=== PATIENT | male | born 1950 | race Caucasian/White ===

== ENCOUNTER → 2017-08-06 10:00 | Outpatient (CLI) | payer MEDICARE, OTHER, SELFPAY ==
[2017-08-06 11:15] LABS: AST(SGOT) 22 U/L (15-37); Alanine Aminotransfer ALT/SGPT 41 U/L (16-61); Albumin, Serum 3.7 g/dL (3.2-5.0); Alkaline Phosphatase 65 U/L (45-117); Bilirubin, Direct 0.26 mg/dL (0.00-0.30); Cholesterol 109 mg/dL (200); Globulin 3.4 g/dL (2.2-4.2); High Density Lipoprotein 52 mg/dL; Protein, Total 7.1 g/dL (6.4-8.2); Triglycerides 73 mg/dL; Very Low Density Lipoprotein 15 mg/dL (5-40)
== END ==
PROVIDERS: Family Provider Family Medicine; PCP Family Medicine; Visit Provider Physician Assistant Medical
DX: E78.5 Hyperlipidemia, unspecified (principal); Z79.899 Other long term (current) drug therapy
CPT/HCPCS: 36415; 80061; 80076

== ENCOUNTER → 2018-01-07 06:23 | Outpatient (CLI) | payer MEDICARE, OTHER, SELFPAY ==
--- NOTE | 2018-01-07 10:01 | STRESSREP ---
Stress Test Report Date: 01/07/2018 Procedure: Exercise tolerance test/imaging study Indications: Chest pain; CAD; PCI; CABG Consent: Per the patient Procedure: The patient exercised on a Uche protocol for 7 minutes and 25 seconds completing Stage II and 1 minute and 25 seconds of Stage III achieving a peak heart rate of 139 bpm (90 % predicted maximal heart rate) with a peak blood pressure 190/88 mmHg and a peak MET capacity of 9 METs. The baseline ECG demonstrated sinus bradycardia; right bundle branch block. The peak exercise ECG demonstrated continued right bundle branch block. There was a rare PVC during recovery. The functional capacity was considered good. There was no complaint of chest discomfort during exercise or recovery. The examination was discontinued secondary to dyspnea. Impression: 1. Technically adequate (percent predicted maximal heart rate greater than 85%) exercise tolerance test 2. Peak exercise ECG with continued right bundle branch block 3. There was a rare PVC during recovery. 4. Nuclear images pending Myocardial perfusion imaging study: Technique: The patient was injected with 13.7 mCi of technetium 99m Cardiolite and subsequently rest SPECT Cardiolite nuclear imaging was obtained in the horizontal long, vertical long, and short axis views. The patient exercised on a Uche protocol for 7 minutes and 25 seconds completing Stage II and 1 minute and 25 seconds of Stage III achieving a peak heart rate of 139 bpm (90 % predicted maximal heart rate) with a peak blood pressure 190/88 mmHg and a peak MET capacity of 9 METs. The patient was injected with 41.9 mCi of technetium 99m Cardiolite and subsequently stress SPECT Cardiolite nuclear imaging was obtained in the horizontal long, vertical long, and short axis views. A gated Cardiolite study at peak stress was obtained. Interpretation: Rest and stress SPECT Cardiolite nuclear imaging status post realignment, normalization, and attenuation correction, demonstrates the appearance of diminished tracer uptake in portions of the basal inferior septal basal inferior and basal inferolateral segments extending towards the mid inferolateral segments which status post stress appears to be somewhat more prominent in the mid inferolateral segments. There are similar type findings on the resting and stress polar map images. There is diminished end systolic thickening and brightening in the aforementioned areas. The gated Cardiolite study demonstrates diminished myocardial thickening and inward wall motion in the aforementioned areas. The reported LVEF is 54 %. Impression: 1. Rest and stress SPECT Cardiolite nuclear imaging demonstrate myocardial perfusion changes appearing compatible with an area of previous myocardial injury/infarction involving portions of the basal inferoseptal, basal inferior, basal inferolateral segments extending to the mid inferolateral segments with post stress myocardial perfusion changes appearing compatible with area of deo-infarct related myocardial ischemia. 2. The gated Cardiolite study reports an LVEF of 54 %. This note was generated with [employer] software. It may contain incorrect words, spelling, and punctuation that were not noted in checking the note before signing.
== END ==
PROVIDERS: Family Provider Family Medicine; PCP Family Medicine; Visit Provider Physician Assistant Medical
DX: I25.810 Atherosclerosis of coronary artery bypass graft(s) without angina pectoris (principal); Z95.5 Presence of coronary angioplasty implant and graft; Z95.1 Presence of aortocoronary bypass graft; I10 Essential (primary) hypertension; E78.5 Hyperlipidemia, unspecified; E66.9 Obesity, unspecified; R07.9 Chest pain, unspecified
CPT/HCPCS: 78452; 93017; A9500; A4216

== ENCOUNTER → 2018-05-07 07:35 | Outpatient (CLI) | payer MEDICARE, OTHER, SELFPAY ==
[2018-05-07 08:49] LABS: AST(SGOT) 31 U/L (15-37); Alanine Aminotransfer ALT/SGPT 51 U/L (16-61); Albumin, Serum 3.8 g/dL (3.2-5.0); Alkaline Phosphatase 68 U/L (45-117); Bilirubin, Direct 0.29 mg/dL (0.00-0.30); Cholesterol 132 mg/dL (200); Globulin 3.6 g/dL (2.2-4.2); High Density Lipoprotein 54 mg/dL; Protein, Total 7.4 g/dL (6.4-8.2); Triglycerides 81 mg/dL; Very Low Density Lipoprotein 16 mg/dL (5-40)
== END ==
PROVIDERS: Family Provider Family Medicine; PCP Family Medicine; Referring Provider Physician Assistant Medical; Visit Provider Physician Assistant Medical
DX: E78.5 Hyperlipidemia, unspecified (principal)
CPT/HCPCS: 36415; 80061; 80076

== ENCOUNTER → 2019-12-11 08:50 | Outpatient (CLI) | payer MEDICARE, OTHER, SELFPAY ==
[2019-12-04 14:43] VITALS: BMI 40.7
[2019-12-11 09:26] LABS: AST(SGOT) 29 U/L (15-37); Alanine Aminotransfer ALT/SGPT 46 U/L (16-61); Albumin, Serum 3.6 g/dL (3.2-5.0); Alkaline Phosphatase 73 U/L (45-117); Bilirubin, Direct 0.27 mg/dL (0.00-0.30); Cholesterol 135 mg/dL (200); Globulin 3.7 g/dL (2.2-4.2); High Density Lipoprotein 59 mg/dL; Protein, Total 7.3 g/dL (6.4-8.2); Triglycerides 114 mg/dL; Very Low Density Lipoprotein 23 mg/dL (5-40)
== END ==
PROVIDERS: PCP Family Medicine; Referring Provider Internal Medicine Cardiovascular Disease; Visit Provider Internal Medicine Cardiovascular Disease
DX: E78.5 Hyperlipidemia, unspecified (principal)
CPT/HCPCS: 36415; 80061; 80076

== ENCOUNTER 2020-03-28 02:27 | Emergency (ER) | payer MEDICARE, OTHER, SELFPAY ==
[2019-12-04 14:43] VITALS: BMI 40.7
[2020-03-28 02:28] VITALS: BP 107/66; PULSE 67; RESP 18; TEMP 38; O2SAT 94; BMI 41.5
--- NOTE | 2020-03-28 02:35 | EKG12_ITS ---
Test Reason : SYNCOPE Blood Pressure : / mmHG Vent. Rate : 067 BPM Atrial Rate : 067 BPM P-R Int : 146 ms QRS Dur : 144 ms QT Int : 440 ms P-R-T Axes : 033 267 -28 degrees QTc Int : 464 ms Normal sinus rhythm Right bundle branch block Abnormal ECG Confirmed by ARTHUR SALAZAR, RON ([id number]), dictionary editor AZALIA JAMIL ([id number]) on 03/29/2020 11:12:09 AM Referred By: WENDY Confirmed By:RON GIBSON MD
[2020-03-28] MEDS: 0.9% Normal Saline 1,000 ML 1000 ML IV (02:41)
[2020-03-28 02:42] LABS: Absolute Lymphocyte Count 1.65 X10^3/uL (0.83-4.51); Absolute Neutrophil Count 3.3 X10^3/uL (2.0-7.7); Basophil# 0.05 X10^3/uL; Basophil% 0.8 % (0-1); Eosinophil# 0.01 X10^3/uL; Eosinophils% 0.2 % (0-5); Hematocrit 46.5 % (40-54); Hemoglobin 15.2 g/dL (13.0-16.5); Lymphocyte # 1.65 X10^3/ul (4.0); Lymphocyte % 27.5 % (19-41); Mean Corp Hgb Conc 32.7 g/dL (32-36); Mean Corpuscular Hgb 31.5 pg (27.0-32.0); Mean Corpuscular Volume 96.5 fL (80-94); Mean Platelet Vol. 10.9 fl (6.2-12.0); Monocyte# 0.93 X10^3/uL; Monocyte% 15.5 % (0-10); NRBC Flagged by Analyzer 0 % (0-5); Neutrophil # 3.34 X10^3/uL (2.7-7.7); Neutrophil % 55.7 % (47-70); Platelet Count 181 K/mm3 (150-450); RBC Distribution Width CV 14.1 % (11.6-14.6); RBC Distribution Width SD 50.3 fl (35.1-43.9); Red Blood Count 4.82 M/mm3 (4.6-6.2)
--- NOTE | 2020-03-28 02:50 | RAD_ITS ---
HISTORY: syncope, not feeling well last few days EXAM: XR Chest 1 View: COMPARISON: July 15, 2013 FINDINGS: # of images incl. paperwork: 1 Calcific plaque in the aortic arch is similar. Sternal wires remain. Minimal age related fibrotic lung disease is similar Heart is not enlarged. No acute osseous pathology perceived. Pulmonary vascularity is distinct. No effusions. RAD/Chest 1 View (Portable) IMPRESSION: No acute cardiopulmonary disease. at 0335 Reported and signed by: Olegario Kincaid MD Electronically Signed: Olegario Kincaid MD at 3:34 EST Tel , Service support ,
[2020-03-28 02:56] LABS: Anion Gap 5 (5-15); BUN 15 mg/dL (7-18); BUN/Creat Ratio 10.7 RATIO (10-20); Calcium,Total 8.4 mg/dL (8.5-10.1); Chloride 107 mmol/L (98-107); EST Glomerular Filtration Rate 54 mL/min (>60); Est Glom Filt Rate - Afr Amer 65 mL/min (>60); Estimated Creatinine Clearance 52.14 ml/min; Glucose 126 mg/dL (74-106); Sodium Level 140 mmol/L (136-145)
--- NOTE | 2020-03-28 03:47 | ED.DCSUM_ITS ---
- ER Visit Summary Date of Service: 03/28/20 Chief Complaint: Syncope History of Present Illness: The patient is a 69 M who presents with syncope. He states he got up in the middle the night to go to the bathroom and felt dizzy and then had a syncopal episode. No history of this in the past. He had cold symptoms for the past 2 days and has felt fatigued. No chest pain or shortness of breath before or after the syncopal episode. Has been eating and drinking okay. He has had a slight cough as well. There was no seizure-like activity. Physical Examination: Vital signs reviewed. HEENT exam unremarkable. Heart is regular rate and rhythm without murmurs. Lungs are clear to auscultation. Abdomen is soft and nontender. Extremities reveal no edema. Peripheral pulses are equal. Skin exam normal. Neurologic exam normal. Test Results: EKG was sinus rhythm with a right bundle branch block. No acute ST changes. Chest x-ray per my and radiologist interpretation reveals no acute findings. Laboratory studies show a glucose of 126, creatinine 1.4. Troponin is less than 0.015. Covid test is positive. Emergency Department Course and Treatment: The patient was given IV fluids. He feels well. He is 95% on room air. I feel that he can be treated as an outpatient. He would like to go home as well. Patient will increase fluids and take Tylenol for any pain and fever. Treatment Plan: [] Disposition: Discharge Impression: Syncope, COVID-19 This note was generated with [employer] dictation software. It may contain incorrect words, spelling, and punctuation that were not noted in review of the chart prior to signing ED Disposition - Plan for ED Patient: Disposition: Home or Assisted Living Instructions: ED VAGAL SYNCOPE Referrals: Damián Smith III, MD [Primary Care Provider] -
[2020-03-28 04:01] VITALS: BP 110/74; PULSE 60; RESP 19; O2SAT 95
== END 2020-03-28 04:01 | disposition home or self-care (01) ==
PROVIDERS: Emergency Provider Emergency Medicine; PCP Family Medicine
DX: R55 Syncope and collapse (principal); U07.1 COVID-19; I25.10 Atherosclerotic heart disease of native coronary artery without angina pectoris; I10 Essential (primary) hypertension; Z79.82 Long term (current) use of aspirin; Z79.899 Other long term (current) drug therapy
CPT/HCPCS: 71045; 80048; 84484; 85025; 87426; 93005; 99285; J7030

== ENCOUNTER → 2020-09-18 10:48 | Outpatient (CLI) | payer MEDICARE, OTHER, SELFPAY ==
[2020-09-04 13:47] VITALS: BMI 44.5
--- NOTE | 2020-09-18 10:49 | ECHOD_ITS ---
Reason For Study: SOB Procedure This was a 2D Doppler, Color Flow transthoracic echocardiogram. The study was technically difficult. Contrast injection was performed. Exam performed in department. Left Ventricle Based upon the 2D echocardiographic and contrast enhanced images obtained there appears to be grossly normal left ventricular size, wall motion, and systolic function. The estimated ejection fraction is 60 %. Diastolic function is indeterminate. Right Ventricle Based upon the 2D echocardiographic images obtained there appears to be grossly normal right ventricular size and systolic function. Atria Normal left atrium. Normal right atrium. No doppler evidence for ASD. Mitral Valve There is no mitral annular calcification. Normal mitral valve. Tricuspid Valve The tricuspid valve is not well visualized. Aortic Valve Trisinus/trileaflet aortic valve. Mild focal aortic valve calcification. Pulmonic Valve The pulmonic valve is not well visualized. Trivial pulmonic valve insufficiency. Great Vessels Normal sized aortic root. Pericardium/Pleural No pericardial effusion. Medication 22 gauge I.V. with prn adaptor inserted into right arm. Diluted definity 3ml given slow IV push to enhance endocardial definition. MMode/2D Measurements & Calculations LVIDd: 3.9 cm IVSd: 1.2 cm Ao root diam: 3.8 cm LVIDs: 3.2 cm LVPWd: 1.4 cm LA dimension: 4.4 cm FS: 20.0 % LAV(MOD-bp): 92.0 ml LA A4 area: 24.0 cm2 LAV(MOD-bp) Indexed: 36.6 ml/m2 LAV(MOD-sp2): 91.2 ml LAV(MOD-sp4): 71.4 ml Time Measurements MV dec time: 0.31 sec Doppler Measurements & Calculations MV E max darien: 61.0 cm/sec Lat Peak E' Darien: 8.5 cm/sec Med Peak E' Darien: 6.7 cm/sec MV A max darien: 85.3 cm/sec E/E' lat: 7.2 E/E' med: 9.1 MV E/A: 0.71 MV V2 max: 72.8 cm/sec MV P1/2t max darien: 60.4 cm/sec Ao V2 max: 143.8 cm/sec MV max P.1 mmHg MV P1/2t: 158.4 msec Ao max P.3 mmHg MV V2 mean: 38.5 cm/sec MV dec slope: 111.7 cm/sec2 MV mean P.69 mmHg MV V2 VTI: 28.4 cm MVA(P1/2t): 1.4 cm2 LV V1 max: 90.8 cm/sec PA V2 max: 100.2 cm/sec LV V1 max P.3 mmHg ECHO/Echo Complete W/ Contrast Interpretation Summary The study was technically difficult. Contrast injection was performed. Based upon the 2D echocardiographic and contrast enhanced images obtained there appears to be grossly normal left ventricular size, wall motion, and systolic function. The estimated ejection fraction is 60 %. Mild focal aortic valve calcification. Trivial pulmonic valve insufficiency. Diastolic function is indeterminate. Ordering Physician: Johnathan Rico Referring Physician: SYL Smith M.D. Performed By: Shlomo Stauffer RCS
== END ==
PROVIDERS: PCP Family Medicine; Referring Provider Internal Medicine Cardiovascular Disease; Visit Provider Internal Medicine Cardiovascular Disease
DX: I25.810 Atherosclerosis of coronary artery bypass graft(s) without angina pectoris (principal)
CPT/HCPCS: 93306; Q9957; A4216; C8929

== ENCOUNTER 2020-12-15 18:12 | Emergency (ER) | payer MEDICARE, OTHER, SELFPAY ==
[2020-09-04 13:47] VITALS: BMI 44.5
[2020-12-15 18:13] VITALS: BP 144/93; PULSE 90; RESP 18; TEMP 38; O2SAT 95; BMI 43.7
--- NOTE | 2020-12-15 19:04 | EKG12_ITS ---
Test Reason : SOB Blood Pressure : / mmHG Vent. Rate : 082 BPM Atrial Rate : 082 BPM P-R Int : 142 ms QRS Dur : 148 ms QT Int : 412 ms P-R-T Axes : 054 -86 015 degrees QTc Int : 481 ms Normal sinus rhythm Right bundle branch block Left anterior fascicular block Bifascicular block Abnormal ECG Confirmed by ARTHUR SALAZAR, RON ([id number]), editor producer AZALIA JAMIL ([id number]) on 12/17/2020 9:28:43 AM Referred By: LAINE Confirmed By:RON GIBSON MD
--- NOTE | 2020-12-15 19:04 | RAD_ITS ---
STUDY: X-RAY CHEST REASON FOR EXAM: Male, 70 years old. cough TECHNIQUE: Frontal portable view of the chest COMPARISON: 28 March 2020 FINDINGS: There are ill-defined bilateral mid to lower lung zone opacities. There is no pneumothorax, pulmonary edema, cardiomegaly or pleural effusions. There is sternotomy wires. Osseous structures are intact. RAD/Chest 1 View (Portable) IMPRESSION: Questionable bilateral lower lung opacities, possibly early viral pneumonia and/or atelectasis. Consider confirmatory imaging. Electronically Signed: Candi Caldwell MD at 20:30 EDT Tel , Service support ,
[2020-12-15] MEDS: dexAMETHasone 10 MG/ML Vial IV (19:19)
[2020-12-15] MEDS: Acetaminophen 500 MG Tablet 1000 MG PO (19:31)
[2020-12-15 19:32] VITALS: BP 174/90; PULSE 81; RESP 95; TEMP 37.8; O2SAT 18
[2020-12-15 19:34] LABS: Absolute Lymphocyte Count 0.62 X10^3/uL (0.83-4.51); Absolute Neutrophil Count 4.3 X10^3/uL (2.0-7.7); Basophil# 0.04 X10^3/uL; Basophil% 0.8 % (0-1); Eosinophil# 0.02 X10^3/uL; Eosinophils% 0.4 % (0-5); Hematocrit 48.7 % (40-54); Hemoglobin 16.1 g/dL (13.0-16.5); Lymphocyte # 0.62 X10^3/ul (0.83-4.51); Lymphocyte % 11.8 % (19-41); Mean Corp Hgb Conc 33.1 g/dL (32-36); Mean Corpuscular Hgb 31.2 pg (27.0-32.0); Mean Corpuscular Volume 94.4 fL (80-94); Mean Platelet Vol. 10.9 fl (6.2-12.0); Monocyte# 0.26 X10^3/uL; NRBC Flagged by Analyzer 0 % (0-5); Neutrophil # 4.27 X10^3/uL (2.7-7.7); Neutrophil % 81.2 % (47-70); POSITIVE MORPHOLOGY YES; Platelet Count 102 K/mm3 (150-450); RBC Distribution Width CV 13.9 % (11.6-14.6); RBC Distribution Width SD 49.1 fl (35.1-43.9); Red Blood Count 5.16 M/mm3 (4.6-6.2); White Blood Count 5.3 K/mm3 (4.4-11.0)
[2020-12-15 19:36] LABS: Differential Indicated SCAN CRITERIA MET
[2020-12-15 19:37] VITALS: O2SAT 95
[2020-12-15 19:46] LABS: Anion Gap 7 (5-15); BUN 17 mg/dL (7-18); BUN/Creat Ratio 13.8 RATIO (10-20); Calcium,Total 8.5 mg/dL (8.5-10.1); Chloride 102 mmol/L (98-107); Creatinine, Serum 1.23 mg/dL (0.70-1.30); EST Glomerular Filtration Rate 62 mL/min (>60); Est Glom Filt Rate - Afr Amer 75 mL/min (>60); Estimated Creatinine Clearance 58.53 ml/min; Glucose 135 mg/dL (74-106); Potassium 3.7 mmol/L (3.5-5.1); Sodium Level 135 mmol/L (136-145); Troponin-I HS 37.6 pg/mL (3.0-78.5)
[2020-12-15 20:01] LABS: Differential Comment SCANNED
[2020-12-15 20:17] LABS: BNP,B-Type NATRIURETIC PEPTIDE 64.9 pg/mL (0-100)
[2020-12-15 20:57] VITALS: BP 170/90; PULSE 84; RESP 16; TEMP 36.9; O2SAT 95
--- NOTE | 2020-12-15 21:08 | ED.VIS.DYS ---
HPI History of Present Illness Chief Complaint: Shortness of Breath Narrative Narrative: Patient is a 70-year-old male who states that he has had about 5 days of nasal congestion cough fatigue and shortness of breath. He states he had Covid back around Thanksgiving and this feels similar nature. He denies any known sick contacts but states that with his persistent symptoms or was concerned he was developing infection once again and therefore comes in for evaluation [facility] Medical History (Updated 12/15/20 @ 21:[address] Jesse Wick, DO) Anxiety and depression Atherosclerosis of coronary artery bypass graft without angina pectoris Daytime somnolence Essential hypertension GERD (gastroesophageal reflux disease) Hyperlipidemia Obesity (BMI 30.0-34.9) BABS (obstructive sleep apnea) Snoring Home Medications aspirin 81 mg PO DAILY@0800 07/15/13 [History Last Taken 07/14/13 0800] atorvastatin 80 mg PO QHS 07/15/13 [History Last Taken 07/14/13 2100] cholecalciferol (vitamin D3) 1,000 unit PO DAILY 07/15/13 [History Last Taken 07/14/13 0800] citalopram 10 mg PO DAILY 07/15/13 [History Last Taken 09/05/13 09:30] clopidogrel 75 mg PO DAILY 07/15/13 [History Last Taken 07/14/13 0800] nitroglycerin 0.4 mg SUBLINGUAL Q5M PRN 07/15/13 [History Last Taken 07/15/13 0400] ascorbic acid (vitamin C) 1,000 mg tablet 1 g PO QDAY tab 07/16/17 [History Last Taken Unknown] losartan 25 mg tablet 25 mg PO QDAY 07/16/17 [History Last Taken Unknown] metoprolol succinate 25 mg tablet,extended release 24 hr 25 mg PO QDAY tab 07/16/17 [History Last Taken Unknown] alprazolam 0.5 mg tablet 0.5 mg PO BID PRN tab 08/30/17 [History Last Taken Unknown] cyclobenzaprine 5 mg tablet 5 mg PO QDAY PRN 08/30/17 [History Last Taken Unknown] gabapentin 300 mg capsule 600 mg PO QHS cap 08/30/17 [History Last Taken Unknown] glucosamine sulfate 1,000 mg capsule 1,000 mg PO QDAY cap 08/30/17 [History Last Taken Unknown] hydrocodone 5 mg-acetaminophen 500 mg tablet 1 tab PO QDAY PRN tab 08/30/17 [History Last Taken Unknown] magnesium oxide 500 mg capsule 500 mg PO QDAY cap 08/30/17 [History Last Taken Unknown] isosorbide mononitrate 60 mg tablet,extended release 24 hr 60 mg PO DAILY #90 tab 03/14/18 [Rx Last Taken Unknown] sodium chloride-aloe vera nasal spray 1 spray INTRANASAL Q1-4H PRN 05/09/18 [History Last Taken Unknown] ranolazine 500 mg tablet,extended release,12 hr 500 mg PO BID #180 tab 08/19/20 [Rx Last Taken Unknown] doxycycline hyclate 100 mg PO BID #14 cap 12/15/20 [Rx Last Taken Unknown] prednisone 40 mg PO DAILY 5 Days #10 tab 12/15/20 [Rx Last Taken Unknown] Allergy/AdvReac Type Severity Reaction Status Date / Time No Known Allergies Allergy Verified 09/04/20 13:51 Family History Father CAD (coronary artery disease) Hypertension Myocardial infarction Hx of CABG Surgical History History of hernia repair History of laminectomy History of tonsillectomy Postsurgical percutaneous transluminal coronary angioplasty (PTCA) status Presence of aortocoronary bypass graft (~09/28/12) Presence of stent in coronary artery (~03/16/13) Social History Smoking Status: Former smoker how long ago did patient quit smokin years ago alcohol intake: current alcohol intake frequency: a few times a week Alcohol type: beer and hard liquor details: occasional beer substance use type: does not use caffeine: Yes Type: coffee Number of servings: 2 ROS ROS ED Constitutional Constitutional ED: Reports chills and fever(s) ENT ENT ED: Reports rhinorrhea; Denies sore throat Cardiovascular Cardiovascular: Denies chest pain Respiratory/Chest Respiratory/Chest: Reports cough and dyspnea Gastrointestinal Gastrointestinal: Reports nausea; Denies abdominal pain, diarrhea or vomiting Genitourinary Genitourinary ED: Denies dysuria Musculoskeletal Musculoskeletal: Reports myalgias Integumentary Denies rash Neurologic Neurologic: Denies headache(s) EXAM Physical Exam Const Vital Signs: 12/15/20 18:13 12/15/20 19:32 12/15/20 20:57 Temperature 100.4 F H 100.1 F H 98.5 F Temperature Source Oral Temporal Temporal Pulse Rate 90 81 84 Respiratory Rate 18 95 H 16 Blood Pressure 144/93 H 174/90 H 170/90 H Blood Pressure Mean 110 118 116 Pulse Ox 95 18 95 Oxygen Delivery Method Room Air Room Air Room Air Positive well nourished and well developed General Appearance ED: well developed HEENT HEENT Narrative: There is cobblestoning the posterior pharynx consistent with sinus drainage but no airway edema or compromise Eyes PERRL and EOMs intact bilaterally Neck supple Lymph Lymphatic Narrative: Positive anterior cervical lymphadenopathy Resp Resp Narrative: Breath sounds are slight diminished throughout with faint expiratory wheeze but no signs of respiratory distress Cardio regular rate and regular rhythm GI non-tender and non-distended Auscultation: normoactive bowel sounds Palpation: soft Back/Spine normal to inspection Extremity Extremity Narrative: No asymmetric edema no pitting edema negative Homans' sign bilaterally Neuro oriented x3 Sensorium / Orientation: alert and oriented to person Psych mental status grossly normal Skin Rashes: no rashes MDM MDM MDM Narrative Medical decision making narrative: Patient presented to the ER with low-grade temperature but otherwise was maintaining a room air pulse ox in the mid 90s and in no acute respiratory distress. With his complaint of symptoms I did elect to perform repeat Covid testing as well as chest x-ray and basic lab. Labs reveal no clinically significant findings. Chest x-ray questions developing infiltrate and Covid test is negative. The patient was ambulated in the hospital and had no desaturation. Therefore at this time with the slight developing pneumonia on x-ray but negative Covid test and no lab abnormalities as well as no desaturation with ambulation patient can be discharged home with symptomatic care Lab Data Labs: Laboratory Results - last 24 hr 12/15/20 12/15/20 12/15/20 19:20 19:20 19:20 WBC 5.3 RBC 5.16 Hgb 16.1 Hct 48.7 MCV 94.4 H MCH 31.2 MCHC 33.1 RDW Std Deviation 49.1 H RDW Coeff of Eddi 13.9 Plt Count 102 L MPV 10.9 Immature Gran % (Auto) 0.800 Neut % (Auto) 81.2 H Lymph % (Auto) 11.8 L Frederick % (Auto) 5.0 Eos % (Auto) 0.4 Baso % (Auto) 0.8 Absolute Neuts (auto) 4.3 Absolute Lymphs (auto) 0.62 L Nucleated RBC % 0 Differential Comment SCANNED Sodium 135 L Potassium 3.7 Chloride 102 Carbon Dioxide 26.0 Anion Gap 7 BUN 17 Creatinine 1.23 Estim Creat Clear Calc 58.53 Est GFR (MDRD) Af Amer 75 Est GFR (MDRD) Non-Af 62 BUN/Creatinine Ratio 13.8 Glucose 135 H Calcium 8.5 Troponin I High Sens 37.6 B-Natriuretic Peptide 64.9 Radiography Diagnostic Testing: Radiology Impression Chest X-Ray 12/15/20 19:04 IMPRESSION: Questionable bilateral lower lung opacities, possibly early viral pneumonia and/or atelectasis. Consider confirmatory imaging. Electronically Signed: Candi Caldwell MD at 20:30 EDT Tel , Service support , Discharge Plan Triage Chief Complaint: Shortness of Breath ED Provider: Jesse Wick Dx/Rx/DC Orders Clinical Impression: Dyspnea, Pneumonia Instructions: ED Dyspnea Prescriptions: New doxycycline hyclate 100 mg capsule 100 mg PO BID Qty: 14 RF: 0 prednisone 20 mg tablet 40 mg PO DAILY 5 Days Qty: 10 RF: 0 No Action magnesium oxide 500 mg capsule 500 mg PO QDAY RF: 0 glucosamine sulfate 1,000 mg capsule 1,000 mg capsule 1,000 mg PO QDAY RF: 0 cyclobenzaprine 5 mg tablet 5 mg PO QDAY PRN (Reason: Pain 1-10 Or Fever) RF: 0 alprazolam [Xanax] 0.5 mg tablet 0.5 mg PO BID PRN (Reason: Anxiety) RF: 0 hydrocodone 5 mg-acetaminophen 500 mg tablet 5-500 mg tablet 1 tab PO QDAY PRN (Reason: Pain Score 1-10) RF: 0 ascorbic acid (vitamin C) 1,000 mg tablet 1 g PO QDAY RF: 0 losartan 25 mg tablet 25 mg PO QDAY RF: 0 metoprolol succinate 25 mg tablet extended release 24 hr 25 mg PO QDAY RF: 0 gabapentin 300 mg capsule 600 mg PO QHS RF: 0 sodium chloride-aloe vera nasal spray spray,non-aerosol 1 spray INTRANASAL Q1-4H PRN (Reason: Allergies) RF: 0 atorvastatin 80 MG tablet 80 mg PO QHS RF: 0 citalopram 10 MG tablet 10 mg PO DAILY RF: 0 clopidogrel 75 MG tablet 75 mg PO DAILY RF: 0 aspirin 81 MG tablet 81 mg PO DAILY@0800 RF: 0 nitroglycerin 0.4 MG tablet 0.4 mg SUBLINGUAL Q5M PRN (Reason: Chest Pain) RF: 0 cholecalciferol (vitamin D3) 1,000 UNIT capsule 1,000 unit PO DAILY RF: 0 isosorbide mononitrate 60 mg tablet extended release 24 hr 60 mg PO DAILY Qty: 90 RF: 3 ranolazine 500 mg tablet extended release 12 hr 500 mg PO BID Qty: 180 RF: 3 Primary Care Provider: Damián Smith III Referrals: Damián Smith III, MD [Primary Care Provider] - 3-5 Days if not improving Disposition Disposition: Home, Self Care
[2020-12-15 21:11] VITALS: BP 153/87; PULSE 65; PULSE 68; RESP 16; RESP 19; TEMP 36.9; O2SAT 95; O2SAT 96
[2020-12-15] MEDS: Doxycycline 100 MG CAPSULE PO (21:16)
== END 2020-12-15 21:24 | disposition home or self-care (01) ==
PROVIDERS: Emergency Provider Emergency Medicine; PCP Family Medicine
DX: J18.9 Pneumonia, unspecified organism (principal); Z86.16 Personal history of COVID-19; E78.5 Hyperlipidemia, unspecified; K21.9 Gastro-esophageal reflux disease without esophagitis; I10 Essential (primary) hypertension; I25.810 Atherosclerosis of coronary artery bypass graft(s) without angina pectoris; E66.9 Obesity, unspecified; G47.33 Obstructive sleep apnea (adult) (pediatric); Z79.02 Long term (current) use of antithrombotics/antiplatelets; Z79.82 Long term (current) use of aspirin; Z79.899 Other long term (current) drug therapy; Z87.891 Personal history of nicotine dependence; Z68.41 Body mass index [BMI] 40.0-44.9, adult; R06.02 Shortness of breath
CPT/HCPCS: 71045; 80048; 83880; 84484; 85025; 87426; 93005; 96374; 99283; A4216

== ENCOUNTER → 2021-03-19 11:52 | Outpatient (CLI) | payer MEDICARE, OTHER, SELFPAY ==
[2021-03-19 15:26] LABS: AST(SGOT) 32 U/L (15-37); Alanine Aminotransfer ALT/SGPT 54 U/L (16-61); Albumin, Serum 3.5 g/dL (3.2-5.0); Alkaline Phosphatase 67 U/L (45-117); Bilirubin, Direct 0.23 mg/dL (0.00-0.30); Cholesterol 130 mg/dL (200); Globulin 3.5 g/dL (2.2-4.2); High Density Lipoprotein 53 mg/dL; Triglycerides 145 mg/dL; Very Low Density Lipoprotein 29 mg/dL (5-40)
== END ==
PROVIDERS: PCP Family Medicine; Visit Provider Physician Assistant Medical
DX: E78.00 Pure hypercholesterolemia, unspecified (principal)
CPT/HCPCS: 36415; 80061; 80076

== ENCOUNTER 2021-05-27 10:26 | Emergency (ER) | payer MEDICARE, OTHER, SELFPAY ==
[2021-05-27 10:28] VITALS: BP 181/103; PULSE 75; RESP 16; TEMP 36.6; O2SAT 98; BMI 44.4
--- NOTE | 2021-05-27 10:36 | RAD_ITS ---
STUDY: X-RAY - LEFT HAND REASON FOR EXAM: Male, 70 years old. Laceration of the third digit. TECHNIQUE: 3 view(s) of the hand. COMPARISON: None. FINDINGS: Normal radiocarpal articulation. Normal distal radioulnar joint. Normal visualized carpal bones. Normal carpal articulations There is degenerative arthrosis of the carpometacarpal articulation of the thumb with lateral subluxation of the first metacarpus. Normal second through fifth carpometacarpal joints. Normal metacarpi. Normal metacarpophalangeal joint of the thumb. Normal interphalangeal joint of the thumb. Normal proximal and distal phalanges of the thumb. Normal metacarpophalangeal joints of the second through fifth fingers. There is diffuse articular joint space narrowing of the proximal and distal interphalangeal joints of the second through fifth fingers, but without erosive changes or periarticular soft tissue swelling. Transverse fracture of the distal portion of the distal phalanx of the third digit. Soft tissue swelling. RAD/Hand Min 3 Views IMPRESSION: Transverse fracture of the distal portion of the distal phalanx of the third digit Soft tissue swelling. Joint changes of the proximal and distal interphalangeal joints. Electronically Signed: Rojas Varghese MD at 11:46 EST ,
--- NOTE | 2021-05-27 10:37 | EDS_ITS ---
HPI History of Present Illness Chief Complaint: Upper Extremity Injury Informant: patient Narrative Narrative: Patient received a tearing/crush/cutting injury from a walk behind snowblower to his nondominant left hand index fingertip. This happened just before arrival. He is on Plavix and aspirin also. No other injury. It was bleeding a bit. Putting gauze on it and compression help that. Touching it makes it hurt a little bit more. No other activity changes it. Last tetanus is not certain. He thinks it may be within 10 years but not sure. [facility] Medical History (Updated 05/27/21 @ 12:[address] Seamus Baum MD) Anxiety and depression Atherosclerosis of coronary artery bypass graft without angina pectoris Daytime somnolence Essential hypertension GERD (gastroesophageal reflux disease) Hyperlipidemia Obesity (BMI 30.0-34.9) BABS (obstructive sleep apnea) Snoring Home Medications aspirin 81 mg PO DAILY@0800 07/15/13 [History Last Taken 07/14/13 0800] atorvastatin 80 mg PO QHS 07/15/13 [History Last Taken 07/14/13 2100] cholecalciferol (vitamin D3) 1,000 unit PO DAILY 07/15/13 [History Last Taken 07/14/13 0800] citalopram 10 mg PO DAILY 07/15/13 [History Last Taken 09/05/13 09:30] clopidogrel 75 mg PO DAILY 07/15/13 [History Last Taken 07/14/13 0800] nitroglycerin 0.4 mg SUBLINGUAL Q5M PRN 07/15/13 [History Last Taken 07/15/13 0400] ascorbic acid (vitamin C) 1,000 mg tablet 1 g PO QDAY tab 07/16/17 [History Last Taken Unknown] losartan 25 mg tablet 25 mg PO QDAY 07/16/17 [History Last Taken Unknown] metoprolol succinate 25 mg tablet,extended release 24 hr 25 mg PO QDAY tab 07/16/17 [History Last Taken Unknown] alprazolam 0.5 mg tablet 0.5 mg PO BID PRN tab 08/30/17 [History Last Taken Unknown] cyclobenzaprine 5 mg tablet 5 mg PO QDAY PRN 08/30/17 [History Last Taken Unknown] gabapentin 300 mg capsule 600 mg PO QHS cap 08/30/17 [History Last Taken Unknown] glucosamine sulfate 1,000 mg capsule 1,000 mg PO QDAY cap 08/30/17 [History Last Taken Unknown] hydrocodone 5 mg-acetaminophen 500 mg tablet 1 tab PO QDAY PRN tab 08/30/17 [History Last Taken Unknown] magnesium oxide 500 mg capsule 500 mg PO QDAY cap 08/30/17 [History Last Taken Unknown] isosorbide mononitrate 60 mg tablet,extended release 24 hr 60 mg PO DAILY #90 tab 03/14/18 [Rx Last Taken Unknown] sodium chloride-aloe vera nasal spray 1 spray INTRANASAL Q1-4H PRN 05/09/18 [History Last Taken Unknown] ranolazine 500 mg tablet,extended release,12 hr 500 mg PO BID #180 tab 08/19/20 [Rx Last Taken Unknown] meloxicam 15 mg tablet 15 mg PO DAILY 03/19/21 [History Last Taken Unknown] cephalexin 500 mg PO Q6 #40 cap 05/27/21 [Rx Last Taken Unknown] oxycodone-acetaminophen [Percocet] 1 tab PO Q6H PRN 3 Days #10 tab 05/27/21 [Rx Last Taken Unknown] Allergy/AdvReac Type Severity Reaction Status Date / Time No Known Allergies Allergy Verified 05/27/21 10:28 Family History Father CAD (coronary artery disease) Hypertension Myocardial infarction Hx of CABG Surgical History History of hernia repair History of laminectomy History of tonsillectomy Postsurgical percutaneous transluminal coronary angioplasty (PTCA) status Presence of aortocoronary bypass graft (~09/28/12) Presence of stent in coronary artery (~03/16/13) Social History Smoking Status: Former smoker how long ago did patient quit smokin years ago alcohol intake: current alcohol intake frequency: a few times a week Alcohol type: beer and hard liquor details: occasional beer substance use type: does not use caffeine: Yes Type: coffee Number of servings: 2 ROS ROS ED Constitutional Constitutional ED: Denies chills or fever(s) Gastrointestinal Gastrointestinal: Denies nausea or vomiting Musculoskeletal Musculoskeletal: Reports other Details: Left fingertip injury see history of present illness Integumentary Reports other Details: Laceration/tear of left Neurologic Neurologic: Reports paresthesias Hematologic/Lymphatic Hematologic/Lymphatic: Reports easy bleeding and easy bruising EXAM Physical Exam Const Vital Signs: 05/27/21 10:28 Temperature 98 F Temperature Source Temporal Pulse Rate 75 Respiratory Rate 16 Blood Pressure 181/103 H Blood Pressure Mean 129 Pulse Ox 98 Oxygen Delivery Method Room Air Positive well nourished General Appearance ED: NAD HEENT normocephalic; Negative for trauma Resp normal respiratory effort Cardio regular rate Extremity Extremity Narrative: Has a traumatic near amputation of the left long fingertip. The edges are quite irregular crushed and torn. This is not in the clean laceration. There is minimal ooze from the wound. The distal portion does still have some sensation but it is clearly reduced from just proximal to the laceration. There is also a slight subungual hematoma to the nail and the riing finger next to it. Range of motion is actually intact both flexor tendons as well as the extensor tendon. Neuro oriented x3 Sensorium / Orientation: alert Sensory Exam: sensory level loss detected Psych mental status grossly normal Skin Skin Narrative: Irregular jagged laceration mostly on the volar surface. Trauma: laceration MDM MDM MDM Narrative Medical decision making narrative: X-rays are consistent with distal tuft transverse fracture. I discussed risk benefits and options with the patient we proceeded to fix that this here. Procedure: Suture and repair of crush laceration left distal long finger: A total of 3 cc of 1% lidocaine and 0.5% Marcaine mixed were used for a digital block. With excellent anesthesia. The distal areas were copiously scrubbed and irrigated. We looked at this and bloodless field. I am not able to see any bone or protruding bone. The wound edges are extremely damaged and crushed. They are afraid. There is a main laceration that is about 2 cm long that goes significantly around the finger. There is a more proximal 1 cm laceration. A proximal laceration has a small ooze from it more than the distal. The distal portion does not appear to be significantly devascularized though. After extensive cleaning, suturing was done. It was sutured with 5 interrupted 4-0 Ethilon sutures. The remaining distal tuft fatty tissue was tucked within the wound. But the edges are quite irregular. A single stitch was then placed in the 1 cm more proximal laceration. It actually went back with good cosmesis. Good hemostasis was obtained. The patient was happy with the results. I discussed signs of infection. I discussed follow-up as well as leaving the sutures in for 10 to 14 days. He will be referred to orthopedics. I will also place him on antibiotics. Discharge Plan Triage Chief Complaint: Upper Extremity Injury ED Provider: Seamus Baum Dx/Rx/DC Orders Clinical Impression: Laceration of finger of left hand, Open fracture of tuft of distal phalanx of finger, Crush injury to finger, Subungual hematoma of finger Instructions: ED Laceration: All Closures Prescriptions: New oxycodone-acetaminophen [Percocet] 5-325 mg tablet 1 tab PO Q6H PRN (Reason: pain) 3 Days Qty: 10 RF: 0 cephalexin [cephalexin] 500 MG capsule 500 mg PO Q6 Qty: 40 RF: 0 No Action magnesium oxide 500 mg capsule 500 mg PO QDAY RF: 0 glucosamine sulfate 1,000 mg capsule 1,000 mg capsule 1,000 mg PO QDAY RF: 0 cyclobenzaprine 5 mg tablet 5 mg PO QDAY PRN (Reason: Pain 1-10 Or Fever) RF: 0 alprazolam [Xanax] 0.5 mg tablet 0.5 mg PO BID PRN (Reason: Anxiety) RF: 0 hydrocodone 5 mg-acetaminophen 500 mg tablet 5-500 mg tablet 1 tab PO QDAY PRN (Reason: Pain Score 1-10) RF: 0 ascorbic acid (vitamin C) 1,000 mg tablet 1 g PO QDAY RF: 0 losartan 25 mg tablet 25 mg PO QDAY RF: 0 metoprolol succinate 25 mg tablet extended release 24 hr 25 mg PO QDAY RF: 0 gabapentin 300 mg capsule 600 mg PO QHS RF: 0 sodium chloride-aloe vera nasal spray spray,non-aerosol 1 spray INTRANASAL Q1-4H PRN (Reason: Allergies) RF: 0 meloxicam 15 mg tablet 15 mg PO DAILY RF: 0 atorvastatin 80 MG tablet 80 mg PO QHS RF: 0 citalopram 10 MG tablet 10 mg PO DAILY RF: 0 clopidogrel 75 MG tablet 75 mg PO DAILY RF: 0 aspirin 81 MG tablet 81 mg PO DAILY@0800 RF: 0 nitroglycerin 0.4 MG tablet 0.4 mg SUBLINGUAL Q5M PRN (Reason: Chest Pain) RF: 0 cholecalciferol (vitamin D3) 1,000 UNIT capsule 1,000 unit PO DAILY RF: 0 isosorbide mononitrate 60 mg tablet extended release 24 hr 60 mg PO DAILY Qty: 90 RF: 3 ranolazine 500 mg tablet extended release 12 hr 500 mg PO BID Qty: 180 RF: 3 Primary Care Provider: Fred Cowart Referrals: Fred Cowart MD [Primary Care Provider] - Greg Newton MD [STAFF PHYSICIAN] - 3-5 Days Activity Restrictions/Additional Instructions: Follow-up suture removal also in 10-14 days. Disposition Disposition: Home, Self Care
[2021-05-27] MEDS: Diphth,Pertuss(Acell),Tet Vac 0.5 ML Vial IM (10:47)
[2021-05-27] MEDS: Lidocaine 1% (20 ml mdv) 20 ML Vial INFILT (10:48)
[2021-05-27] MEDS: Bupivacaine Mpf 0.5% 30 ML VIAL INFILT (10:48)
[2021-05-27 11:37] VITALS: RESP 16
[2021-05-27] MEDS: Cephalexin 250 MG Capsule 500 MG PO (11:49)
== END 2021-05-27 12:49 | disposition home or self-care (01) ==
PROVIDERS: Emergency Provider Emergency Medicine; PCP Family Medicine; Visit Provider Emergency Medicine
DX: S62.633B Displaced fracture of distal phalanx of left middle finger, initial encounter for open fracture (principal); S67.193A Crushing injury of left middle finger, initial encounter; S60.132A Contusion of left middle finger with damage to nail, initial encounter; X58.XXXA Exposure to other specified factors, initial encounter; Y93.9 Activity, unspecified; Y92.9 Unspecified place or not applicable; F32.A Depression, unspecified; F41.9 Anxiety disorder, unspecified; I25.10 Atherosclerotic heart disease of native coronary artery without angina pectoris; K21.9 Gastro-esophageal reflux disease without esophagitis; E78.5 Hyperlipidemia, unspecified; G47.33 Obstructive sleep apnea (adult) (pediatric); E66.9 Obesity, unspecified; Z79.82 Long term (current) use of aspirin; Z79.899 Other long term (current) drug therapy; Z95.1 Presence of aortocoronary bypass graft; Z87.891 Personal history of nicotine dependence
CPT/HCPCS: 12041; 73130; 90715; 96372; 99283

== ENCOUNTER → 2021-12-18 | Outpatient (CLI) | payer MEDICARE, OTHER, SELFPAY ==
[2021-12-18 09:37] LABS: AST(SGOT) 31 U/L (15-37); Alanine Aminotransfer ALT/SGPT 59 U/L (16-61); Albumin, Serum 3.6 g/dL (3.2-5.0); Alkaline Phosphatase 72 U/L (45-117); Bilirubin, Direct 0.26 mg/dL (0.00-0.30); Cholesterol 115 mg/dL (200); Globulin 3.5 g/dL (2.2-4.2); High Density Lipoprotein 53 mg/dL; Protein, Total 7.1 g/dL (6.4-8.2); Triglycerides 106 mg/dL; Very Low Density Lipoprotein 21 mg/dL (5-40)
== END | disposition home or self-care (01) ==
LOC: LAB 08:11
PROVIDERS: PCP Family Medicine; Referring Provider Physician Assistant Medical; Visit Provider Physician Assistant Medical
DX: E78.5 Hyperlipidemia, unspecified (principal)
CPT/HCPCS: 36415; 80061; 80076

== ENCOUNTER → 2022-02-05 | Outpatient (CLI) | payer MEDICARE, OTHER, SELFPAY ==
--- NOTE | 2022-02-05 13:30 | CT_ITS ---
STUDY: LEFT SHOULDER CT WITHOUT CONTRAST. REASON FOR EXAM: Male, 71 years old. PAIN/PER OP RADIATION DOSAGE (If Supplied By Facility): CTDIvol = ( 44.29 ) mGy, DLP = ( 1483.14 ) mGycm. Individualized dose optimization techniques were used for this CT.? TECHNIQUE: Contiguous axial images of the left shoulder were obtained without contrast. Coronal and sagittal reconstruction and bone and soft tissue algorithm images were provided for interpretation. COMPARISON: None. FINDINGS: Osteopenia. Superior migration of the humeral head which is compatible with rotator cuff degeneration. Mild arthrosis of the glenohumeral joint. Moderate arthrosis of the AC joint with hypertrophic changes. Incidentally noted is moderate to marked lower cervical spondylosis. CT/Extremity Upper without Contra IMPRESSION: Osteopenia with arthrosis of the glenohumeral and acromioclavicular joints. Superior migration of the humeral head which may be secondary to rotator cuff degeneration. Moderate to marked lower cervical spondylosis. No other abnormality. Electronically Signed: Bandar Liao, at 10:45 EDT ,
== END | disposition home or self-care (01) ==
LOC: CT 13:03
PROVIDERS: PCP Family Medicine; Visit Provider Student in an Organized Health Care Education/Training Program
DX: M19.012 Primary osteoarthritis, left shoulder (principal); M25.512 Pain in left shoulder
CPT/HCPCS: 73200

== ENCOUNTER 2022-04-30 09:12 | Observation (INO) | payer MEDICARE, OTHER, SELFPAY ==
--- NOTE | 2022-04-15 09:17 | EKG12_ITS ---
Test Reason : PRE-OP Blood Pressure : / mmHG Vent. Rate : 066 BPM Atrial Rate : 066 BPM P-R Int : 148 ms QRS Dur : 146 ms QT Int : 460 ms P-R-T Axes : 012 266 -18 degrees QTc Int : 482 ms Normal sinus rhythm Right bundle branch block Abnormal ECG Confirmed by MERVIN SALAZAR, PERLITA ([id number]), editorial cartoonist AZALIA JAMIL ([id number]) on 04/15/2022 10:59:26 AM Referred By: Pk Bass Confirmed By:PERLITA JEFFRIES MD
--- NOTE | 2022-04-15 09:22 | RAD_ITS ---
STUDY: X-RAY CHEST REASON FOR EXAM: Male, 71 years old. Chest pain/pressure TECHNIQUE: PA and lateral views of the chest. COMPARISON: 12/15/2020 FINDINGS: The lungs are clear and expanded. There is no demonstrated pleural abnormality. Sternal cerclage wires and vascular clips are present from a prior sternotomy and coronary artery bypass graft procedure (CABG). Normal mediastinum and laron. Normal visualized pulmonary arteries. Normal visualized aortic arch and descending thoracic aorta. Normal visualized thoracic spine. Normal visualized ribs, clavicles, and shoulders. There is no demonstrated abnormality of the visualized soft tissue structures of the upper abdomen. RAD/Chest PA and Lateral IMPRESSION: No acute pulmonary process Electronically Signed: Albin Ewing MD at 12:36 EST ,
[2022-04-15 10:50] LABS: Hematocrit 50.4 % (40-54); Hemoglobin 16.7 g/dL (13.0-16.5); Mean Corp Hgb Conc 33.1 g/dL (32-36); Mean Corpuscular Hgb 31.9 pg (27.0-32.0); Mean Corpuscular Volume 96.4 fL (80-94); Mean Platelet Vol. 11.2 fl (6.2-12.0); Platelet Count 261 K/mm3 (150-450); RBC Distribution Width CV 14.7 % (11.6-14.6); RBC Distribution Width SD 52.7 fl (35.1-43.9); Red Blood Count 5.23 M/mm3 (4.6-6.2); White Blood Count 6.4 K/mm3 (4.4-11.0)
[2022-04-15 11:18] LABS: Anion Gap 7 (5-15); BUN 20 mg/dL (7-18); BUN/Creat Ratio 19.4 RATIO (10-20); Calcium,Total 9.2 mg/dL (8.5-10.1); Chloride 107 mmol/L (98-107); Creatinine, Serum 1.03 mg/dL (0.70-1.30); EST Glomerular Filtration Rate 76 mL/min (>60); Est Glom Filt Rate - Afr Amer 92 mL/min (>60); Glucose 112 mg/dL (74-106); Magnesium 2.4 mg/dL (1.6-2.6); Potassium 4.1 mmol/L (3.5-5.1); Sodium Level 139 mmol/L (136-145)
[2022-04-30] VITALS (14 sets, daily range): BP systolic 101–161; BP diastolic 64–93; PULSE 58–88; RESP 17–18; TEMP 36.2–37.2; O2SAT 94–98; BMI 42.9
[2022-04-30] MEDS: Lactated Ringers 1,000 ML 15 ML IV ×2 (05:04→08:50)
[2022-04-30] MEDS: Magnesium 1 GM over 15 mins IV (05:50)
[2022-04-30] MEDS: Celecoxib 200 MG Capsule 400 MG PO (06:06)
[2022-04-30] MEDS: Gabapentin 600 MG Tablet PO (06:07)
[2022-04-30] MEDS: Acetaminophen 500 MG Tablet 1000 MG PO ×3 (06:07→21:32)
[2022-04-30 06:50] LABS: Bedside Glucose 123 mg/dL (74-106)
--- NOTE | 2022-04-30 07:30 | SHO_PTH ---
PATIENT: KATE AVILA LOC: MS3 U#:[id number] AGE/SX: 71/M [place] [facility] [place]: Dr. Pk Bass DO : 1950 BED: 1 DIS: 05/01/2022 SPEC #: [id number] RECD: 04/30/22 10:29 STATUS: BLAYNE RERemi #: [id number] EVIN: 04/30/22 07:[address]: Pk Bass DEPT: SURGICAL PATHOLOGY RECD BY: Rojelio Montano ENTERED: 04/30/22 10:54 SP TYPE: HUMERUS OTHR DR: MD Dr. Fred Wong MD Tissues: Humerus, NOS Procedures: Decalcification bone/plaque Surgery Specimen Level IV HEADER OPERATION: ERAS, total shoulder replacement PRE-OP DIAGNOSIS: Strain of muscles and tendon of rotator cuff of left shoulder, primary osteoarthritis left shoulder TISSUE SUBMITTED: Bone ? left shoulder MICROSCOPIC DIAGNOSIS Bone of left shoulder, total joint replacement: Degenerative changes of bone are present. Trilineage hematopoiesis. DOMENICO:osmin 05/05/2022 MICROSCOPIC DESCRIPTION Slides are reviewed. GROSS DESCRIPTION Received is one container labeled with the patient's name and designated bone left shoulder. The specimen consists of a humeral head measuring 5 x 5 x 2.5 cm. The articular surface shows areas of erosion, eburnation and osteophyte formation. No soft tissue is identified. Bi Developer sections are submitted in one cassette after decalcification. / ALESHIA:osmin 04/30/2022 TC:5 CPT: 86712, 30642
[2022-04-30] MEDS: Sugammadex Sodium 200 MG/2 ML VIAL IV (09:27)
--- NOTE | 2022-04-30 09:28 | OP.PCM_ITS ---
Report of Operation Date of Procedure: 04/30/22 Description of Surgical Findings:: Preoperative diagnosis: Left shoulder massive rotator cuff tear Postoperative diagnosis: Left shoulder massive rotator cuff tear Procedure: Left reverse total shoulder arthroplasty Surgeon: Pk Bass DO Senior Net Software Developer: STEVE Meyer Anesthesia: General endotracheal with interscalene block Supervisor Frame Sample And Pattern: Juancho White CRNA Complications: None apparent Drains: None Estimated blood loss: 150 cc Urinary output: None IV fluids: 1500 cc crystalloid Specimens: Left proximal humerus resection Surgical implants: Tornier Aequalis PerFORM+ baseplate 29 mm +6 mm offset, standard glenosphere cobalt chrome 39 mm diameter, Tornier perform inlay stem size #3, +3 size number 3 39 mm diameter polyethylene insert, 35 mm central screw. Peripheral screws x4 Surgical indications: This is 71-year-old male seen in the outpatient setting for left shoulder pain and weakness. MRI was obtained and demonstrated a massive left rotator cuff tear. There was some early fatty atrophy of the rotator cuff. I did feel that the rotator cuff repair was reasonable to attempt but high risk of retear is acknowledged. Patient has significant coronary artery disease. I explained that arthroscopic repair of the rotator cuff may results in need for reverse shoulder arthroplasty in the future. Given the risk of surgery and anesthesia with his coronary artery disease, we jointly made a decision to proceed with reverse shoulder arthroplasty to avoid potential retear and another anesthetic event if a rotator cuff repair was attempted We obtained a preoperative CT scan for planning. The risks, benefits, alternatives the procedure was reviewed with the patient and he agreed to proceed. Risks included but were not limited to bleeding, infection, instability, loss of life or limb, risk of anesthesia, neurovascular injury, persistent pain, stiffness, prolonged immobilization, need for additional surgery, loosening of orthopedic hardware. He expressed understanding and wished to proceed with surgery. Surgical details: Patient arrived to [facility] morning of the procedure and was greeted by the same day surgery staff. Prior to his procedure, I greeted the patient in the preoperative holding area I identified the patient by name, record number, and date of . Informed consent was confirmed. The operative extremity was marked. All questions were answered to patient satisfaction. Patient was also seen by anesthesia staff. Interscalene block was administered by the anesthesia staff prior to the procedure. At time of his procedure, patient was brought to the operative suite and positioned supine on a standard table with a beachchair attachment. General anesthesia was induced after all bony prominences were well-padded. Endotracheal tube was placed. After adequate anesthesia and securing the tube, we prepared the patient to be positioned in the beachchair position. A well- padded header machine operator was applied. The nonoperative extremity was placed in a well arm lawrence. He was then brought into the beachchair position after we confirmed an appropriate blood pressure. We then spun the bed 45 degrees. The operative extremity was then prepared. In the butterfly wing of the bed was removed and a well-padded torso strap was applied to secure the patient to the bed. The operative extremity was now free. We then prepped and draped the left upper extremity in normal, sterile orthopedic fashion. We then performed a timeout with all parties in attendance in agreement with the side, site, and operation be performed. 3 g Ancef was administered prior to incision by anesthesia staff, as well as 1 g TXA IV. No concerns were voiced and we elected to proceed. I first marked a standard deltopectoral incision just lateral to the coracoid process in line with the long axis of the humerus. Skin was sharply incised with 10 blade scalpel. I then dissected bluntly through the subcutaneous layers and found the fat stripe between the deltoid and pectoralis major. The cephalic vein was then identified and protected. It was retracted laterally with the deltoid. I then bluntly dissected underneath the deltoid with a Wilson elevator. Austin retractor was placed. The upper 1 cm of the pectoralis major was released. I then identified the long head of the biceps tendon in the intertubercular groove. This was tenodesed in situ with #2 FiberWire. I then amputated the biceps proximal to the tenodesis site and followed the tendon to the supraglenoid tubercle where it was amputated. This identified the lesser and greater tuberosities. The supraspinatus was completely torn and retracted with an exposed greater tuberosity. I then performed a subscapularis peel while rotating the humerus externally. I tagged the subscapularis for possible repair later with a tagging suture. I then made a anatomic neck cut of the cartilaginous surface of the humeral head. Sizing plate for a size #3 stem was utilized to determine appropriate reaming size. A central pin was placed engaging the lateral cortex of the humerus. A size #3 reamer was used to ream the humeral metaphysis and prepare for the inlay stem. A canal finding reamer was utilized prior to sequential broaching to a size #3 short stem with excellent rotational and axial purchase in the humerus. I remove the broach handle left the size #[address] I then subluxed the humerus posterior to the glenoid. I then placed retractors around the posterior and anterior glenoid to expose the glenoid. Glenoid labrum was removed with Bovie cautery protecting the axillary nerve. We then used the custom guide from Lori to position our centering pin, exiting approximately 30 mm from the joint surface along the anterior scapula. Guide was removed and pin was analyzed and compared to preoperative planning. It appeared to be in appropriate position. I then proceeded to ream the face of the glenoid with a standard reamer. Inferior rim of the glenoid was removed with the reamer achieving a flat surface. Approximately 1 mm of cortical bone was removed in the central portion of the glenoid. We then removed the reamer and used the cannulated drill for the central screw. Pin was removed. Post and baseplate was assembled on the back table. We then inserted the baseplate and central screw the assembled baseplate to an appropriate depth and rotation of the wedge to sit flush with the prepared glenoid surface. A Glover was used to confirm depth. Cortical screws then were placed in the peripheral holes with good purchase. The baseplate had excellent purchase and the entire scapula would rotate with rotation of the baseplate. We then impacted the 39 mm glenosphere with a standard eccentricity and tightened the locking screw mechanism. We then removed retractors and turned our attention back to the humerus. I placed a standard + 3 polyethylene insert. I then reduced the shoulder. There was excellent range of motion and stability in all planes of motion. We s elected this as our final size. We removed trials from the humerus after final dislocation. I copiously irrigated the canal. Broach was placed on hand and then impacted to an appropriate depth. Final +3 mm polyethylene insert was placed. Final reduction was then performed. I then copiously irrigated the wound with sterile Betadine and normal saline solution. Hemostasis was excellent. The axillary nerve was visualized and appeared to be intact. The subscapularis was then identified with a tagging suture. Repair would have been likely under undue tension and likely failed. I elected to not perform a subscapularis repair. We then copiously irrigated the wound with sterile Betadine and normal saline solution. We reapproximated the interval with 0 Vicryl suture. Subcutaneous layers were reapproximated with 2 -0 Vicryl suture. Skin was finally running V- Loc 3-0 Monocryl suture and Dermabond. A sterile silver Mepilex dressing was applied. Patient was then placed in a simple sling. Patient tolerated procedure well without complication. He was positioned back in the supine position extubated in the operative suite. He was transferred to the [place] and subsequently to PACU in stable condition. Intraoperative medications: 3 g Ancef IV, 1 g TXA IV x2 Post Operative Plan: Weightbearing: Nonweightbearing left upper extremity, okay for pendulums. Range of motion of wrist elbow and hand as tolerated. Antibiotics: 3 g Ancef IV prior to incision, 24 hours IV antibiotics postoperatively DVT Prophylaxis: Restart home antiplatelet therapy with Plavix and aspirin restarting tomorrow Luna: None Dressing: Maintain silver dressing x7 days. Okay to shower dressing on started on day 4 X-Rays: 2 weeks postop in the office Pain Medication: Oxycodone Rx upon discharge Follow-up: 2 weeks post-operatively with me in the office
--- NOTE | 2022-04-30 09:43 | RAD_ITS ---
STUDY: X-RAY - LEFT SHOULDER REASON FOR EXAM: Male, 71 years old. post op -- AP and Lateral X-Ray of operative shoulder in PACU TECHNIQUE: 2 view(s) of the shoulder. COMPARISON: Chest x-ray dated April 15, 2022 FINDINGS: The humeral head has been resected and a newly placed prosthesis is present with its stem well seated within the proximal one third shaft. The humeral prosthesis proximal head articulating component demonstrates good alignment with the newly placed glenoid ball prosthesis. The glenoid prosthesis is anchored into the bone by several cancellous screws. Expected postoperative gas and soft tissue swelling noted around the shoulder joint. No occult fractures. Normal visualized pulmonary apex. Normal acromioclavicular joint. Normal acromion. Linear atelectasis and trace pleural effusion noted in the left lung base. RAD/Shoulder min 2 Views IMPRESSION: 1. Newly placed left shoulder hardware Electronically Signed: Ignacio Salomon MD at 10:06 EST ,
[2022-04-30 10:11] LABS: Bedside Glucose 152 mg/dL (74-106)
--- NOTE | 2022-04-30 16:12 | PCM.PN.HOSP ---
Subjective Subjective Mr. Agosto is a 71-year-old white male who was admitted electively to the hospital on 04/30/2022 for a left reverse total shoulder arthroplasty. He was diagnosed with a left shoulder massive rotator cuff tear and orthopedic surgery elected to proceed with a total shoulder arthroplasty. We have been consulted postoperatively for chronic medical issues. The patient was evaluated postoperatively on the medical floor. Patient states he is feeling well at this time. Currently sitting up in chair nursing at bedside. No pain as he had a block. Reports his plan is to go home tomorrow. Objective Data Objective Data Vital Signs: Vital Signs Temp Pulse Resp BP Pulse Ox O2 Del Method O2 Flow Rate 98.9 F 68 18 112/64 95 Room Air 2 04/30/22 14:14 04/30/22 14:14 04/30/22 14:14 04/30/22 14:14 04/30/22 15:44 04/30/22 14:14 04/30/22 12:14 Oxygen Flow Rate (L/min) 2 Oxygen Delivery Method Room Air Weight: 135.624 kg Body Mass Index (BMI) 42.9 Intake & Output: Intake and Output for Last 24 Hours 04/28/22 04/29/22 04/30/22 23:59 23:59 23:59 Intake Total 1217 / 1217 Balance 1217 / 1217 Lab / Micro Data Result Diagrams: 04/15/22 09:08 04/15/22 09:08 Labs: Laboratory Results - last 24 hr 04/30/22 05:50: POC Glucose 123 H 04/30/22 09:49: POC Glucose 152 H Micro: Microbiology 04/15/22 09:09 Swab (Method) Nasal Screen MRSA/MSSA - Final Radiography Diagnostic Testing: Radiology Impression Shoulder X-Ray 04/30/22 09:43 IMPRESSION: 1. Newly placed left shoulder hardware Electronically Signed: Ignacio Salomon MD at 10:06 EST , Physical Exam Const alert, oriented x3, no apparent distress, healthy appearing and well nourished Constitutional Narrative: White male sitting up in chair at the bedside, morbidly obese, nursing at bedside, patient appears comfortable, left upper extremity in sling HEENT head/scalp atraumatic and moist oral mucous membranes Head and Scalp: normocephalic Resp normal respiratory effort, no retractions, no use of accessory muscles and clear to auscultation bilaterally Resp Narrative: Diminished but clear Auscultation: Negative for crackles, rhonchi or wheezes Cardio regular rate, regular rhythm, S1 normal heart sound, S2 normal heart sound, no murmurs, no rub, no gallops and no clicks GI normal to inspection, nondistended, normoactive bowel sounds, soft to palpation and non-tender Extremity no clubbing, cyanosis or edema Extremity Narrative: Left upper extremity in sling, postop incision is clean dry Neuro oriented x3, moves all extremities and no focal motor deficits Speech: speech normal Psych affect normal Psych Narrative: Very pleasant Assessment & Plan Assessment/Plan (1) Left rotator cuff tear: PLAN: Plan Large left rotator cuff tear -Postop day 0 left reverse total shoulder arthroplasty -Pain management per primary service -Interscalene block performed -PT per primary service -Continue sling -Anticipate discharge in the next 24 hours CAD/hyperlipidemia/hypertension -CABG x4 - FIGUEROA to LAD, SVG to PDA, SVG to the Ramus, and SVG to the distal OM 09/28/12; PTCA/CLYDE in prox to mid Ramus Intermedius 10/22/10; PTCA of the instent restenosis of the pre existing stent in the prox small ramus intermedius, PTCA/CLYDE in prox large left CX 10/10/12; PTCA/CLYDE in the prox LAD 03/16/13 -Continue home aspirin when okay with orthopedic surgery -Continue home Ativan -Continue home Plavix when okay with orthopedic surgery -Continue isosorbide mononitrate -Continue home losartan -Continue home metoprolol -Continue home Ranexa -No current issues GERD -Patient currently any chronic for the -Monitor and consider as needed Mylanta if there are any issues BABS -CPAP if patient compliant DM-2 -Hold home metformin -Sliding scale -Accu-Cheks COPD -Continue home inhalers -Patient has quit smoking -As needed DuoNebs Depression/anxiety -Continue home hydroxyzine -Continue home citalopram Morbid obesity -BMI 42.9 -Recommend weight loss -Complicates treatment, prognosis, outcomes DVT prophylaxis -Per primary service Charges/Coding Visit Charges OBSV E&M: 08363 Subsequent observation care L2
[2022-04-30] MEDS: Cefazolin 1 GM/50 ML BAG IV ×2 (16:24→23:55)
[2022-04-30 17:41] LABS: Bedside Glucose 167 mg/dL (74-106)
[2022-04-30] MEDS: Gabapentin 300 MG Capsule 600 MG PO (21:31)
[2022-04-30] MEDS: oxyCODONE 5 MG Tablet PO (21:31)
[2022-04-30] MEDS: Ranolazine 500 MG Tablet PO (21:32)
[2022-04-30] MEDS: Senna/Docusate Sodium 1 Tablet 2 TABLET PO (21:32)
[2022-04-30] MEDS: Atorvastatin Calcium 80 MG Tablet PO (21:33)
[2022-04-30 22:36] LABS: Bedside Glucose 113 mg/dL (74-106)
[2022-04-30] MEDS: 0.9% NaCl Peripheral Flush Adult/Peds IV (23:55)
[2022-05-01] MEDS: oxyCODONE 5 MG Tablet PO ×2 (03:02→07:07)
[2022-05-01 05:02] LABS: Hematocrit 43.5 % (40-54); Hemoglobin 14.3 g/dL (13.0-16.5); Mean Corp Hgb Conc 32.9 g/dL (32-36); Mean Corpuscular Hgb 31.9 pg (27.0-32.0); Mean Corpuscular Volume 97.1 fL (80-94); Mean Platelet Vol. 11.4 fl (6.2-12.0); Platelet Count 214 K/mm3 (150-450); RBC Distribution Width CV 14.8 % (11.6-14.6); RBC Distribution Width SD 53.5 fl (35.1-43.9); Red Blood Count 4.48 M/mm3 (4.6-6.2)
[2022-05-01 05:29] LABS: Anion Gap 8 (5-15); BUN 21 mg/dL (7-18); BUN/Creat Ratio 15.9 RATIO (10-20); Calcium,Total 8.6 mg/dL (8.5-10.1); Chloride 104 mmol/L (98-107); Creatinine, Serum 1.32 mg/dL (0.70-1.30); EST Glomerular Filtration Rate 57 mL/min (>60); Est Glom Filt Rate - Afr Amer 69 mL/min (>60); Estimated Creatinine Clearance 53.77 ml/min; Glucose 145 mg/dL (74-106); Potassium 4.2 mmol/L (3.5-5.1); Sodium Level 138 mmol/L (136-145)
[2022-05-01 06:49] VITALS: BP 140/81; PULSE 77; RESP 18; TEMP 36.7; O2SAT 95
[2022-05-01 06:53] VITALS: BMI 42.9
[2022-05-01] MEDS: Acetaminophen 500 MG Tablet 1000 MG PO (06:55)
[2022-05-01 07:25] LABS: Bedside Glucose 131 mg/dL (74-106)
--- NOTE | 2022-05-01 07:46 | DCINST_ITS ---
Discharge Instructions Follow Up Care Test Results: Test results from this visit will be discussed in further detail at your follow- up appointment, if applicable. Discharge Plan Admission Admit Date/Time: 04/30/22 09:12 Primary Reason for Your Visit: Left shoulder replacement Attending Provider: Pk Bass Primary Care Provider: Fred Cowart Consulting Providers: Hal Miranda ; Luisa Mas Instructions Additional Instructions / Restrictions: Follow preprinted instructions from your surgeons office Discharge Orders/Prescriptions Prescriptions: New meloxicam 7.5 mg Tablet 7.5 mg PO BID 28 Days Qty: 56 0RF famotidine 20 mg Tablet 20 mg PO DAILY 28 Days Qty: 28 0RF oxycodone 5 mg Tablet 5 - 10 mg PO Q4H PRN PRN (Reason: Pain Score 4-10) 7 Days Qty: 42 0RF Continued magnesium oxide 500 mg capsule 500 mg PO QDAY glucosamine sulfate 1,000 mg capsule 1,000 mg capsule 1,000 mg PO QDAY cyclobenzaprine 5 mg tablet 5 mg PO QDAY PRN (Reason: Pain 1-10 Or Fever) ascorbic acid (vitamin C) 1,000 mg tablet 1 g PO QDAY losartan 25 mg tablet 25 mg PO QDAY metoprolol succinate 25 mg tablet extended release 24 hr 25 mg PO QDAY gabapentin 300 mg capsule 600 mg PO QHS sodium chloride-aloe vera nasal spray spray,non-aerosol 1 spray INTRANASAL Q1-4H PRN (Reason: Allergies) meloxicam 15 mg tablet 15 mg PO DAILY tiotropium-olodaterol 2.5-2.5 mcg/actuation mist 2 puff inhalation DAILY isosorbide mononitrate 30 mg tablet extended release 24 hr 30 mg PO DAILY ranolazine 500 mg tablet extended release 12 hr 500 mg PO BID Qty: 180 3RF metformin 500 mg tablet extended release 24 hr 500 mg PO DAILY hydroxyzine pamoate 25 mg capsule 25 mg PO ONCE PRN (Reason: Anxiety) atorvastatin 80 MG tablet 80 mg PO QHS Label Comments: LOWERS CHOLESTEROL citalopram 10 MG tablet 10 mg PO DAILY Label Comments: MOOD/ANXIETY clopidogrel 75 MG tablet 75 mg PO DAILY Label Comments: PREVENT BLOOD CLOTS aspirin 81 MG tablet 81 mg PO DAILY@0800 Label Comments: HEART nitroglycerin 0.4 MG tablet 0.4 mg SUBLINGUAL Q5M PRN (Reason: Chest Pain) Label Comments: CHEST PAIN cholecalciferol (vitamin D3) 1,000 UNIT capsule 1,000 unit PO DAILY Label Comments: SUPPLEMENT Discontinued hydrocodone 5 mg-acetaminophen 500 mg tablet 5-500 mg tablet 1 tab PO QDAY PRN (Reason: Pain Score 1-10) Other Ambulatory Orders: 12 Lead EKG (Routine) Timeframe: [id number] Location: None Selected Ordered By: Dr. Hal Miranda Referrals / Follow Up: Fred Cowart MD [Primary Care Provider] - Disposition Disposition (needs filled in before D/C Order can be placed): Home, Self Care
--- NOTE | 2022-05-01 07:46 | PCM.PN.ORT ---
Subjective Subjective Patient seen and examined. Reports pain in his left shoulder controlled with current pain regimen. Tolerating oral intake without nausea or vomiting. Denies chest pain or shortness of breath, fevers or chills. Urinating without difficulty. Objective Data Objective Data Vital Signs: Vital Signs Temp Pulse Resp BP Pulse Ox O2 Del Method O2 Flow Rate 98.1 F 77 18 140/81 H 95 Room Air 2 05/01/22 06:49 05/01/22 06:49 05/01/22 06:49 05/01/22 06:49 05/01/22 06:49 05/01/22 06:49 04/30/22 12:14 Oxygen Flow Rate (L/min) 2 Oxygen Delivery Method Room Air Weight: 299 lb Body Mass Index (BMI) 42.9 Intake & Output: Intake and Output for Last 24 Hours 04/29/22 04/30/22 05/01/22 23:59 23:59 23:59 Intake Total 2619.5 / 2619.5 350 / 350 Balance 2619.5 / 2619.5 350 / 350 Lab / Micro Data Result Diagrams: 05/01/22 03:59 05/01/22 03:59 Labs: Laboratory Results - last 24 hr 04/30/22 09:49: POC Glucose 152 H 04/30/22 17:18: POC Glucose 167 H 04/30/22 22:18: POC Glucose 113 H 05/01/22 03:59: WBC 17.0 H, RBC 4.48 L, Hgb 14.3, Hct 43.5, MCV 97.1 H, MCH 31.9, MCHC 32.9, RDW Std Deviation 53.5 H, RDW Coeff of Eddi 14.8 H, Plt Count 214, MPV 11.4 05/01/22 03:59: Sodium 138, Potassium 4.2, Chloride 104, Carbon Dioxide 26.0, Anion Gap 8, BUN 21 H, Creatinine 1.32 H, Estim Creat Clear Calc 53.77, Est GFR (MDRD) Af Amer 69, Est GFR (MDRD) Non-Af 57 L, BUN/Creatinine Ratio 15.9, Glucose 145 H, Calcium 8.6 05/01/22 06:48: POC Glucose 131 H Micro: Microbiology 04/15/22 09:09 Swab (Method) Nasal Screen MRSA/MSSA - Final Radiography Diagnostic Testing: Radiology Impression Shoulder X-Ray 04/30/22 09:43 IMPRESSION: 1. Newly placed left shoulder hardware Electronically Signed: Ignacio Salomon MD at 10:06 EST Reading Location ID and State: [facility] / [place] , Service support , Physical Exam Narrative General - A&Ox3, NAD. VSS/AF. Left upper Extremity - SILT & 5/5 in radial, ulnar, musculocutaneous, axillary, and median nerve distributions. Radial, ulnar pulses 2+. Compartments soft and compressible. BCR in finger tips. Incisional dressing clean dry and intact. Cardinal motions left hand are intact. Sling in place. Negative Homans' sign bilaterally Assessment & Plan Assessment/Plan (1) Left rotator cuff tear: PLAN: POD#1 s/p left reverse total shoulder arthroplasty - Pain control - Medicine following for medical management - PT/OT - DVT PPX -restart home Plavix and aspirin, SCDs, MIREYA barton, early mobilization -Plan for discharge home today. - Case management - D/C planning
[2022-05-01 08:14] VITALS: BMI 42.9
[2022-05-01 08:34] VITALS: BP 149/88; PULSE 70; RESP 18; TEMP 36.8; O2SAT 94
[2022-05-01] MEDS: Citalopram 10 MG Tablet PO (08:40)
[2022-05-01] MEDS: Losartan Potassium 25 MG Tablet PO (08:40)
[2022-05-01] MEDS: Isosorbide Mononitrate 30 MG Tablet PO (08:40)
[2022-05-01] MEDS: Aspirin E.C. 81 MG Tablet PO (08:40)
[2022-05-01 08:41] VITALS: BP 149/88; PULSE 70
[2022-05-01] MEDS: Metoprolol(XL)Succ 25 MG Tablet PO (08:41)
[2022-05-01] MEDS: Ranolazine 500 MG Tablet PO (08:41)
[2022-05-01] MEDS: Clopidogrel Bisulfate 75 MG Tablet PO (08:41)
[2022-05-01] MEDS: Famotidine 20 MG Tablet PO (08:41)
[2022-05-01] MEDS: Senna/Docusate Sodium 1 Tablet 2 TABLET PO (08:41)
--- NOTE | 2022-05-01 09:10 | CASEMGMT ---
ZACK BRIAN Assessment: Face to Face with pt for initial transition planning/care coordination assessment. ZACK BRIAN introduced self and role at [facility], pt voices understanding and consents to assessment. Pt is A/O x4 and answers all questions appropriately at this time. Pt walking around in the room and stood for the assessment per his request. Care providers, pharmacy, and demographics verified/updated. Admitting Dx:L reverse total shoulder arthroplasty PCP:[facility] Specialists:Kali, ortho; Jacky, cardio Preferred Pharmacy: [facility] Retail Insurance: [facility], A[employer] Prescription Benefit: yes LNOK: Kelly Agosto, Living Arrangements: Pt lives with in a single story house with 3 steps to enter with a rail. Pt reports being I in ADL's and denies concerns at home. Transportation: Pt drives self and denies concerns with transportation. Pt will transport him to medical appts until he can drive. DME/HHC/SNF: Pt has canes, walkers and crutches at home but does not use. Pt has ordered an ice pack machine that will be delivered. Pt has had HHC in the past but is unsure of who provided it. Pt denies SNF stays. Pt states no concerns with going home at time of dc. Pt is going to be here in 10 minutes to pick him up and is anxious to go home. Pt states no further concerns/needs. CM to follow. Advised pt to ask CM if any further question/concerns/needs arise, voices understanding. Pt Goal: Home Plan: Home
--- NOTE | 2022-05-01 13:13 | DS.PCM_ITS ---
Providers Date of Admission: 04/30/22 Primary Care Physician: Dr. Fred Cowart MD Consultations 04/30/22 09:11 Consult: Hospitalist Routine Consulting Provider: Luisa Mas Reason for Consult: Post op left total shoulder, medical management EMERGENT Consult: No MD Notified: Yes Date Notified: 04/30/22 Time Notified: 12:18 Method of Notification: Verbal Reason For Visit: LEFT REVERSE TOTAL SHOULDER ARTHROPLASTY Diagnosis Discharge Diagnosis (1) Left rotator cuff tear: Status: Acute Code(s): M75.102 - Unspecified rotator cuff tear or rupture of left shoulder, not specified as traumatic Plan: POD#1 s/p left reverse total shoulder arthroplasty - Pain control - Medicine following for medical management - PT/OT - DVT PPX -restart home Plavix and aspirin, SCDs, MIREYA ifrahe, early mobilization -Plan for discharge home today. - Case management - D/C planning Medications at Discharge Home Medications aspirin 81 mg tablet,delayed release 81 mg PO DAILY@0800 07/15/13 atorvastatin 80 mg tablet 80 mg PO QHS 07/15/13 cholecalciferol (vitamin D3) 25 mcg (1,000 unit) capsule 1,000 unit PO DAILY 07/15/13 citalopram 10 mg tablet 10 mg PO DAILY 07/15/13 clopidogrel 75 mg tablet 75 mg PO DAILY 07/15/13 nitroglycerin 0.4 mg sublingual tablet 0.4 mg sublingual Q5M PRN Chest Pain 07/15/13 ascorbic acid (vitamin C) 1,000 mg tablet 1 g PO QDAY 07/16/17 losartan 25 mg tablet 25 mg PO QDAY 07/16/17 metoprolol succinate 25 mg tablet,extended release 24 hr 25 mg PO QDAY 07/16/17 cyclobenzaprine 5 mg tablet 5 mg PO QDAY PRN Pain 1-10 Or Fever 08/30/17 gabapentin 300 mg capsule 600 mg PO QHS 08/30/17 glucosamine sulfate 1,000 mg capsule 1,000 mg PO QDAY 08/30/17 magnesium oxide 500 mg capsule 500 mg PO QDAY 08/30/17 sodium chloride-aloe vera nasal spray ([place] Saline Gel nasal spray) 1 spray intranasal Q1-4H PRN Allergies 05/09/18 meloxicam 15 mg tablet 15 mg PO DAILY 03/19/21 isosorbide mononitrate 30 mg tablet,extended release 24 hr 30 mg PO DAILY 06/13/21 ranolazine 500 mg tablet,extended release,12 hr 500 mg PO BID #180 tabs 06/13/21 tiotropium 2.5 mcg-olodaterol 2.5 mcg/actuation mist for inhalation 2 puff inhalation DAILY 06/13/21 hydroxyzine pamoate 25 mg capsule 25 mg PO ONCE PRN Anxiety 12/16/21 metformin 500 mg tablet,extended release 24 hr 500 mg PO DAILY 12/16/21 famotidine 20 mg tablet 20 mg PO DAILY 28 days #28 tabs 05/01/22 meloxicam 7.5 mg tablet 7.5 mg PO BID 28 days #56 tabs 05/01/22 oxycodone 5 mg tablet 5 - 10 mg PO Q4H PRN PRN Pain Score 4-10 7 days #42 tabs 05/01/22 Hospital Course Summary of Care Provided Minutes Spent on Discharge: 15 Hospital Course: Patient underwent uncomplicated left reverse shoulder arthroplasty 04/30/2022. He was placed in observation for early convalescence and medical monitoring. Patient did well in the postoperative course. An internal medicine consult was placed. He worked well with physical occupational therapies. He was able be safely discharged to home on postoperative day #1. Physical Exam Narrative General - A&Ox3, NAD. VSS/AF. Left upper Extremity - SILT & 5/5 in radial, ulnar, musculocutaneous, axillary, and median nerve distributions. Radial, ulnar pulses 2+. Compartments soft and compressible. BCR in finger tips. Incisional dressing clean dry and intact. Cardinal motions left hand are intact. Sling in place. Negative Homans' sign bilaterally Weight / BMI Weight Weight: 299 lb Body Mass Index (BMI) 42.9 ABG / Lab / Microbiology Data Result Diagrams: 05/01/22 03:59 05/01/22 03:59 Laboratory: Laboratory Results - last 24 hr 04/30/22 17:18: POC Glucose 167 H 04/30/22 22:18: POC Glucose 113 H 05/01/22 03:59: WBC 17.0 H, RBC 4.48 L, Hgb 14.3, Hct 43.5, MCV 97.1 H, MCH 31.9, MCHC 32.9, RDW Std Deviation 53.5 H, RDW Coeff of Eddi 14.8 H, Plt Count 214, MPV 11.4 05/01/22 03:59: Sodium 138, Potassium 4.2, Chloride 104, Carbon Dioxide 26.0, Anion Gap 8, BUN 21 H, Creatinine 1.32 H, Estim Creat Clear Calc 53.77, Est GFR (MDRD) Af Amer 69, Est GFR (MDRD) Non-Af 57 L, BUN/Creatinine Ratio 15.9, Glucose 145 H, Calcium 8.6 05/01/22 06:48: POC Glucose 131 H Microbiology: Microbiology 04/15/22 09:09 Swab (Method) Nasal Screen MRSA/MSSA - Final Meaningful Use Info Meaningful Use Diagnoses (Choose all that apply): None applicable Discharge Plan Admission Admit Date/Time: 04/30/22 09:12 Primary Reason for Your Visit: Left shoulder replacement Attending Provider: Pk Bass Primary Care Provider: Fred Cowart Consulting Providers: Hal Miranda ; Luisa Mas Instructions Additional Instructions / Restrictions: Follow preprinted instructions from your surgeons office Discharge Orders/Prescriptions Prescriptions: New meloxicam 7.5 mg Tablet 7.5 mg PO BID 28 Days Qty: 56 0RF famotidine 20 mg Tablet 20 mg PO DAILY 28 Days Qty: 28 0RF oxycodone 5 mg Tablet 5 - 10 mg PO Q4H PRN PRN (Reason: Pain Score 4-10) 7 Days Qty: 42 0RF Continued magnesium oxide 500 mg capsule 500 mg PO QDAY glucosamine sulfate 1,000 mg capsule 1,000 mg capsule 1,000 mg PO QDAY cyclobenzaprine 5 mg tablet 5 mg PO QDAY PRN (Reason: Pain 1-10 Or Fever) ascorbic acid (vitamin C) 1,000 mg tablet 1 g PO QDAY losartan 25 mg tablet 25 mg PO QDAY metoprolol succinate 25 mg tablet extended release 24 hr 25 mg PO QDAY gabapentin 300 mg capsule 600 mg PO QHS sodium chloride-aloe vera nasal spray spray,non-aerosol 1 spray INTRANASAL Q1-4H PRN (Reason: Allergies) meloxicam 15 mg tablet 15 mg PO DAILY tiotropium-olodaterol 2.5-2.5 mcg/actuation mist 2 puff inhalation DAILY isosorbide mononitrate 30 mg tablet extended release 24 hr 30 mg PO DAILY ranolazine 500 mg tablet extended release 12 hr 500 mg PO BID Qty: 180 3RF metformin 500 mg tablet extended release 24 hr 500 mg PO DAILY hydroxyzine pamoate 25 mg capsule 25 mg PO ONCE PRN (Reason: Anxiety) atorvastatin 80 MG tablet 80 mg PO QHS Label Comments: LOWERS CHOLESTEROL citalopram 10 MG tablet 10 mg PO DAILY Label Comments: MOOD/ANXIETY clopidogrel 75 MG tablet 75 mg PO DAILY Label Comments: PREVENT BLOOD CLOTS aspirin 81 MG tablet 81 mg PO DAILY@0800 Label Comments: HEART nitroglycerin 0.4 MG tablet 0.4 mg SUBLINGUAL Q5M PRN (Reason: Chest Pain) Label Comments: CHEST PAIN cholecalciferol (vitamin D3) 1,000 UNIT capsule 1,000 unit PO DAILY Label Comments: SUPPLEMENT Discontinued hydrocodone 5 mg-acetaminophen 500 mg tablet 5-500 mg tablet 1 tab PO QDAY PRN (Reason: Pain Score 1-10) Other Ambulatory Orders: 12 Lead EKG (Routine) Timeframe: [id number] Location: None Selected Ordered By: Dr. Hal Miranda Referrals / Follow Up: Fred Cowart MD [Primary Care Provider] - Disposition Disposition (needs filled in before D/C Order can be placed): Home, Self Care
== END 2022-05-01 09:17 | disposition home or self-care (01) ==
LOC: SDC 10:29 → MS3 10:29
PROVIDERS: Anesthesiology; Admitting Provider Student in an Organized Health Care Education/Training Program; PCP Family Medicine; Referring Provider Student in an Organized Health Care Education/Training Program; Visit Provider Student in an Organized Health Care Education/Training Program
PROC: (CPT 23472; principal; 2022-04-30 07:00)
DX: S46.012A Strain of muscle(s) and tendon(s) of the rotator cuff of left shoulder, initial encounter (principal); E66.01 Morbid (severe) obesity due to excess calories; Z68.41 Body mass index [BMI] 40.0-44.9, adult; I25.10 Atherosclerotic heart disease of native coronary artery without angina pectoris; I10 Essential (primary) hypertension; I25.2 Old myocardial infarction; E78.00 Pure hypercholesterolemia, unspecified; M19.012 Primary osteoarthritis, left shoulder; G47.30 Sleep apnea, unspecified; Z86.16 Personal history of COVID-19; Z87.891 Personal history of nicotine dependence; Z79.899 Other long term (current) drug therapy; Z79.02 Long term (current) use of antithrombotics/antiplatelets; Z79.82 Long term (current) use of aspirin; Z79.84 Long term (current) use of oral hypoglycemic drugs; Z95.1 Presence of aortocoronary bypass graft; R73.03 Prediabetes; X58.XXXA Exposure to other specified factors, initial encounter
CPT/HCPCS: 23472; 01638; 64415; 36415; 71046; 73030; 80048; 82962; 83036; 83735; 85027; 87081; 88305; 88311; 93005; 96365; 96366; 97110; 97166; 97535; 99221; 99251; 99252; C1776; J7120; A4216; G0378; G0463; J2405; J3475

== ENCOUNTER 2022-05-06 15:08 | Emergency (ER) | payer MEDICARE, OTHER, SELFPAY ==
[2022-05-06] VITALS (10 sets, daily range): BP systolic 123–220; BP diastolic 82–127; PULSE 65–73; RESP 14–20; TEMP 36.6; O2SAT 95–99; BMI 43.0
--- NOTE | 2022-05-06 15:42 | RAD_ITS ---
EXAM: XR LEFT SHOULDER COMPLETE, 2 OR MORE VIEWS CLINICAL INDICATION: dislocated left shoulder prosthesis, surgery 04/30/22 TECHNIQUE: Two or more views of the left shoulder. This report was created using [employer] report generation technology. COMPARISON: 04/30/2022 FINDINGS: BONES/JOINTS: There is a total left shoulder prosthesis with the humeral component anteriorly dislocated from the glenoid component. No fractures are identified. No sclerotic or destructive changes observed. SOFT TISSUES: Unremarkable. No soft tissue swelling or gas. No radiopaque foreign body. RAD/Shoulder min 2 Views IMPRESSION: Anterior dislocation of a left shoulder prosthesis. Electronically Signed: Kirk Sofia MD at 17:12 EST ,
--- NOTE | 2022-05-06 15:44 | EX.ED.UPPERE ---
HPI History of Present Illness HPI Narrative: 71-year-old male reported dislocated left shoulder. Chief Complaint: Upper Extremity Injury Occured/Mechanism Mechanism/Context: Yes injury Onset/Context/Timing Onset: Days Context: Sudden Onset Timing: Continuous Quality of Pain: Dull and Aching Current Severity: Mild Maximum Severity: Moderate Associated Symptoms Associated Symptoms: Negative for Parasthesia, Weakness or Loss of Funtion Narrative Narrative: 71-year-old male history of CAD, CABG and stents. Late April had a left shoulder replacement done. He states that he been doing well. About 5 to 7 days ago he was opening a pill bottle and he felt a pop in the shoulder. It did not feel right. Several days later he went and saw his orthopedic surgeon yesterday in the office reportedly they did x-rays and it was dislocated. They were unable to reduce it. They sent him in the ER to have it reduced today. He denies any fall or injury. Denies any other complaints. Prior similar symptoms: No Recent Illness/Hospitalization: Yes [facility]SH [facility] Medical History Alcohol use Anxiety Anxiety and depression Arthritis Atherosclerosis of coronary artery bypass graft without angina pectoris Cardiology follow-up encounter COPD (chronic obstructive pulmonary disease) CPAP (continuous positive airway pressure) dependence Daytime somnolence Diabetes Essential hypertension Former smoker GERD (gastroesophageal reflux disease) High cholesterol History of echocardiogram History of renal disease History of steroid therapy History of stress test Hyperlipidemia Obesity (BMI 30.0-34.9) BABS (obstructive sleep apnea) Restless legs Shortness of breath on exertion Sleep apnea Snoring Wears glasses Wears hearing aid Home Medications aspirin 81 mg tablet,delayed release 81 mg PO DAILY@0800 07/15/13 [History Last Taken 04/29/22] atorvastatin 80 mg tablet 80 mg PO QHS 07/15/13 [History Last Taken 07/14/13 2100] cholecalciferol (vitamin D3) 25 mcg (1,000 unit) capsule 1,000 unit PO DAILY 07/15/13 [History Last Taken 07/14/13 0800] citalopram 10 mg tablet 10 mg PO DAILY 07/15/13 [History Last Taken 09/05/13 09:30] clopidogrel 75 mg tablet 75 mg PO DAILY 07/15/13 [History Last Taken 04/25/22] nitroglycerin 0.4 mg sublingual tablet 0.4 mg sublingual Q5M PRN Chest Pain 07/15/13 [History Last Taken 07/15/13 0400] ascorbic acid (vitamin C) 1,000 mg tablet 1 g PO QDAY 07/16/17 [History Last Taken Unknown] losartan 25 mg tablet 25 mg PO QDAY 07/16/17 [History Last Taken 04/30/22] metoprolol succinate 25 mg tablet,extended release 24 hr 25 mg PO QDAY 07/16/17 [History Last Taken 04/30/22] cyclobenzaprine 5 mg tablet 5 mg PO QDAY PRN Pain 1-10 Or Fever 08/30/17 [History Last Taken Unknown] gabapentin 300 mg capsule 600 mg PO QHS 08/30/17 [History Last Taken Unknown] glucosamine sulfate 1,000 mg capsule 1,000 mg PO QDAY 08/30/17 [History Last Taken Unknown] magnesium oxide 500 mg capsule 500 mg PO QDAY 08/30/17 [History Last Taken Unknown] sodium chloride-aloe vera nasal spray (Hopkins Saline Gel nasal spray) 1 spray intranasal Q1-4H PRN Allergies 05/09/18 [History Last Taken Unknown] meloxicam 15 mg tablet 15 mg PO DAILY 03/19/21 [History Last Taken Unknown] isosorbide mononitrate 30 mg tablet,extended release 24 hr 30 mg PO DAILY 06/13/21 [History Last Taken 04/30/22] ranolazine 500 mg tablet,extended release,12 hr 500 mg PO BID #180 tabs 06/13/21 [Rx Last Taken Unknown] tiotropium 2.5 mcg-olodaterol 2.5 mcg/actuation mist for inhalation 2 puff inhalation DAILY 06/13/21 [History Last Taken Unknown] hydroxyzine pamoate 25 mg capsule 25 mg PO ONCE PRN Anxiety 12/16/21 [History Last Taken Unknown] metformin 500 mg tablet,extended release 24 hr 500 mg PO DAILY 12/16/21 [History Last Taken Unknown] famotidine 20 mg tablet 20 mg PO DAILY 28 days #28 tabs 05/01/22 [Rx Last Taken Unknown] meloxicam 7.5 mg tablet 7.5 mg PO BID 28 days #56 tabs 05/01/22 [Rx Last Taken Unknown] oxycodone 5 mg tablet 5 - 10 mg PO Q4H PRN PRN Pain Score 4-10 7 days #42 tabs 05/01/22 [Rx Last Taken Unknown] Allergy/AdvReac Type Severity Reaction Status Date / Time No Known Allergies Allergy Verified 05/06/22 15:09 Family History Father CAD (coronary artery disease) Hypertension Myocardial infarction Hx of CABG Surgical History History of cataract extraction History of heart surgery History of hernia repair History of laminectomy History of tonsillectomy Postsurgical percutaneous transluminal coronary angioplasty (PTCA) status Presence of aortocoronary bypass graft (~09/28/12) Presence of stent in coronary artery (~03/16/13) Social History Smoking Status: Former smoker how long ago did patient quit smokin years ago alcohol intake: current alcohol intake frequency: a few times a week Alcohol type: beer and hard liquor details: occasional beer substance use type: does not use caffeine: Yes Type: coffee Number of servings: 2 ROS ROS ED ROS Narrative Denies recent illness. Review of Systems ROS Unobtainable: Denies due to encephalopathy Constitutional Constitutional ED: Denies chills or fever(s) Eyes Eyes: Denies blurry vision ENT ENT ED: Denies ear pain Cardiovascular Cardiovascular: Denies chest pain Respiratory/Chest Respiratory/Chest: Denies cough or dyspnea Gastrointestinal Gastrointestinal: Denies abdominal pain Genitourinary Genitourinary ED: Denies dysuria Musculoskeletal Musculoskeletal: Denies back pain Integumentary Denies abscess or Abrasions Neurologic Neurologic: Denies headache(s) Psychiatric Psychiatric: Denies anxiety Endocrine Endocrinology: Denies cold intolerance Hematologic/Lymphatic Hematologic/Lymphatic: Denies easy bleeding or easy bruising Allergic/Immunologic Allergic/Immunologic ED: Denies mouth swelling or tongue swelling EXAM Physical Exam Narrative Exam Narrative: 71-year-old male. Vital signs stable afebrile. No distress. Left arm is in a orthopedic sling. Evaluate the patient in the triage room. H EENT exam unremarkable atraumatic. Lungs clear. Heart regular rhythm rate about 70 no murmur. Chest wall nontender. Abdomen soft nontender. He can move all 4 extremities. He has limited range of motion left shoulder and also discomfort when he attempts to do range of motion left shoulder. He has greatly limited AB and adduction. He has normal strength and sensation in his left hand. 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 Normal radial pulse. The wrist hand and elbow are nontender. He has a well-healing left anterior axilla shoulder surgical incision healing. No signs of infection. Clean and dry. Neurologically is awake and alert. No focal motor deficits. Const Vital Signs: 05/06/22 15:09 Temperature 97.9 F Temperature Source Temporal Pulse Rate 70 Respiratory Rate 14 Blood Pressure 167/97 H Blood Pressure Mean 120 Pulse Ox 95 Oxygen Delivery Method Room Air Positive well nourished, well developed and obese; Negative for cachectic, contractures or unkempt General Appearance ED: well developed and NAD; Negative for unkempt, cachectic, contractures, cyanotic or diaphoretic Nutritional Appearance: obese; Negative for cachectic HEENT Reports moist mucous membranes normocephalic and atraumatic; Negative for trauma or tenderness Eyes PERRL and EOMs intact bilaterally General Eye ED: Negative for other Neck full ROM and supple General: Negative for tenderness Lymph Lymphatic: Negative for other Chest Wall inspection of chest normal and palpation of chest normal Chest: Negative for other Resp normal respiratory effort and clear to auscultation bilaterally Effort and Inspection: Negative for pain with movement Auscultation: Negative for rales, rhonchi or wheezes Cardio regular rate, regular rhythm, S1 normal heart sound, S2 normal heart sound and no murmurs GI non-distended and no masses Inspection: Negative for abdominal distention Auscultation: normoactive bowel sounds Palpation: soft; Negative for tender or guarding Back/Spine no CVA tenderness General Back: Negative for CVA tenderness Cervical Spine: Negative for cervical spine tenderness Thoracic Spine / Upper Back: Negative for thoracic spinal tenderness Extremity normal to inspection and full ROM Extremity Narrative: Except left shoulder. Limited range of motion. Well-healing shoulder surgery incision anteriorly. Dry and clean. Pain with passive and active range of motion left shoulder. Very limited. Left elbow, forearm, wrist and hand neurovascular intact. 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 Normal sensation. Normal radial pulse. Neuro oriented x3, moves all extremities and no focal motor deficits Sensorium / Orientation: alert, oriented to person, oriented to place and oriented to time; Negative for orientation impaired, lethargic or stuporous Motor Exam: strength 5/5 throughout Psych Appearance: Negative for unkempt Attitude: No agitated Mood & Affect: Negative for depressed, anxious or tearful Skin General Skin Exam: Negative for petechiae Lesions: no lesions Rashes: no rashes Trauma: no lacerations or abrasions MDM MDM MDM Narrative Medical decision making narrative: 71-year-old male reportedly has a left dislocated shoulder prosthesis that had surgery in late April. X-ray to be obtained. He will be consciously sedated and reduced. Left shoulder x-ray shows an anterior left shoulder dislocation. Patient was consented and consciously sedated using IV propofol. Initially got 70 mg then 50 and another 50. The entire time he was resisting reduction. I was unable to get any significant movement of the left shoulder prosthesis. Clinically it remains out of place. There is a deficit in the shoulder joint. I discussed with his orthopedic physician Dr. Bass and he will be in the ER and will attempt to do this again with me providing conscious sedation and him doing the reduction. Patient did also receive 50 mg of IV fentanyl on the initial attempt. Radiography Diagnostic Testing: Left shoulder x-ray, 2 views, interpreted by myself shows an anterior left shoulder dislocated prosthesis. No fracture noted. Procedures Procedural Sedation Patient has left anterior shoulder dislocation of her prosthetic shoulder joint. He was consented for conscious sedation and shoulder reduction. Given propofol a total of 170 mg. We were unable to reduce the shoulder. The entire time he was resisting. He was also given IV fentanyl for pain control.: Consent Signed: Yes Any Problems With Anesthesia: No You/Your family experience fever (hyperthermia) w/anesthesia: No Sedation medication: Propofol (Total of 170 mg. Initially 70 mg, second dose of 50 mg and a third dose of 50 mg.) Dose: 170 Route: IV Total Moderate Sedation Units: 10 Comment:: The initial reduction was unsuccessful. Dr. Bass came in I then sedated the patient with etomidate 7 mg. Conscious sedation was about 10 minutes a second time also. We got good conscious sedation. Both Dr. Bass and myself with him pulling traction and a applying force to the shoulder prosthesis it was able to be reduced. X-ray showed a successful reduction. Patient is doing well. He is awake alert. He will be watched in the emergency department and discharged home. He will follow-up with Dr. Bass next week. Discharge Plan Triage Chief Complaint: Upper Extremity Injury ED Provider: Mino Lamas Dx/Rx/DC Orders Clinical Impression: Anterior dislocation of left shoulder, Presence of stent in coronary artery, Obesity (BMI 30.0-34.9), History of CAD (coronary artery disease) Instructions: ED Dislocation: Shoulder (Reduced) Prescriptions: No Action magnesium oxide 500 mg capsule 500 mg PO QDAY glucosamine sulfate 1,000 mg capsule 1,000 mg capsule 1,000 mg PO QDAY cyclobenzaprine 5 mg tablet 5 mg PO QDAY PRN (Reason: Pain 1-10 Or Fever) ascorbic acid (vitamin C) 1,000 mg tablet 1 g PO QDAY losartan 25 mg tablet 25 mg PO QDAY metoprolol succinate 25 mg tablet extended release 24 hr 25 mg PO QDAY gabapentin 300 mg capsule 600 mg PO QHS sodium chloride-aloe vera nasal spray spray,non-aerosol 1 spray INTRANASAL Q1-4H PRN (Reason: Allergies) meloxicam 15 mg tablet 15 mg PO DAILY tiotropium-olodaterol 2.5-2.5 mcg/actuation mist 2 puff inhalation DAILY isosorbide mononitrate 30 mg tablet extended release 24 hr 30 mg PO DAILY ranolazine 500 mg tablet extended release 12 hr 500 mg PO BID Qty: 180 3RF metformin 500 mg tablet extended release 24 hr 500 mg PO DAILY hydroxyzine pamoate 25 mg capsule 25 mg PO ONCE PRN (Reason: Anxiety) atorvastatin 80 MG tablet 80 mg PO QHS Label Comments: LOWERS CHOLESTEROL citalopram 10 MG tablet 10 mg PO DAILY Label Comments: MOOD/ANXIETY clopidogrel 75 MG tablet 75 mg PO DAILY Label Comments: PREVENT BLOOD CLOTS aspirin 81 MG tablet 81 mg PO DAILY@0800 Label Comments: HEART nitroglycerin 0.4 MG tablet 0.4 mg SUBLINGUAL Q5M PRN (Reason: Chest Pain) Label Comments: CHEST PAIN cholecalciferol (vitamin D3) 1,000 UNIT capsule 1,000 unit PO DAILY Label Comments: SUPPLEMENT meloxicam 7.5 mg Tablet 7.5 mg PO BID 28 Days Qty: 56 0RF famotidine 20 mg Tablet 20 mg PO DAILY 28 Days Qty: 28 0RF oxycodone 5 mg Tablet 5 - 10 mg PO Q4H PRN PRN (Reason: Pain Score 4-10) 7 Days Qty: 42 0RF Primary Care Provider: Fred Cowart Referrals: Fred Cowart MD [Primary Care Provider] - Pk Bass DO [Med Staff - Active Staff] - Keep Marilu appointment Activity Restrictions/Additional Instructions: Call and follow-up with your orthopedic physician Dr. Bass. Disposition Disposition: Home, Self Care
[2022-05-06] MEDS: fentaNYL 100 MCG/2 ML Ampul 50 MCG IV (16:20)
[2022-05-06] MEDS: Propofol 200 MG/20 ML Vial 60 MG IV BOLUS (16:31)
[2022-05-06] MEDS: Propofol 200 MG/20 ML Vial IV BOLUS (16:34)
--- NOTE | 2022-05-06 17:00 | RAD_ITS ---
STUDY: X-RAY - LEFT SHOULDER REASON FOR EXAM: Male, 71 years old. post reduction TECHNIQUE: 2 view(s) of the shoulder. COMPARISON: 05/06/2022 at 1556 FINDINGS: Interval reduction of the reverse shoulder arthroplasty prosthesis. Normal acromioclavicular joint. Normal acromion. Normal humeral head and visualized proximal humerus. The soft tissue structures are unremarkable. Normal visualized pulmonary apex. RAD/Shoulder min 2 Views IMPRESSION: Interval reduction of the reverse arthroplasty prosthesis. Electronically Signed: Edward Christie MD at 17:10 EST ,
--- NOTE | 2022-05-06 17:12 | CON.PCM.OR_ITS ---
HPI Consult Data Date of Consult: 05/06/22 HPI Narrative HPI Narrative: KATE AVILA, is a 71 M who is 6 days postop from a left reverse shoulder arthroplasty. Patient was unscrewing a pill bottle 05/03/2022 and felt a pop in his left shoulder and noted severe pain. Prior to this injury, patient states he was doing well and had minimal pain postoperatively. Patient called yesterday and described the situation. I saw the patient in office today. X- rays revealed a anterior superior dislocation of his left reverse shoulder arthroplasty. Closed reduction was attempted in the office setting under articular block. Close reduction was unsuccessful. I referred the patient to the emergency room for conscious sedation. I was called by Dr. Lamas and offered my assistance with a closed reduction maneuver following his initial unsuccessful attempt at closed reduction. Patient denies any fevers, chills, nausea vomiting, chest pain or shortness of breath. Denies any numbness tingling left upper extremity. [facility] Medical History Alcohol use Anxiety Anxiety and depression Arthritis Atherosclerosis of coronary artery bypass graft without angina pectoris Cardiology follow-up encounter COPD (chronic obstructive pulmonary disease) CPAP (continuous positive airway pressure) dependence Daytime somnolence Diabetes Essential hypertension Former smoker GERD (gastroesophageal reflux disease) High cholesterol History of echocardiogram History of renal disease History of steroid therapy History of stress test Hyperlipidemia Obesity (BMI 30.0-34.9) BABS (obstructive sleep apnea) Restless legs Shortness of breath on exertion Sleep apnea Snoring Wears glasses Wears hearing aid Home Medications aspirin 81 mg tablet,delayed release 81 mg PO DAILY@0800 07/15/13 [History Last Taken 04/29/22] atorvastatin 80 mg tablet 80 mg PO QHS 07/15/13 [History Last Taken 07/14/13 2100] cholecalciferol (vitamin D3) 25 mcg (1,000 unit) capsule 1,000 unit PO DAILY 07/15/13 [History Last Taken 07/14/13 0800] citalopram 10 mg tablet 10 mg PO DAILY 07/15/13 [History Last Taken 09/05/13 09:30] clopidogrel 75 mg tablet 75 mg PO DAILY 07/15/13 [History Last Taken 04/25/22] nitroglycerin 0.4 mg sublingual tablet 0.4 mg sublingual Q5M PRN Chest Pain 07/15/13 [History Last Taken 07/15/13 0400] ascorbic acid (vitamin C) 1,000 mg tablet 1 g PO QDAY 07/16/17 [History Last Taken Unknown] losartan 25 mg tablet 25 mg PO QDAY 07/16/17 [History Last Taken 04/30/22] metoprolol succinate 25 mg tablet,extended release 24 hr 25 mg PO QDAY 07/16/17 [History Last Taken 04/30/22] cyclobenzaprine 5 mg tablet 5 mg PO QDAY PRN Pain 1-10 Or Fever 08/30/17 [History Last Taken Unknown] gabapentin 300 mg capsule 600 mg PO QHS 08/30/17 [History Last Taken Unknown] glucosamine sulfate 1,000 mg capsule 1,000 mg PO QDAY 08/30/17 [History Last Taken Unknown] magnesium oxide 500 mg capsule 500 mg PO QDAY 08/30/17 [History Last Taken Unknown] sodium chloride-aloe vera nasal spray (Leola Saline Gel nasal spray) 1 spray intranasal Q1-4H PRN Allergies 05/09/18 [History Last Taken Unknown] meloxicam 15 mg tablet 15 mg PO DAILY 03/19/21 [History Last Taken Unknown] isosorbide mononitrate 30 mg tablet,extended release 24 hr 30 mg PO DAILY 06/13/21 [History Last Taken 04/30/22] ranolazine 500 mg tablet,extended release,12 hr 500 mg PO BID #180 tabs 06/13/21 [Rx Last Taken Unknown] tiotropium 2.5 mcg-olodaterol 2.5 mcg/actuation mist for inhalation 2 puff inhalation DAILY 06/13/21 [History Last Taken Unknown] hydroxyzine pamoate 25 mg capsule 25 mg PO ONCE PRN Anxiety 12/16/21 [History Last Taken Unknown] metformin 500 mg tablet,extended release 24 hr 500 mg PO DAILY 12/16/21 [History Last Taken Unknown] famotidine 20 mg tablet 20 mg PO DAILY 28 days #28 tabs 05/01/22 [Rx Last Taken Unknown] meloxicam 7.5 mg tablet 7.5 mg PO BID 28 days #56 tabs 05/01/22 [Rx Last Taken Unknown] oxycodone 5 mg tablet 5 - 10 mg PO Q4H PRN PRN Pain Score 4-10 7 days #42 tabs 05/01/22 [Rx Last Taken Unknown] Allergy/AdvReac Type Severity Reaction Status Date / Time No Known Allergies Allergy Verified 05/06/22 15:09 Family History Father CAD (coronary artery disease) Hypertension Myocardial infarction Hx of CABG Surgical History History of cataract extraction History of heart surgery History of hernia repair History of laminectomy History of tonsillectomy Postsurgical percutaneous transluminal coronary angioplasty (PTCA) status Presence of aortocoronary bypass graft (~09/28/12) Presence of stent in coronary artery (~03/16/13) Social History Smoking Status: Former smoker how long ago did patient quit smokin years ago alcohol intake: current alcohol intake frequency: a few times a week Alcohol type: beer and hard liquor details: occasional beer substance use type: does not use caffeine: Yes Type: coffee Number of servings: 2 ROS ROS Narrative 12 point review systems obtained, negative unless otherwise noted HPI. Vital Signs Vital Signs Vital Signs: 05/06/22 15:09 05/06/22 16:10 05/06/22 16:11 Temperature 97.9 F Temperature Source Temporal Pulse Rate 70 69 Pulse Rate [1 (Initial Baseline)] 67 Pulse Rate [2] 67 Pulse Rate [3] 65 Pulse Rate [4] 67 Pulse Rate [5] 65 Pulse Rate [Patient has left anterior shoulder dislocation of her prosthetic shoulder joint. He was consented for conscious sedation and shoulder reduction. Given propofol a total of 170 mg. We were unable to reduce the shoulder. The entire time he was resisting. He was also given IV fentanyl for pain control.] Respiratory Rate 14 18 Respiratory Rate [1 (Initial Baseline)] 16 Respiratory Rate [2] 16 Respiratory Rate [3] 18 Respiratory Rate [4] 18 Respiratory Rate [5] 18 Respiratory Rate [Patient has left anterior shoulder dislocation of her prosthetic shoulder joint. He was consented for conscious sedation and shoulder reduction. Given propofol a total of 170 mg. We were unable to reduce the shoulder. The entire time he was resisting. He was also given IV fentanyl for pain control.] Blood Pressure 167/97 H 147/87 H Blood Pressure [1 (Initial Baseline)] 150/87 H Blood Pressure [2] 150/87 H Blood Pressure [3] 154/114 H Blood Pressure [5] 187/111 H Blood Pressure [Patient has left anterior shoulder dislocation of her prosthetic shoulder joint. He was consented for conscious sedation and shoulder redu ction. Given propofol a total of 170 mg. We were unable to reduce the shoulder. The entire time he was resisting. He was also given IV fentanyl for pain control.] Blood Pressure Mean 120 Pulse Ox 95 98 Oxygen Delivery Method Room Air Room Air Oxygen Delivery Method [1 (Initial Baseline)] Nasal Cannula Oxygen Delivery Method [2] Nasal Cannula Oxygen Delivery Method [3] Nasal Cannula Oxygen Delivery Method [4] Nasal Cannula Oxygen Delivery Method [5] Nasal Cannula Oxygen Delivery Method [Patient has left anterior shoulder dislocation of her prosthetic shoulder joint. He was consented for conscious sedation and shoulder reduction. Given propofol a total of 170 mg. We were unable to reduce the shoulder. The entire time he was resisting. He was also given IV fentanyl for pain control.] Oxygen Flow Rate (L/min) Oxygen Flow Rate (L/min) [1 (Initial Baseline)] 6 Oxygen Flow Rate (L/min) [2] 6 Oxygen Flow Rate (L/min) [3] 6 Oxygen Flow Rate (L/min) [4] 6 Oxygen Flow Rate (L/min) [5] 6 Oxygen Flow Rate (L/min) [Patient has left anterior shoulder dislocation of her prosthetic shoulder joint. He was consented for conscious sedation and shoulder reduction. Given propofol a total of 170 mg. We were unable to reduce the shoulder. The entire time he was resisting. He was also given IV fentanyl for pain control.] 05/06/22 16:32 05/06/22 16:37 05/06/22 16:50 Temperature Temperature Source Pulse Rate Pulse Rate [1 (Initial Baseline)] 69 Pulse Rate [2] 73 Pulse Rate [3] Pulse Rate [4] Pulse Rate [5] Pulse Rate [Patient has left anterior shoulder dislocation of her prosthetic shoulder joint. He was consented for conscious sedation and shoulder reduction. Given propofol a total of 170 mg. We were unable to reduce the shoulder. The entire time he was resisting. He was also given IV fentanyl for pain control.] 66 Respiratory Rate Respiratory Rate [1 (Initial Baseline)] 18 Respiratory Rate [2] 18 Respiratory Rate [3] Respiratory Rate [4] Respiratory Rate [5] Respiratory Rate [Patient has left anterior shoulder dislocation of her prosthetic shoulder joint. He was consented for conscious sedation and shoulder reduction. Given propofol a total of 170 mg. We were unable to reduce the shoulder. The entire time he was resisting. He was also given IV fentanyl for pain control.] 20 H Blood Pressure Blood Pressure [1 (Initial Baseline)] 151/127 H Blood Pressure [2] 220/126 H Blood Pressure [3] Blood Pressure [5] Blood Pressure [Patient has left anterior shoulder dislocation of her prosthetic shoulder joint. He was consented for conscious sedation and shoulder reduction. Given propofol a total of 170 mg. We were unable to reduce the shoulder. The entire time he was resisting. He was also given IV fentanyl for pain control.] 151/127 H Blood Pressure Mean Pulse Ox Oxygen Delivery Method Nasal Cannula Nasal Cannula Oxygen Delivery Method [1 (Initial Baseline)] Nasal Cannula Oxygen Delivery Method [2] Nasal Cannula Oxygen Delivery Method [3] Oxygen Delivery Method [4] Oxygen Delivery Method [5] Oxygen Delivery Method [Patient has left anterior shoulder dislocation of her prosthetic shoulder joint. He was consented for conscious sedation and shoulder reduction. Given propofol a total of 170 mg. We were unable to reduce the shoulder. The entire time he was resisting. He was also given IV fentanyl for pain control.] Nasal Cannula Oxygen Flow Rate (L/min) 2 2 Oxygen Flow Rate (L/min) [1 (Initial Baseline)] 2 Oxygen Flow Rate (L/min) [2] 2 Oxygen Flow Rate (L/min) [3] Oxygen Flow Rate (L/min) [4] Oxygen Flow Rate (L/min) [5] Oxygen Flow Rate (L/min) [Patient has left anterior shoulder dislocation of her prosthetic shoulder joint. He was consented for conscious sedation and shoulder reduction. Given propofol a total of 170 mg. We were unable to reduce the shoulder. The entire time he was resisting. He was also given IV fentanyl for pain control.] 2 05/06/22 16:58 05/06/22 17:03 05/06/22 17:08 Temperature Temperature Source Pulse Rate Pulse Rate [1 (Initial Baseline)] Pulse Rate [2] Pulse Rate [3] Pulse Rate [4] Pulse Rate [5] Pulse Rate [Patient has left anterior shoulder dislocation of her prosthetic shoulder joint. He was consented for conscious sedation and shoulder reduction. Given propofol a total of 170 mg. We were unable to reduce the shoulder. The entire time he was resisting. He was also given IV fentanyl for pain control.] Respiratory Rate Respiratory Rate [1 (Initial Baseline)] Respiratory Rate [2] Respiratory Rate [3] Respiratory Rate [4] Respiratory Rate [5] Respiratory Rate [Patient has left anterior shoulder dislocation of her prosthetic shoulder joint. He was consented for conscious sedation and shoulder reduction. Given propofol a total of 170 mg. We were unable to reduce the shoulder. The entire time he was resisting. He was also given IV fentanyl for pain control.] Blood Pressure Blood Pressure [1 (Initial Baseline)] Blood Pressure [2] Blood Pressure [3] Blood Pressure [5] Blood Pressure [Patient has left anterior shoulder dislocation of her prosthetic shoulder joint. He was consented for conscious sedation and shoulder reduction. Given propofol a total of 170 mg. We were unable to reduce the shou lder. The entire time he was resisting. He was also given IV fentanyl for pain control.] Blood Pressure Mean Pulse Ox Oxygen Delivery Method Nasal Cannula Room Air Room Air Oxygen Delivery Method [1 (Initial Baseline)] Oxygen Delivery Method [2] Oxygen Delivery Method [3] Oxygen Delivery Method [4] Oxygen Delivery Method [5] Oxygen Delivery Method [Patient has left anterior shoulder dislocation of her prosthetic shoulder joint. He was consented for conscious sedation and shoulder reduction. Given propofol a total of 170 mg. We were unable to reduce the shoulder. The entire time he was resisting. He was also given IV fentanyl for pain control.] Oxygen Flow Rate (L/min) 2 Oxygen Flow Rate (L/min) [1 (Initial Baseline)] Oxygen Flow Rate (L/min) [2] Oxygen Flow Rate (L/min) [3] Oxygen Flow Rate (L/min) [4] Oxygen Flow Rate (L/min) [5] Oxygen Flow Rate (L/min) [Patient has left anterior shoulder dislocation of her prosthetic shoulder joint. He was consented for conscious sedation and shoulder reduction. Given propofol a total of 170 mg. We were unable to reduce the shoulder. The entire time he was resisting. He was also given IV fentanyl for pain control.] Weight Weight: 299 lb 13.259 oz Body Mass Index (BMI) 43.0 Physical Exam Narrative General -A&Ox3, NAD, appears stated age. Vital signs stable, afebrile. Respiratory -normal work of breathing, no intercostal retractions. CV -pulses regular, brisk capillary refill ?4 limbs. Abdomen-soft, nontender, nondistended. No guarding, rigidity, rebound tenderness. Left upper extremity-well approximated healing deltopectoral incision with healing ecchymosis. Gross deformity of the left shoulder with prominent left proximal humerus. Sensation intact light touch in all dermatomes of the left lower extremity. Cardinal motions left hand are intact. Radial pulse 2+ brisk upper refill in the fingertips. Radiology Impression Shoulder X-Ray 05/06/22 17:00 IMPRESSION: Interval reduction of the reverse arthroplasty prosthesis. Electronically Signed: Edward Christie MD at 17:10 EST , Assessment & Plan Assessment/Plan (1) Anterior dislocation of left shoulder: PLAN: Patient sustained a left anterior dislocation of his left reverse shoulder arthroplasty. No obvious fractures or loosening of the components is evident. No obvious malpositioning. I recommended an additional attempt a closed reduction in the emergency department with my assistance in concert with the emergency room physician Dr. Lamas. Informed consent was obtained prior to the procedure. After timeout was performed, etomidate was administered by emergency room physician. Significant muscle relaxation was achieved. Closed reduction was then performed with axial traction and approximately 45 degrees of abduction with a anterior to posterior force directed over the proximal humerus prosthesis. A palpable clunk was appreciated. Postreduction films demonstrated interval reduction of the left reverse shoulder arthroplasty. He was placed in an abduction pillow and a swath. He awoke uneventfully from conscious sedation and tolerated the procedure well without apparent complication. Patient has a follow-up scheduled in 9 days. I recommended continued sling until follow-up. He may remove sling for shower only recommending keeping the shoulder in the abducted position. Oxycodone has been provided as an outpatient. He will call sooner if any questions or concerns arise. Patient and demonstrated understanding of the above plan.
[2022-05-06] MEDS: Etomidate 20 MG/10 ML Vial IV (17:16)
== END 2022-05-06 18:08 | disposition home or self-care (01) ==
LOC: ED 16:50
PROVIDERS: Emergency Provider Emergency Medicine; PCP Family Medicine; Visit Provider Emergency Medicine
DX: S43.015A Anterior dislocation of left humerus, initial encounter (principal); J44.9 Chronic obstructive pulmonary disease, unspecified; E11.9 Type 2 diabetes mellitus without complications; I25.10 Atherosclerotic heart disease of native coronary artery without angina pectoris; I10 Essential (primary) hypertension; Z96.612 Presence of left artificial shoulder joint; E78.5 Hyperlipidemia, unspecified; Z87.891 Personal history of nicotine dependence; E66.9 Obesity, unspecified; Z95.5 Presence of coronary angioplasty implant and graft
CPT/HCPCS: 23650; 73030; 96374; 96375; 99152; 99284; J7030; J7040; A4216

== ENCOUNTER → 2023-04-13 | Outpatient (CLI) | payer MEDICARE, OTHER, SELFPAY ==
--- NOTE | 2023-04-13 08:01 | CT_ITS ---
STUDY: CT LEFT SHOULDER REASON FOR EXAM: Male, 72 years old. Rule out acromion fracture. RADIATION DOSAGE (If Supplied By Facility): CTDIvol = ( 39.75 ) mGy, DLP = ( 1090.18 ) mGycm TECHNIQUE: The patient was scanned in a multi detector CT scanner. High resolution transaxial imaging was performed without the administration of intravenous contrast material. Sagittal and coronal images were reconstructed. Individualized dose optimization techniques were used for this CT. COMPARISON: Left shoulder radiographs dated 05/06/2022. FINDINGS: There is a reverse shoulder arthroplasty in place. There is a remote appearing fracture of the acromion with 1.1 cm distraction as well as multiple small adjacent bony fragments (axial series 3 images 17-23). Normal visualized lateral clavicle. There is a Type II acromial morphology (curved), with a neutral orientation. Normal visualized scapula. Normal coracoid process. Normal visualized muscles and soft tissue structures. CT/Extremity Upper without Contra IMPRESSION: Reverse shoulder arthroplasty, with a remote appearing fracture of the acromion with 1.1 cm distraction as well as multiple small adjacent bony fragments. Electronically Signed: London Mas MD at 15:43 EST ,
== END | disposition home or self-care (01) ==
LOC: CT 08:00
PROVIDERS: PCP Family Medicine
DX: S42.122A Displaced fracture of acromial process, left shoulder, initial encounter for closed fracture (principal); Z96.612 Presence of left artificial shoulder joint
CPT/HCPCS: 73200

== ENCOUNTER → 2023-07-12 | Outpatient (CLI) | payer MEDICARE, OTHER, SELFPAY ==
--- OUTSIDE RECORDS SUMMARY | 2023-07-12 06:05 | XMS RPT_ITS | CCD ---
Author Name Unknown Address [id number] [place] [address] Organization [facility] Care Team Providers Care Gunstock Spray Unit Adjuster Name Role Phone Michell Ramirez Unavailable Unavailable Guillermina Duenas Unavailable Unavailable Michell Ramirez Unavailable Unavailable Johnathan Rico MD Unavailable Unavailable Primary Care Provider UnavailAnuradha Webb MD Primary Care Provider Anuradha Hurtado MD Primary Care Provider Anuradha Hurtado MD Primary Care Provider Anuradha Hurtado MD Primary Care Provider ROSAMARIA FRANCIS Attending Unavailable KESHA CERDA Referring Unavailable ELDERBROCK, ANURADHA Tai Primary Care Unavailable ELDERBROCK, ANURADHA Tai Primary Care Unavailable JEB LOPEZ Referring Unavailable ELDERBROCK, ANURADHA Tai Primary Care Unavailable ELDERBROCKANURADHA Attending Unavailable CIELO JAVED Referring Unavailable ELDERBROCK, ANURADHA D Primary Care Unavailable KESHA CERDA Attending Unavailable MELYSSA SHELL Referring Unavailable ELDERBROCK, ANURADHA Tai Primary Care Unavailable KESHA CERDA Referring Unavailable ELDERBROCK, ANURADHA Tai Primary Care Unavailable KESHA CERDA Attending Unavailable ELDERBROLARISSA, ANURADHA Tai Primary Care Unavailable ELDERBROCK, ANURADHA Tai Referring Unavailable ELDERBROCK, ANURADHA D Primary Care Unavailable MELYSSA SHELL Attending Unavailable ELDERBROCK, ANURADHA D Primary Care Unavailable ELDERBROCK, ANURADHA D Attending Unavailable ELDERBROCK, ANURADHA D Primary Care Unavailable ELDERBROCK, ANURADHA D Referring Unavailable ELDERBROCK, ANURADHA D Primary Care Unavailable MELYSSA SHELL Attending Unavailable ELDERBROCK, ANURADHA D Primary Care Unavailable KESHA CERDA Referring Unavailable ELDERBROCK, ANURADHA D Primary Care Unavailable KESHA CERDA Referring Unavailable ANURADHA HURTADO Primary Care Unavailable Medications Current Medications Medication Drug Class(es) Dates Sig (Normalized) Sig (Original) acetaminophen 325 mg / HYDROcodone bitartrate 5 mg oral tablet (20 sources) Opioid Agonist Start: 06-07-2023 End: 07-07-2023 take 1 tablet by mouth every eight hours as needed for pain HYDROcodone-acetamin ophen (NORCO) 5-325 mg per tablet Indications: Spinal stenosis, lumbar region, without neurogenic claudication , Intervertebral lumbar disc disorder with myelopathy, lumbar region Take 1 tablet by mouth every 8 hours as needed for pain for up to 30 days. 30 tablet 0 06/07/2023 07/07/2023 Active Completed/Discontinued Medications Medication Drug Class(es) Dates Sig (Normalized) Sig (Original) OXYCODONE-ACETAMIN OPHEN (8 sources) Opioid Agonist Start: 10-06-2012 End: 01-13-2013 take 1 tablet by mouth every four to six hours as needed PERCOCET 5-325 MG TABS One tablet by mouth every 4-6 hours as needed OXYCODONE-ACETAMINO PHEN [id number] Johnathan Rico MD Problems Active Problems Problem Classification Problem Date Documented Da te Episodic/Chronic Anxiety disorders (20 sources) Anxiety; Translations: [Other specified anxiety disorders] Onset: 05-28-2020 05-28-2020 Chronic Chronic obstructive pulmonary disease and bronchiectasis (20 sources) Mild chronic obstructive pulmonary disease; Translations: [Chronic obstructive pulmonary disease, unspecified] Onset: 03-03-2021 03-03-2021 Chronic Coronary atherosclerosis and other heart disease (20 sources) Coronary arteriosclerosis; Translations: [Atherosclerotic heart disease of [place] coronary artery without angina pectoris] Onset: 11-10-2010 11-10-2010 Chronic Diabetes mellitus without complication (10 sources) Increased glucose level; Translations: [Other abnormal glucose] Onset: 07-15-2022 Episodic Disorders of lipid metabolism (20 sources) Hyperlipidemia; Translations: [Hyperlipidemia, unspecified] Onset: 10-16-2005 11-10-2010 Chronic Essential hypertension (20 sources) Hypertensive disorder; Translations: [Benign essential hypertension] Onset: 10-16-2005 11-10-2010 Chronic Hyperplasia of prostate (20 sources) Benign prostatic hypertrophy with outflow obstruction; Translations: [Benign prostatic hyperplasia with lower urinary tract symptoms] Onset: 07-25-2013 07-22-2017 Chronic Immunizations and screening for infectious disease (2 sources) Needs influenza immunization; Translations: [Encounter for immunization] Episodic Mood disorders (1 source) Mood disorders; Translations: [Anxiety and depression] Onset: 01-25-2023 Other hematologic conditions (1 source) Erythrocytosis; Translations: [Secondary polycythemia] Episodic Other lower respiratory disease (9 sources) Dyspnea; Translations: [Snoring] Onset: 03-24-2013 03-24-2013 Episodic Other lower respiratory disease (1 source) Abnormal findings on diagnostic imaging of lung; Translations: [Other nonspecific abnormal finding of lung field] Episodic Other nervous system disorders (1 source) Numbness of hand; Translations: [Anesthesia of skin] Episodic Other non-traumatic joint disorders (1 source) Acute ankle pain; Translations: [Pain in left ankle and joints of left foot] Episodic Other nutritional; endocrine; and metabolic disorders (20 sources) Body mass index (BMI) 38.0-38.9, adult; Translations: [Body mass index (BMI) 37.0-37.9, adult] Onset: 01-13-2013 Resolved: 07-09-2016 01-06-2017 Chronic Other nutritional; endocrine; and metabolic disorders (20 sources) Simple obesity ; Translations: [Other obesity due to excess calories] Onset: 07-01-2015 07-01-2015 Chronic Other nutritional; endocrine; and metabolic disorders (20 sources) Body mass index 40+ - severely obese; Translations: [Morbid (severe) obesity due to excess calories] Onset: 06-14-2019 06-14-2019 Chronic Other nutritional; endocrine; and metabolic disorders (2 sources) Morbid obesity; Translations: [Morbid (severe) obesity due to excess calories] Chronic Other nutritional; endocrine; and metabolic disorders (16 sources) Obesity caused by energy imbalance; Translations: [Other obesity due to excess calories] Onset: 07-01-2015 07-01-2015 Chronic Screening or history of mental health and substance abuse (4 sources) Tobacco dependence syndrome; Translations: [Nicotine dependence, unspecified, uncomplicated] Onset: 11-10-2010 11-10-2010 Chronic Screening or history of mental health and substance abuse (20 sources) History of tobacco use; Translations: [Tobacco use and exposure - finding] Onset: 11-10-2010 05-17-2015 Episodic Spondylosis; intervertebral disc disorders; other back problems (20 sources) Intervertebral disc disorder of lumbar region with myelopathy; Translations: [Intervertebral disc disorders with myelopathy, lumbar region] Onset: 06-14-2008 06-14-2008 Chronic Substance-related disorders (20 sources) Polysubstance dependence; Translations: [Other psychoactive substance dependence, uncomplicated] Onset: 10-22-2020 10-22-2020 Chronic Unclassified (20 sources) Obstructive sleep apnea syndrome; Translations: [Obstructive sleep apnea (adult) (pediatric)] Onset: 07-01-2015 07-11-2015 Chronic Unclassified (4 sources) Coronary artery bypass grafts x 4 ; Translations: [Presence of coronary angioplasty implant and graft] Onset: 01-13-2013 01-13-2013 Unclassified (1 source) Acute cough; Translations: [Acute cough] Onset: 03-09-2022 Past or Other Problems Problem Classification Problem Date Documented Da te Episodic/Chronic Coma, stupor, brain damage (4 sources) Daytime somnolence; Translations: [Somnolence] Onset: 03-04-2015 03-04-2015 Episodic Coronary atherosclerosis and other heart disease (4 sources) Coronary angioplasty status; Translations: [Coronary angioplasty status] Onset: 11-10-2010 11-10-2010 Episodic Malaise and fatigue (4 sources) Other fatigue; Translations: [Other fatigue] Onset: 03-04-2015 03-04-2015 Episodic Neoplasms of unspecified nature or uncertain behavior (4 sources) Neoplasm of uncertain behavior of skin; Translations: [Neoplasm of uncertain behavior of skin] 06-10-2012 Episodic Other aftercare (12 sources) Long-term (current) use of other medications; Translations: [Other supervisor intermediates (current) drug therapy] Onset: 10-04-2013 Resolved: 11-12-2014 10-04-2013 Episodic Other aftercare (20 sources) Prescribed medication regimen behavior finding; Translations: [terminal makeup operator (current) use of opiate analgesic] Onset: 07-23-2016 07-23-2016 Episodic Other and unspecified benign neoplasm (8 sources) Benign neoplasm of scalp and skin of neck; Translations: [Other benign neoplasm of skin of scalp and neck] Onset: 06-17-2012 06-29-2012 Episodic Other circulatory disease (16 sources) Abnormal result of cardiovascular function study, unspecified; Translations: [Cardiovascular stress test abnormal] Onset: 09-14-2012 Resolved: 12-10-2015 12-10-2015 Episodic Other infections; including parasitic (20 sources) Personal history of other infectious and parasitic diseases; Translations: [History of COVID-19] Onset: 05-28-2020 05-28-2020 Episodic Other lower respiratory disease (20 sources) Multiple nodules of lung; Translations: [Other nonspecific abnormal finding of lung field] Onset: 01-31-2021 Episodic Other lower respiratory disease (20 sources) Dyspnea on exertion; Translations: [Dyspnea, unspecified] Onset: 05-28-2020 05-28-2020 Episodic Other lower respiratory disease (1 source) Other nonspecific abnormal finding of lung field; Translations: [Lung nodules] Onset: 07-09-2022 Episodic Spondylosis; intervertebral disc disorders; other back problems (20 sources) Spinal stenosis of lumbar region; Translations: [Spinal stenosis, lumbar region without neurogenic claudication] Onset: 06-14-2008 06-14-2008 Episodic Unclassified (4 sources) FH: Hypertension; Translations: [Family history of ischemic heart disease and other diseases of the circulatory system] 11-15-2014 Episodic Results Test Name Value Interpretation Reference Range Facil ity Vital Signs Date Time Vital Sign Value Performing Clinician Faci lity 07-27-2022 13:24-0400 Body temperature 97.9 [degF] Melyssa Shell APRN.CNP Work Phone: [facility] 07-27-2022 13:24-0400 Body weight 132.9 kg Melyssa Shell APRN.CNP Work Phone: [facility] 07-27-2022 13:24-0400 Diastolic blood pressure 82 mm[Hg] Melyssa Shell APRN.CNP Work Phone: [facility] 07-27-2022 13:24-0400 Heart rate 83 /min Melyssa Shell APRN.CNP Work Phone: [facility] 07-27-2022 13:24-0400 Respiratory rate 16 /min Melyssa Shell APRN.PROGRAM COUNSELOR Work Phone: [facility] 07-27-2022 13:24-0400 SaO2% (BldA) [Mass fraction] 97 % Melyssa Shell QUANTITATIVE MANAGER.PROGRAM COUNSELOR Work Phone: [facility] 07-27-2022 13:24-0400 Systolic blood pressure 127 mm[Hg] Melyssa Shell QUANTITATIVE MANAGER.PROGRAM COUNSELOR Work Phone: [facility] 07-13-2022 09:45-0400 Body height 177.8 cm Kesha Cerad MD Work Phone: [facility] 07-13-2022 09:45-0400 Body weight 133.81 kg Kesha Cerda MD Work Phone: [facility] 07-13-2022 09:45-0400 Diastolic blood pressure 82 mm[Hg] Kesha Cerda MD Work Phone: [facility] 07-13-2022 09:45-0400 Heart rate 70 /min Kesha Cerda MD Work Phone: [facility] 07-13-2022 09:45-0400 Respiratory rate 14 /min Kesha Cerda MD Work Phone: [facility] 07-13-2022 09:45-0400 SaO2% (BldA) [Mass fraction] 98 % Kesha Cerda MD Work Phone: [facility] 07-13-2022 09:45-0400 Systolic blood pressure 124 mm[Hg] Kesha Cerda MD Work Phone: [facility] 03-24-2022 10:22-0500 Body weight 133.36 kg Kesha Cerda MD Work Phone: [facility] 03-23-2022 10:26-0500 Body weight 133.81 kg Anuradha Hurtado MD Work Phone: [facility] 03-23-2022 10:26-0500 Diastolic blood pressure 80 mm[Hg] Anuradha Hurtado MD Work Phone: [facility] 03-23-2022 10:26-0500 Heart rate 74 /min Anurdaha Hurtado MD Work Phone: [facility] 03-23-2022 10:26-0500 Respiratory rate 18 /min Anuradha Hurtado MD Work Phone: [facility] 03-23-2022 10:26-0500 Systolic blood pressure 130 mm[Hg] Anuradha Hurtado MD Work Phone: [facility] 10-20-2021 10:04-0400 Body temperature 98.2 [degF] Mohamud Rgey QUANTITATIVE MANAGER.PROGRAM COUNSELOR Work Phone: [facility] 10-20-2021 10:04-0400 Body weight 145.15 kg Mohamud Edmonds QUANTITATIVE MANAGER.PROGRAM COUNSELOR Work Phone: [facility] 10-20-2021 10:04-0400 Diastolic blood pressure 80 mm[Hg] Mohamud Edmonds QUANTITATIVE MANAGER.PROGRAM COUNSELOR Work Phone: [facility] 10-20-2021 10:04-0400 Heart rate 72 /min Mohamud Grey QUANTITATIVE MANAGER.PROGRAM COUNSELOR Work Phone: [facility] 10-20-2021 10:04-0400 Respiratory rate 18 /min Mohamud Grey QUANTITATIVE MANAGER.PROGRAM COUNSELOR Work Phone: [facility] 10-20-2021 10:04-0400 SaO2% (BldA) [Mass fraction] 97 % Mohamud Edmonds QUANTITATIVE MANAGER.PROGRAM COUNSELOR Work Phone: [facility] 10-20-2021 10:04-0400 Systolic blood pressure 134 mm[Hg] Mohamud Edmonds QUANTITATIVE MANAGER.PROGRAM COUNSELOR Work Phone: [facility] 10-16-2021 10:46-0400 Body weight 146.88 kg Cielo Javed QUANTITATIVE MANAGER.PROGRAM COUNSELOR Work Phone: [facility] 10-16-2021 10:46-0400 Diastolic blood pressure 86 mm[Hg] Cielo Javed QUANTITATIVE MANAGER.PROGRAM COUNSELOR Work Phone: [facility] 10-16-2021 10:46-0400 Heart rate 60 /min Cielo Javed QUANTITATIVE MANAGER.PROGRAM COUNSELOR Work Phone: [facility] 10-16-2021 10:46-0400 Respiratory rate 18 /min Cielo Javed QUANTITATIVE MANAGER.PROGRAM COUNSELOR Work Phone: [facility] 10-16-2021 10:46-0400 Systolic blood pressure 120 mm[Hg] Cielo Javed QUANTITATIVE MANAGER.PROGRAM COUNSELOR Work Phone: [facility] 09-08-2021 10:43-0400 Body height 180.3 cm Kesha Cerda MD Work Phone: [facility] 09-08-2021 10:43-0400 Body weight 146.97 kg Kesha Cerda MD Work Phone: [facility] 09-08-2021 10:43-0400 Diastolic blood pressure 78 mm[Hg] Kesha Cerda MD Work Phone: [facility] 09-08-2021 10:43-0400 Heart rate 63 /min Kesha Cerda MD Work Phone: [facility] 09-08-2021 10:43-0400 Respiratory rate 14 /min Kesha Cerda MD Work Phone: [facility] 09-08-2021 10:43-0400 SaO2% (BldA) [Mass fraction] 97 % Kesha Cerda MD Work Phone: [facility] 09-08-2021 10:43-0400 Systolic blood pressure 133 mm[Hg] Kesha Cerda MD Work Phone: [facility] 01-06-2017 11:22-0400 BMI (Body Mass Index) 38.22 kg/m2 Guillermina [facility] Work Phone: 01-06-2017 11:22-0400 BP Diastolic 80 mm[Hg] Guillerm[facility] Work Phone: 01-06-2017 11:22-0400 BP Systolic 118 mm[Hg] Guillerm[facility] Work Phone: 01-06-2017 [id number] Height 180.97 cm [facility] Work Phone: 01-06-2017 11:22-0400 Pulse (Heart Rate) 60 /min Guillermina [facility] Work Phone: 01-06-2017 11:22-0400 Respiratory Rate 20 /min Guillermina [facility] Work Phone: 01-06-2017 11:22-0400 Weight 125.19 kg Guillermina [facility] Work Phone: 07-09-2016 13:27-0500 BMI (Body Mass Index) 37.25 kg/m2 Johnathan Rico MD [facility] Work Phone: 07-09-2016 13:27-0500 BP Diastolic 70 mm[Hg] Johnathan Rico MD [facility] Work Phone: 07-09-2016 13:27-0500 BP Systolic 120 mm[Hg] Johnathan Rico MD [facility] Work Phone: 07-09-2016 13:27-0500 Pulse (Heart Rate) 60 /min [facility] Work Phone: 07-09-2016 13:27-0500 Respiratory Rate 18 /min Johnathan Rico MD [facility] Work Phone: 07-09-2016 13:27-0500 Weight 122.02 kg Johnathan [facility] Work Phone: 12-13-2015 10:54-0400 BSA (Body Surface Area) 2.37 m2 Johnathan [facility] Work Phone: 10-17-2012 09:20-0400 Body Temperature 98.6 [degF] Johnathan Rico MD [facility] Work Phone: 06-09-2012 10:01-0500 Height 180.97 cm Johnathan [facility] Work Phone: Encounters Encounter Date Encounter Type Care Provider Facility Start: 07-02-2023 Orders Only Christie Armas er QUANTITATIVE MANAGER.PROGRAM COUNSELOR Work Phone: [facility] Pulmonary Procedures Date Procedure Procedure Detail Performing Clinician Start: 01-25-2023 Lipid 1996 panel - S milan or Plasma Melyssa Shell QUANTITATIVE MANAGER.PROGRAM COUNSELOR Work Phone: Start: 07-09-2022 Ct thorax w/o contra st material Kesha Cerda MD Work Phone: Start: 03-23-2022 PFIZER-BIONTECH COVI D-19 BIVALENT BOOSTER VACCINE, AGE 12+ YR Anuradha Hurtado MD Work Phone: Start: 03-23-2022 INFLUENZA SEASONAL QUADRIVALENT HIGH DOSE AGE 65+ Anuradha Hurtado MD Work Phone: Start: 10-20-2021 Radex ankle complete minimum 3 views Mohamud Edmonds QUANTITATIVE MANAGER.PROGRAM COUNSELOR Work Phone: Start: 08-01-2021 Ct thorax w/o contra st material Melyssa Shell QUANTITATIVE MANAGER.PROGRAM COUNSELOR Work Phone: Start: 07-11-2021 Adult depression scr eening assessment Ct (I-Stat) Work Phone: Start: 11-05-2020 EMG REPORT Abhay Peralta Danny fitzgeraldmigue DO Work Phone: Start: 10-22-2020 NERVE CONDUCTION DAVID T WITH EMG Colton Koroma MD Work Phone: Start: 01-06-2017 End: 01-06-2017 Follow Up Appt 6 months Ashley waller PA-C Work Phone: Start: 01-06-2017 End: 01-06-2017 PFM Ashley Darling PA-C Work Phone: Start: 07-09-2016 End: 01-06-2017 *Hepatic Function Panel Johnathan Rico MD Start: 07-09-2016 End: 07-09-2016 Follow Up Appt 6 months Johnathan Rico MD Start: 07-09-2016 End: 01-06-2017 Lipid panel [AGGREGATE] Johnathan Rico MD Start: 07-09-2016 End: 07-09-2016 MMM Johnathan Rico MD Start: 06-12-2016 End: 07-06-2016 *Hepatic Function Panel Johnathan Rico MD Start: 06-12-2016 End: 07-06-2016 Lipid panel [AGGREGATE] Johnathan Rico MD Start: 12-13-2015 End: 12-13-2015 Follow Up Appt 6 months Ashley waller PA-C Work Phone: Start: 12-13-2015 End: 12-13-2015 PF Ashley Darling PA-C Work Phone: Start: 11-13-2015 End: 12-11-2015 *Hepatic Function Panel Johnathan Rico MD Start: 11-13-2015 End: 12-11-2015 Lipid panel [AGGREGATE] Johnathan Rico MD Start: 05-17-2015 End: 12-03-2015 *Hepatic Function Panel Johnathan Rico MD Start: 05-17-2015 End: 05-17-2015 Follow Up Appt 6 months Johnathan Rico MD Start: 05-17-2015 End: 12-03-2015 Lipid panel [AGGREGATE] Johnathan Rico MD Start: 05-17-2015 End: 05-17-2015 MMM Johnathan Rico MD Start: 05-14-2015 End: 05-14-2015 *Hepatic Function Panel Johnathan Rico MD Start: 05-14-2015 End: 05-14-2015 Lipid panel [AGGREGATE] Johnathan Rico MD Start: 03-04-2015 End: 03-05-2015 Documentation of current medications Ashley Darling PA-C Work Phone: Start: 03-04-2015 End: 03-04-2015 Follow Up Appt Other Ashley galvez PA-C Work Phone: Start: 03-04-2015 End: 12-03-2015 Sleep Study, complete Ashley moore PA-C Work Phone: Start: 03-04-2015 End: 03-05-2015 Smoking cessation education Ashley Borges PA-C Work Phone: Start: 11-30-2014 End: 02-21-2015 Cardiac Referral Marcos Menjivar MD Work Phone: Start: 11-15-2014 End: 11-16-2014 Documentation of current medications Ashley Darling PA-C Work Phone: Start: 11-15-2014 End: 11-15-2014 Electrocardiogram, complete Ashley Borges PA-C Work Phone: Start: 11-15-2014 End: 11-15-2014 Follow Up Appt 3 months Ashley waller PA-C Work Phone: Start: 11-15-2014 End: 11-15-2014 Follow Up Appt 6 months Ashley waller PA-C Work Phone: Start: 11-15-2014 End: 11-15-2014 MMM Ashley Darling PA-C Work Phone: Start: 11-15-2014 End: 11-30-2014 Nuclear stress test -Lexiscan Ashley Darling PA-C Work Phone: Start: 11-15-2014 End: 11-15-2014 PFM Ashley Darling PA-C Work Phone: Start: 10-29-2014 End: 11-09-2014 *Hepatic Function Panel Johnathan Rico MD Start: 10-29-2014 End: 11-09-2014 Lipid panel [AGGREGATE] Johnathan Rico MD Start: 09-03-[address] (I-Stat ) Work Phone: Start: 05-18-2014 End: 05-19-2014 Documentation of current medications Johnathan Rico MD Start: 05-18-2014 End: 05-18-2014 Follow Up Appt 6 months Johnathan Rico MD Start: 05-18-2014 End: 11-06-2014 Follow Up Appt Other Johnathan Rico MD Start: 05-18-2014 End: 05-18-2014 MMM Johnathan Rico MD Start: 05-18-2014 End: 05-19-2014 Smoking cessation education Johnathan heard MD Start: 05-18-2014 End: 11-06-2014 Thyroid stimulating hormone (TSH) Johnathan Rico MD Start: 05-18-2014 End: 11-06-2014 Thyroxine (T4) Johnathan Rico MD Start: 04-02-2014 End: 04-30-2014 *Hepatic Function Panel Johnathan Rico MD Start: 04-02-2014 End: 04-30-2014 Lipid panel [AGGREGATE] Johnathan Rico MD Start: 12-28-2013 End: 12-28-2013 Follow Up Appt 4 months Ashley waller PA-C Work Phone: Start: 12-28-2013 End: 12-28-2013 PFM Ashley Darling PA-C Work Phone: Start: 09-29-2013 End: 10-02-2013 *Hepatic Function Panel Johnathan Rico MD Start: 09-29-2013 End: 12-05-2013 Follow Up Appt 3 months Johnathan Rico MD Start: 09-29-2013 End: 10-02-2013 Lipid panel [AGGREGATE] Johnathan Rico MD Start: 09-29-2013 End: 12-05-2013 MMM Johnathan Rico MD Start: 05-26-2013 End: 05-26-2013 Follow Up Appt 3 months Ashley waller PA-C Work Phone: Start: 05-26-2013 End: 05-26-2013 Follow Up Appt 6 months Ashley waller PA-C Work Phone: Start: 05-26-2013 End: 05-26-2013 PFM Ashley Darling PA-C Work Phone: Start: 05-17-2013 End: 08-09-2013 Cardiac Rehab Marcos Menjivar MD Work Phone: Start: 05-04-2013 End: 05-17-2013 Stress Echocardiogram (treadmill) Marcos Menjivar MD Work Phone: Start: 03-27-2013 End: 03-27-2013 Electrocardiogram, complete Johnathan heard MD Start: 03-27-2013 End: 03-27-2013 Follow Up Appt 3 months Johnathan Rico MD Start: 03-27-2013 End: 03-27-2013 MMM Johnathan Rico MD Start: 02-16-2013 End: 02-16-2013 Electrocardiogram, complete Johnathan heard MD Start: 02-16-2013 End: 02-16-2013 Follow Up Appt 3 months Johnathan Rico MD Start: 02-16-2013 End: 02-16-2013 Follow Up Appt 6 weeks Johnathan Rico MD Start: 02-16-2013 End: 02-16-2013 MMM Johnathan Rico MD Start: 02-16-2013 End: 02-16-2013 PFM Johnathan Rico MD Start: 01-17-2013 End: 01-19-2013 *BMP Johnathan Rico MD Start: 01-17-2013 End: 01-19-2013 *CBC with Differential Johnathan Rico MD Start: 01-17-2013 End: 01-19-2013 Chest x-ray Johnathan Rico MD Start: 01-17-2013 End: 01-19-2013 Coagulation factor induced.INR assay in platelet poor plasma Johnathan Rico MD Start: 01-17-2013 End: 01-19-2013 Left Heart Cath W/Grafts Johnathan rendon MD Start: 01-13-2013 End: 01-13-2013 Electrocardiogram, complete Johnathan heard MD Start: 01-13-2013 End: 01-13-2013 Follow Up Appt 6 weeks Johnathan Rico MD Start: 01-13-2013 End: 01-13-2013 MMM Johnathan Rico MD Start: 01-13-2013 End: 01-19-2013 Nuclear stress test -exercise Johnathan billingsley MD Start: 11-10-2012 End: 11-14-2012 *Hepatic Function Panel Ashley waller PA-C Work Phone: Start: 11-10-2012 End: 11-10-2012 Follow Up Appt Other Ashley galvez PA-C Work Phone: Start: 11-10-2012 End: 11-14-2012 Lipid panel [AGGREGATE] Ashley waller PA-C Work Phone: Start: 11-07-2012 End: 11-10-2012 Cardiovascular stress test using treadmill Johnathan Rico MD Start: 10-17-2012 End: 10-17-2012 Electrocardiogram, complete Ashley Borges PA-C Work Phone: Start: 10-17-2012 End: 10-17-2012 Follow Up Appt Other Ashley galvez PA-C Work Phone: Start: 09-20-2012 End: 10-17-2012 Left Heart Cath Johnathan Rico MD Start: 09-14-2012 End: 09-14-2012 *BMP Johnathan Rico MD Start: 09-14-2012 End: 09-14-2012 aPTT Johnathan Rico MD Start: 09-14-2012 End: 09-14-2012 CBC W Auto Differential panel - Blood Johnathan Rico MD Start: 09-14-2012 End: 09-15-2012 Chest x-ray Johnathan Rico MD Start: 09-14-2012 End: 09-14-2012 Coagulation factor induced.INR assay in platelet poor plasma Johnathan Rico MD Start: 09-14-2012 End: 09-14-2012 Nurse, Teaching, Wound Check (no charge) Johnathan Rico MD Start: 09-07-2012 End: 09-15-2012 Echocardiography Johnathan Rcio MD Start: 09-07-2012 End: 09-07-2012 Electrocardiogram, complete Johnathan heard MD Start: 09-07-2012 End: 09-07-2012 Follow Up Appt 6 months Johnathan Rico MD Start: 09-07-2012 End: 10-17-2012 Follow Up Appt Other Johnathan Rico MD Start: 09-07-2012 End: 10-17-2012 Nuclear stress test -exercise Johnathan billingsley MD Start: 09-07-2012 End: 09-07-2012 PFM Johnathan Rico MD Plan of Treatment Date Care Activity Detail Author Start: 05-27-2031 Urine microalbumin profile [facility] Start: 01-26-2028 Lipid 1996 panel - Serum or Plasma Lipid Screening [facility] Start: 01-26-2028 Lipid panel Lipid Screening [facility] Start: 07-16-2027 LIPID SCREEN LIPID SCREEN [facility] Start: 10-08-2026 LIPID SCREEN LIPID SCREEN [facility] Start: 03-19-2026 LIPID SCREEN LIPID SCREEN [facility] Start: 01-25-2026 Diabetes Screening Diabetes Screening [facility] Start: 07-15-2025 DIABETES SCREEN DIABETES SCREEN [facility] Start: 01-09-2025 DIABETES SCREEN DIABETES SCREEN [facility] Start: 10-08-2024 DIABETES SCREEN DIABETES SCREEN [facility] Start: 09-03-2024 Colonoscopy COLONOSCOPY [facility] Start: 09-03-2024 COLORECTAL CANCER SCREENING COLORECTAL CANCER SCREENING [facility] Start: 09-03-2024 Screening for malignant neoplasm of colon [facility] Start: 01-26-2024 Annual PCP Team Chronic Disease Visit Annual PCP Team Chronic Disease Visit [facility] Start: 01-26-2024 Hepatitis B surface antibody level LDL Cholesterol [facility] Start: 01-24-2024 DIABETES SCREEN DIABETES SCREEN [facility] Start: 10-30-2023 ANNUAL PCP TEAM CHRONIC DISEASE VISIT ANNUAL PCP TEAM CHRONIC DISEASE VISIT [facility] Start: 07-28-2023 ANNUAL PCP TEAM CHRONIC DISEASE VISIT ANNUAL PCP TEAM CHRONIC DISEASE VISIT [facility] Start: 07-27-2023 End: 09-26-2023 Comprehensive metabolic 2000 panel - Serum or Plasma COMP METABOLIC PANEL Lab Routine Hyperlipidemia LDL goal <100 Expected: 07/27/2023 (Approximate), Expires: 09/26/2023 [facility] Work Phone: Immunizations Immunization Date Immunization Notes Care Provider Bc nava 01-25-2023 influenza (HD-IIV4) vaccine, age 65+ yr, high dose, quadrivalent, PF (FLUZONE HIGH-DOSE) Melyssa Shell QUANTITATIVE MANAGER.PROGRAM COUNSELOR Work Phone: [facility] 03-23-2022 COVID-19 booster vaccine, age 12+ yr, bivalent (PFIZER-BIONTECH) Melyssa Shell QUANTITATIVE MANAGER.PROGRAM COUNSELOR Work Phone: [facility] 03-23-2022 influenza, high-dose , quadrivalent vaccine (FLUZONE HIGH DOSE QUADRIVALENT) Melyssa Shell QUANTITATIVE MANAGER.PROGRAM COUNSELOR Work Phone: [facility] 05-27-2021 tetanus toxoid, redu dorinda diphtheria toxoid, and acellular pertussis vaccine, adsorbed Cielo Javed QUANTITATIVE MANAGER.PROGRAM COUNSELOR Work Phone: [facility] 03-22-2021 influenza (aIIV4) vaccine, age 65+ yr, quadrivalent, PF (FLUAD QUADRIVALENT) Cielo Javed QUANTITATIVE MANAGER.PROGRAM COUNSELOR Work Phone: [facility] 04-29-2020 hepatitis A vaccine, adult dosage Cielo Stonef QUANTITATIVE MANAGER.PROGRAM COUNSELOR Work Phone: [facility] 01-11-2020 influenza, high dose seasonal, preservative-free Ct (I-Stat) Work Phone: [facility] 01-11-2020 influenza, injectabl e, quadrivalent, preservative free Cielo Javed QUANTITATIVE MANAGER.PROGRAM COUNSELOR Work Phone: [facility] 01-11-[address] (I-Stat) Work Phone: [facility] 10-24-2019 hepatitis A vaccine, adult dosage Cielo Colehof QUANTITATIVE MANAGER.PROGRAM COUNSELOR Work Phone: [facility] 10-24-[address] (I-Stat) Work Phone: [facility] 03-09-2019 Influenza, injectabl e, Madin Nena Canine Kidney, preservative free, quadrivalent Ct (I-Stat) Work Phone: [facility] 05-26-2018 pneumococcal polysaccharide vaccine, [address] (I-Stat) Work Phone: [facility] 02-03-2018 influenza, high dose seasonal, preservative-free Ct (I-Stat) Work Phone: [facility] 12-28-2016 pneumococcal conjuga te vaccine, [address] (I-Stat) Work Phone: [facility] 12-15-2016 influenza, seasonal, injectable Ct (I-Stat) Work Phone: [facility] 03-16-2013 pneumococcal polysaccharide vaccine, [address] (I-Stat) Work Phone: [facility] 03-03-2013 pneumococcal polysaccharide vaccine, 23 valent Cielo Javed QUANTITATIVE MANAGER.PROGRAM COUNSELOR Work Phone: [facility] 03-03-2013 pneumococcal vaccine , unspecified formulation Melyssa Trent QUANTITATIVE MANAGER.PROGRAM COUNSELOR Work Phone: [facility] Work Phone: 02-17-2013 influenza virus vacc ine, unspecified formulation Ct (I-Stat) Work Phone: [facility] 02-17-2013 tetanus toxoid, redu dorinda diphtheria toxoid, and acellular pertussis vaccine, adsorbed Ct (I-Stat) Work Phone: [facility] 01-01-2013 influenza, injectabl e, quadrivalent, preservative free Melyssa Shell QUANTITATIVE MANAGER.PROGRAM COUNSELOR Work Phone: [facility] Work Phone: 01-01-2013 influenza, seasonal, injectable, preservative free Cielo Javed QUANTITATIVE MANAGER.PROGRAM COUNSELOR Work Phone: [facility] 05-31-2012 zoster vaccine, live Ct (I-S tat) Work Phone: [facility] 12-02-1999 diphtheria and tetan us toxoids, adsorbed for pediatric use Ct (I-Stat) Work Phone: [facility] Payers Date Payer Category Payer Private Health Insurance [id number] 2018 Private Health Insurance [facility] AARP SUPPLEMENT [id number] 2018-Present [phone] [address] [place] [address] Indemnity [id number] 2018 Private Health Insurance [facility] AARP SUPPLEMENT [id number] 2018-Present [phone] [address] [place] [address] Indemnity [id number] 2016 Medicare [id number] 2016 Medicare MEDICARE MEDICAR E A AND B [id number] 2016-Present [phone] [place] [address] Medicare [id number] 2016 Medicare MEDICARE MEDICAR E A AND B [id number] 2016-Present [phone] [place] [address] Medicare [id number] Social History Date Type Detail Facility Start: 09-12-2020 End: 03-09-2022 Tobacco smoking status NHIS Former smoker [facility] Work Phone: Start: 09-12-2020 End: 03-09-2022 Tobacco use and exposure Never used [facility] Start: 1950 Sex Assigned At Not on file S [facility] Work Phone: End: 12-03-2014 History of tobacco use Current smoker [facility] Work Phone: End: 12-03-2014 History of tobacco use Cigarette Smoker [facility] Work Phone: Start: 09-27-2014 End: 10-29-2022 Cigarettes smoked current (pack per day) - Reported 2 [facility] Start: 07-16-2021 End: 01-27-2023 Alcohol intake Current drinker of alcohol (finding) [facility] Start: 05-24-2019 End: 07-23-2022 History SDOH Alcohol Frequency 3 [facility] Start: 05-24-2019 End: 07-23-2022 History SDOH Alcohol Std Drinks 1 [facility] Start: 11-16-2019 History SDOH Social Connections Phone 4 [facility] Start: 11-16-2019 End: 07-23-2022 History SDOH Stress 2 [facility] Start: 05-24-2019 End: 07-23-2022 History SDOH Financial 5 [facility] Start: 05-24-2019 Education 17 [facility] Start: 06-14-2019 End: 03-09-2022 Tobacco Comment start age: 20 [facility] Start: 07-06-2021 End: 03-23-2022 Exposure to SARS-CoV-2 (event) Not sure [facility] Start: 07-23-2022 End: 10-29-2022 Social connection and isolation panel [facility] Do you belong to any clubs or organizations such as zoroastrian groups, unions, fraternal or athletic groups, or school groups? Yes [facility] Are you now , , , , never or living with a partner? [facility] How often to you hav e a drink containing alcohol? 2-4 times a month [facility] How many standard dr inks containing alcohol do you have on a typical day? 1 or 2 [facility] How often do you hav e 6 or more drinks on 1 occasion? Never [facility] How hard is it for y ou to pay for the very basics like food, housing, medical care, and heating Not hard at all [facility] Do you feel stress - tense, restless, nervous, or anxious, or unable to sleep at night because your mind is troubled all the time - these days [OSQ] Only a little [facility] (I/We) worried wheth er (my/our) food would run out before (I/we) got money to buy more. Never true [facility] In the past 12 month s, was there a time when you were not able to pay the mortgage or rent on time? No [facility] Clinical Notes 07-23-2016 to 06-07-2023 Telephone Encounter - Anuradha Hurtado MD - 06/07/2023 12:32 PM ESTTelephone Encounter - Luisa Lucero Ma - 06/07/2023 8:46 AM ESTTelephone Encounter - Raissa Medeiros Ma - 03/26/2023 8:23 AM EST Note Date & Type Note Facility 06-07-2023 Miscellaneous Notes OK to refill as ordered Anuradha Hurtado MD Patient has been identified by name and date of : Yes, Provider Anuradha Hurtado MD Date June 07, 2023 Time 8:46 AM Patient phones for refill(s): Requested Prescriptions Pending Prescriptions Disp Refills HYDROcodone-acetaminophen (NORCO) 5-325 mg per tablet 30 tablet 0 Sig: Take 1 tablet by mouth every 8 hours as needed for pain for up to 30 days. Date of last office visit in primary care: 01/25/2023 Date of next office visit in primary care: 07/26/2023 Bigelow #30 on 05/06/23 Please advise. Thank you. Luisa Lucero Ma. documented in this encounter [facility] 03-27-2023 Miscellaneous Notes OK to refill as ordered Anuradha Hurtado MD Last OV: 01/25/23 Next OV: 07/26/23 Last Rx: Atorvastatin: 03/09/22 #90 w/3. Losartan: 03/09/22 #90 w/3. Metoprolol: 08/10/22 #90 w/3 Mobic: 02/08/23 #90 w/3 Asked pt which pharmacy he uses since some of these were sent to local Mail order pharmacy. Wait pt response. Raissa Medeiros Ma documented in this encounter [facility] 03-22-2023 Miscellaneous Notes Approved PDMP website checked and validated. All prescriptions have been APPROPRIATELY filled. No suspicious activity was identified. 03/22/2023 by Melyssa Shell APRN.CNP The following approved medication requests have been transmitted electronically. Requested Prescriptions Signed Prescriptions Disp Refills HYDROcodone-acetaminophen (NORCO) 5-325 mg per tablet 30 tablet 0 Sig: Take 1 tablet by mouth every 8 hours as needed for pain for up to 30 days. Authorizing Provider: MELYSSA SHELL APRN.CNP LINDA-01/25/23 Labs-01/25/23 NOV-07/26/23 MariaD Au LPN documented in this encounter [facility] 02-08-2023 Miscellaneous Notes The following approved medication requests have been transmitted electronically. Requested Prescriptions Pending Prescriptions Disp Refills meloxicam (MOBIC) 15 mg tablet 90 tablet 3 Sig: Take 1 tablet by mouth once daily. Melyssa Shell APRN.CNP Patient has been identified by name and date of : Pharmacy phones for refill(s): Requested Prescriptions Pending Prescriptions Disp Refills meloxicam (MOBIC) 15 mg tablet 90 tablet 3 Sig: Take 1 tablet by mouth once daily. Date of last office visit in primary care:01/26/2023 Date of next office visit in primary care: 07/26/2023 Last 2 Encounter Wt Readings:01/25/2023 Date: Wt: 01/27/2023 127 kg (280 lb) 01/27/2023 127 kg (280 lb) Previous labs/tests for medication: Not applicable Please advise. Thank you. Dorcas Mueller LPN. documented in this encounter [facility] 01-27-2023 Note HNO ID: [id number] Author: Rosamaria Francis PA-C Service: ? Author Type: Physician Director Of Marketing Operations Type: Progress Notes Filed: 01/27/2023 1:44 PM Note Text: Patient: Иван Agosto PCP: Anuradha Hurtado MD CC: follow up HPI: Иван Agosot 72 year old male morbidly obese male former [id number] smoker and quit in 2014 with PMH significant for CAD s/p stents and CABG, CKD, HTN, HLD, BABS on CPAP, history of COVID 03/2020, mild COPD and abnormal chest CT with pulmonary nodularity and groundglass opacities. Was enrolled in lung cancer screening program at [facility] with original CT in 2019. Most recent CT chest July 2022 shows stable mild reticulations, scarring, groundglass opacities consistent with his previous COVID infection. Small 2 to 3 mm right lung nodule and several left lower lobe lung nodules all stable. Current maintenance therapy with Stiolto. Patient states he has not used Stiolto for almost 3 months. Prior to that he was using it as directed and did not notice a difference in symptoms. Occasional cough that is non-productive. Reports a tickle in his throat. Denies heartburn or GERD. No wheezing. Exertional dyspnea with climbing stairs. SOB does not keep him from activities he enjoys. He is an avid eliu and tries to close his activity rings on apple watch. No lower extremity edema. Consistently wearing CPAP with all sleep. PAST MEDICAL HISTORY Diagnosis Date Anxiety and depression 07/01/2015 ASHD (arteriosclerotic heart disease) 11/21/2010 stent CKD (chronic kidney disease) stage 3, GFR 30-59 ml/min ([facility]) 07/23/2016 COPD (chronic obstructive pulmonary disease) ([facility]) History of COVID-19 HTN (hypertension) HYPERLIPIDEMIA NEC/NOS 10/16/2005 Incisional hernia 03/02/2013 Inguinal hernia 07/25/2013 Internal hemorrhoids without mention of complication Left inguinal hernia 09/05/[address] Multiple lung nodules on CT 01/31/202101/2021 CT showing bilateral nodules, ground glass, repeat CT of chest in 6 months ordered Obstructive sleep apnea syndrome 07/01/2015 CPAP Other anxiety states S/P angioplasty with stent S/P CABG x 4 09/28/2012 FIGUEROA-LAD, SVG PDA, SVG Ramus and SVG Distal OM Tobacco use disorder 06/01/2007 Allergies: No Known Allergies [START ON 03/15/2023] HYDROcodone-acetaminophen (NORCO) 5-325 mg per tablet Take 1 tablet by mouth every 8 hours as needed for pain for up to 30 days. Do not fill before March 15, 2023. Do not start before March 15, 2023. clopidogrel (PLAVIX) 75 mg tablet Take 1 tablet by mouth once daily. isosorbide mononitrate ER (IMDUR) 30 mg 24 hr tablet Take 1 tablet by mouth once daily. metFORMIN ER (GLUCOPHAGE XR) 500 mg 24 hr tablet Take 1 tablet by mouth twice daily with meals. gabapentin (NEURONTIN) 300 mg capsule Take 1 capsule by mouth three times daily for 90 days. HYDROcodone-acetaminophen (NORCO) 5-325 mg per tablet Take 1 tablet by mouth every 8 hours as needed for pain for up to 30 days. Do not start before January 13, 2023. meloxicam (MOBIC) 15 mg tablet Take 1 tablet by mouth once daily. metoprolol succinate ER (TOPROL XL) 25 mg 24 hr tablet Take 1 tablet by mouth once daily. cyclobenzaprine (FLEXERIL) 10 mg tablet Take 1 tablet by mouth three times daily as needed for muscle spasm. atorvastatin (LIPITOR) 80 mg tablet TAKE 1 TABLET EVERY DAY losartan (COZAAR) 25 mg tablet TAKE 1 TABLET EVERY DAY citalopram (CELEXA) 20 mg tablet Take 0.5 tablets by mouth once daily. Ascorbic Acid (VITAMIN C) 1,000 mg tablet Take 1 tablet by mouth once daily. STIOLTO RESPIMAT 2.5-2.5 mcg/actuation INHALE 2 PUFFS ONE TIME DAILY INSTRUCTED MAGNESIUM ORAL Take 500 mg by mouth once daily. Glucosamine 1,000 mg tab Take by mouth once daily. ranolazine ER (RANEXA) 500 mg 12 hr tablet Take 1 tablet by mouth twice daily. nitroglycerin sublingual (NITROQUICK) 0.4 mg SL tablet Dissolve 0.4 mg under the tongue every 5 minutes as needed. sodium chloride-aloe vera (AYR GEL W/ALOE) topical nasal gel by INTRANASAL route as needed. Cholecalciferol, Vitamin D3, 1,000 unit cap Take 1 capsule by mouth once daily. aspirin, enteric coated 81 mg EC tablet Take 1 tablet by mouth once daily. Social History Tobacco Use Smoking status: Former Packs/day: 2.00 Years: 43.00 Additional pack years: 0.00 Total pack years: 86.00 Types: Cigarettes Quit date: 12/03/2014 Years since quittin.1 Smokeless tobacco: Never Tobacco comments: start age: 20 Vaping Use Vaping Use: Never used Substance Use Topics Alcohol use: Yes Comment: occasionally Drug use: No Family History Problem Relation Age of Onset other (leukemia) Mother 57 other (Myocardial infarction) Father 65 2 VT's of VT other (brain aneurysm) Maternal Grandfather 78 Ischemic Heart Disease Paternal Grandfather 50 unsure cause of PAST SURGICAL HISTORY Procedure Laterality Date CATARACT EXTRACTIO (more content not included)... [facility] 01-27-2023 Note HNO ID: [id number] Author: Migdalia Higgins RPFT Service: ? Author Type: Respiratory Therapist Type: Procedures Filed: 01/27/2023 1:01 PM Note Text: RESPIRATORY THERAPY OXIMETRY WITH AMBULATION Oximetry with Ambulation Test for This Encounter O2 Device O2 Adapter NC O2 Flow SpO2% HR Activity Ft Walked (ft) Time (min) Avg Speed (MPH) R/A 97 90 Resting R/A 96 101 Walking, usual pace 565 3 2.14 R/A 96 119 Walking, fastest pace 725 3 2.75 General Information Pulse Oximetry Site Total Time Spent O2 Supply Carrier Walking Assistance/Device R Index Finger 30 -- None NAME: SARAH Joshi PATIENT NAME: Иван Agosto DATE: January 27, 2023 TIME: 1:01 PM Comment: [facility] 01-27-2023 Note HNO ID: [id number] Author: Migdalia Higgins RPFT Service: ? Author Type: Respiratory Therapist Type: Progress Notes Filed: 01/27/2023 1:01 PM Note Text: PULM FUNCTION SMARTBLOCK: Provider: Kesha Cerda MD Assisting Tech: Migdalia Higgins RPFT Spirometry: 1 Oximetry - Ambulation: 1 [facility] 01-26-2023 Miscellaneous Notes [employer] message sent to pt notifying him of results and recommendations from Provider. Pt already scheduled for 6 months. Notified to complete labs 1 week prior to visit fasting. Raissa Medeiros Ma Please let the patient know that his Hgb A1c was okay at 5.8%. Cholesterol is good. Other labs are okay. Repeat labs in 6 months with visit. Melyssa Shell APRN.REMY documented in this encounter [facility] 01-25-2023 Note HNO ID: [id number] Author: Melyssa Shell APRN.CNP Service: ? Author Type: Nurse Practitioner Type: Progress Notes Filed: 01/25/2023 11:12 AM Note Text: Chief Complaint Patient presents with: Follow Up HPI Иван Agosto is a 72 year old male who presents here today for Chronic Medical Conditions. Labs are in process at the time of this encounter. Discussed with patient that we can relay results and recommendations when they are final. Patient taking prescribed Bigelow for chronic back pain. Doing well overall. Allows him to perform ADLs, function on a daily basis. Was able to go to [place]. Elevated glucose: Hemoglobin A1c is in process. He is not on any medication for prediabetes. COPD: Patient taking prescribed inhalers without difficulty. No recent hospitalizations related to COPD exacerbations. He does not use the Stioloto very often. Anxiety/Depression: Doing okay with Celexa. Following with [facility] for CAD. Past medical history, appointments, medications, allergies reviewed. EXAM: BP 140/82 Pulse 88 Resp 16 Wt 126.6 kg (279 lb) SpO2 96% BMI 40.03 kg/m? General Appearance: Well appearing, alert, in no acute distress, well-hydrated, well nourished.. Lungs: Lungs clear to auscultation. No wheezing, rhonchi, rales.. Heart: RRR without murmur, gallop, or rubs. No ectopy. ASSESSMENT/PLAN: 1. Stage 1 mild COPD by GOLD classification (HCC) - ICD9: 496, ICD10: J44.9 (primary diagnosis) -Continue following with pulmonary. 2. SPINAL STENOSIS-LUMBAR - ICD9: 724.02, ICD10: M48.061 -Stable, continue with current Bigelow regimen. - HYDROCODONE 5 MG-ACETAMINOPHEN 325 MG TABLET 3. LUMB DISC DIS W MYELOPAT - ICD9: 722.73, ICD10: M51.06 -see #2 - HYDROCODONE 5 MG-ACETAMINOPHEN 325 MG TABLET 4. Elevated glucose - ICD9: 790.29, ICD10: R73.09 -Hemoglobin A1c in process 5. Anxiety and depression - ICD9: 300.00, 311, ICD10: F41.9, F32.A -Continue Celexa as prescribed 6. Hyperlipidemia LDL goal <100 - ICD9: 272.4, ICD10: E78.5 - Control undetermined, due for labs - Continue current medications - Counseled on healthy diet and regular exercise 7. Essential hypertension, benign - ICD9: 401.1, ICD10: I10 - Controlled - Continue current medications - Recommend home blood pressure monitoring, to bring results to next visit - Encouraged sodium restriction, DASH or Mediterranean diet - Recommend regular aerobic exercise 8. Encounter for immunization - ICD9: V03.89, ICD10: Z23 - INFLUENZA VACCINE, PRSV FREE, AGE 65+ YR, HIGH DOSE, QUADRIVALENT (FLUZONE HIGH-DOSE) Melyssa Shell APRN.PROGRAM COUNSELOR RTO in 6 months, sooner if needed. This note was partly generated using [employer] voice recognition dictation and may contain some misspelled or inaccurate words missed on review. [facility] 01-11-2023 Miscellaneous Notes [facility] website checked and validated. All prescriptions have been APPROPRIATELY filled. No suspicious activity was identified. 01/11/2023 by Melyssa Shell APRN.CNP The following approved medication requests have been transmitted electronically. Requested Prescriptions Signed Prescriptions Disp Refills HYDROcodone-acetaminophen (NORCO) 5-325 mg per tablet 30 tablet 0 Sig: Take 1 tablet by mouth every 8 hours as needed for pain for up to 30 days. Do not fill before February 13, 2023. Melyssa Shell APRN.REMY documented in this encounter [facility] 01-05-2023 Miscellaneous Notes The following approved medication requests have been transmitted electronically. Requested Prescriptions Pending Prescriptions Disp Refills clopidogrel (PLAVIX) 75 mg tablet 90 tablet 3 Sig: Take 1 tablet by mouth once daily. isosorbide mononitrate ER (IMDUR) 30 mg 24 hr tablet 90 tablet 3 Sig: Take 1 tablet by mouth once daily. Melyssa Shell APRN.CNP Patient phones requesting refills as follows: Requested Prescriptions Pending Prescriptions Disp Refills clopidogrel (PLAVIX) 75 mg tablet 90 tablet 3 Sig: Take 1 tablet by mouth once daily. isosorbide mononitrate ER (IMDUR) 30 mg 24 hr tablet 90 tablet 3 Sig: Take 1 tablet by mouth once daily. [facility]-10/29/22 Labs-07/15/22 NOV-01/25/23 Please review and advise. Maria D Au LPN documented in this encounter [facility] 01-05-2023 Miscellaneous Notes The following approved medication requests have been transmitted electronically. Requested Prescriptions Pending Prescriptions Disp Refills metFORMIN ER (GLUCOPHAGE XR) 500 mg 24 hr tablet 60 tablet 11 Sig: Take 1 tablet by mouth twice daily with meals. Melyssa Shell APRN.CNP Patient has been identified by name and date of : Yes Requested Prescriptions Pending Prescriptions Disp Refills metFORMIN ER (GLUCOPHAGE XR) 500 mg 24 hr tablet 60 tablet 11 Sig: Take 1 tablet by mouth twice daily with meals. RX INSTRUCTIONS: Patient aware RX will be sent to pharmacy. No need to notify patient. Patient last office visit: 10/29/22 Patient next office visit: 01/25/23 Marjorie Robison MA documented in this encounter [facility] 12-23-2022 Miscellaneous Notes The following approved medication requests have been transmitted electronically. Requested Prescriptions Pending Prescriptions Disp Refills gabapentin (NEURONTIN) 300 mg capsule 90 capsule 2 Sig: Take 1 capsule by mouth three times daily for 90 days. Melyssa Shell APRN.CNP Medication refill requested by Pharmacy Requested Prescriptions Pending Prescriptions Disp Refills gabapentin (NEURONTIN) 300 mg capsule 90 capsule 2 Sig: Take 1 capsule by mouth three times daily for 90 days. Last encounter with this provider: 07/27/2022 Next appt: 01/25/2023 Myrna Aguila RN documented in this encounter [facility] 12-22-2022 Miscellaneous Notes Faxed. Luisa Lucero Ma Type of letter/form/fax request - BABS supplies Form received from fax on 1 floor and placed on MD desk (Dr. Hurtado) for completion. Completed form needs to be faxed to [employer] at [phone]. Requesting F2F note discussing use of BABS machine. Do not see any mention of BABS in his last 2 OV with PCP or Melyssa Shell. Route to [place] when form completed for processing documented in this encounter [facility] 12-17-2022 Miscellaneous Notes Faxed to [employer]. Pt notified via [employer]. Luisa Lucero Ma CPAP order printed Anuradha Hurtado MD documented in this encounter [facility] 12-14-2022 Miscellaneous Notes Pt notified via [employer]. Luisa Lucero Ma OK to refill as ordered Rxs done for 2 months Anuradha Hurtado MD Patient has been identified by name and date of : Yes Patient phones for refill(s): Requested Prescriptions Pending Prescriptions Disp Refills HYDROcodone-acetaminophen (NORCO) 5-325 mg per tablet 30 tablet 0 Sig: Take 1 tablet by mouth every 8 hours as needed for pain for up to 30 days. Date of last office visit in primary care: LINDA (VV) 10/29/22 NOV 01/25/23 Last 2 Encounter Wt Readings: Date: Wt: 07/27/2022 132.9 kg (293 lb) 07/13/2022 133.8 kg (295 lb) Please advise. Thank you. TAMMY Welch documented in this encounter [facility] 11-12-2022 Miscellaneous Notes OK to refill as ordered Anuradha Hurtado MD Last office visit: 10/29/22 F/u scheduled: 01/25/23 Last refilled on: Bigelow #30 on 10/13/22 Luisa Lucero Ma documented in this encounter [facility] 10-29-2022 Note HNO ID: [id number] Author: Anuradha Hurtado MD Service: ? Author Type: Physician Type: Progress Notes Filed: 10/29/2022 11:58 AM Note Text: Chief Complaint Patient presents with: Follow Up HPI: This Team Access Model visit is a virtual/phone encounter. It required patient-provider interaction for the medical decision making as documented below. Patient was offered a virtual/telemedicine appointment in lieu of an office visit due to recommendations to reduce patient exposure to COVID-19. Patient is aware of limitations of performing the visit without a face to face visit in the office setting and agrees. I have communicated my name and active licensure. The patient's identity and physical location were verified at the time of this visit. Either the patient or their legal key account representative has been informed of the risks and benefits of -- and alternatives to -- treatment through a remote evaluation and consents to proceed with the evaluation remotely. Pt here for medication follow up. Last OV was in July with Melyssa Shell. No bowel, Gi, or urinary issues. DM: Denies checking sugars at home or having low blood sugars at home. Denies any neuropathy symtpoms. Taking Metformin xr 500 mg daily. Lipid/CAD: Taking Lipitor 80 mg and Plavix 75 mg daily. Tries to watch diet. Tolerating mediation well. COPD: Follows with Pulm who prescribes pt inhalers. He feels the inhalers are working well for him. Breathing overall stable, does have sob. HTN: Follows with Cardio at [facility]. Denies checking BP at home regularly. Denies any chest pain, dizziness or unusual SOB. Currently taking Toprol xl 25 mg daily, Imdur 30 mg daily, Losartan 25 mg daily. Also taking Renaxa 500 mg BID. CATE/Depression: Stable with Celexa 20 mg, half pill daily. No longer on Vistaril as it didn't help. Has used Xanax in the past. Pain: Chronic in lower back and b/l shoulders; taking Gabapentin 300 mg 1 pill TID, Flexeril 10 mg TID prn, Mobic 15 mg daily for the pain. Pt was given Bigelow #30 on 10/13/22 by PCP. He was getting pain medication from Orthopedics, but he had shoulder surgery and is done seeing them. Now his pain is in his back. Using #30 Bigelow/month; OK with this amount. Some days are better than others. Past medical history, appointments, medications, allergies reviewed. Previous Medical History PAST MEDICAL HISTORY Diagnosis Date Anxiety and depression 07/01/2015 ASHD (arteriosclerotic heart disease) 11/21/2010 stent CKD (chronic kidney disease) stage 3, GFR 30-59 ml/min ([facility]) 07/23/2016 COPD (chronic obstructive pulmonary disease) ([facility]) History of COVID-19 HTN (hypertension) HYPERLIPIDEMIA NEC/NOS 10/16/2005 Incisional hernia 03/02/2013 Inguinal hernia 07/25/2013 Internal hemorrhoids without mention of complication Left inguinal hernia 09/05/[address] Multiple lung nodules on CT 01/31/202101/2021 CT showing bilateral nodules, ground glass, repeat CT of chest in 6 months ordered Obstructive sleep apnea syndrome 07/01/2015 CPAP Other anxiety states S/P angioplasty with stent S/P CABG x 4 09/28/2012 FIGUEROA-LAD, SVG PDA, SVG Ramus and SVG Distal OM Tobacco use disorder 06/01/2007 Previous Surgical History PAST SURGICAL HISTORY Procedure Laterality Date CATARACT EXTRACTION HX COLONOSCOPY FLX DX W/COLLJ SPEC WHEN PFRMD 03/15/2006 Colonoscopy COLONOSCOPY FLX DX W/COLLJ SPEC WHEN PFRMD 09/03/2014 Colonoscopy CORONARY ARTERY BYP W/VEIN AND ARTERY GRAFT 4 VEIN 09/28/2012 FIGUEROA- LAD, SVG PDA, SVG Ramus, SVG distal OM1 CORONARY STENT EA VESSEL 10/01/2010 single stent HEART SURGERY HX IMPLANT MESH OPN HERNIA RPR/DEBRIDEMENT CLOSURE 03/02/2013 LAPAROSCOPY SURG RPR INITIAL INGUINAL HERNIA 09/05/2013 left PAST SURGICAL HISTORY OF 10/20/2000 Exc. mole right lower back PAST SURGICAL HISTORY OF Left 04/30/2022 Left shoulder reversal, rotator cuff tear PT ED ORTHOPAEDICS Left 04/30/2022 Torn rotator cuff- shoulder reversal REPAIR FIRST ABDOMINAL WALL HERNIA 03/02/2013 STRESS TEST 11/29/2014 [facility] - see scanned documents TONSILLECTOMY HX Family History FAMILY HISTORY Problem Relation Age of Onset other (leukemia) Mother 57 other (Myocardial infarction) Father 65 2 VT's of [place] other (brain aneurysm) Maternal Grandfather 78 Ischemic Heart Disease Paternal Grandfather 50 unsure cause of Patient Allergies ALLERGIES No Known Allergies Current Medications Current Outpatient Medications on File Prior to Visit Medication Sig HYDROcodone-acetaminophen (NORCO) 5-325 mg per tablet Take 1 tablet by mouth every 8 hours as needed for pain for up to 30 days. meloxicam (MOBIC) 15 mg tablet Take 1 tablet by mouth once daily. gabapentin (NEURONTIN) 300 mg capsule Take 1 capsule by mouth three times daily for 90 days. metoprolol succinate ER (TOPROL XL) 25 mg 24 hr tablet Take 1 tablet by mouth once daily. cyclobenzaprine (FLEXERIL) 10 mg tab (more content not included)... [facility] 10-29-2022 History of Present illness Narrative Chief Complaint Patient presents with: Follow Up HPI: This Team Access Model visit is a virtual/phone encounter. It required patient-provider interaction for the medical decision making as documented below. Patient was offered a virtual/telemedicine appointment in lieu of an office visit due to recommendations to reduce patient exposure to COVID-19. Patient is aware of limitations of performing the visit without a face to face visit in the office setting and agrees. I have communicated my name and active licensure. The patient's identity and physical location were verified at the time of this visit. Either the patient or their legal key account representative has been informed of the risks and benefits of -- and alternatives to -- treatment through a remote evaluation and consents to proceed with the evaluation remotely. Pt here for medication follow up. Last OV was in July with Melyssa Shell. No bowel, Gi, or urinary issues. DM: Denies checking sugars at home or having low blood sugars at home. Denies any neuropathy symtpoms. Taking Metformin xr 500 mg daily. Lipid/CAD: Taking Lipitor 80 mg and Plavix 75 mg daily. Tries to watch diet. Tolerating mediation well. COPD: Follows with Pulm who prescribes pt inhalers. He feels the inhalers are working well for him. Breathing overall stable, does have sob. HTN: Follows with Cardio at [facility]. Denies checking BP at home regularly. Denies any chest pain, dizziness or unusual SOB. Currently taking Toprol xl 25 mg daily, Imdur 30 mg daily, Losartan 25 mg daily. Also taking Renaxa 500 mg BID. CATE/Depression: Stable with Celexa 20 mg, half pill daily. No longer on Vistaril as it didn't help. Has used Xanax in the past. Pain: Chronic in lower back and b/l shoulders; taking Gabapentin 300 mg 1 pill TID, Flexeril 10 mg TID prn, Mobic 15 mg daily for the pain. Pt was given Bigelow #30 on 10/13/22 by PCP. He was getting pain medication from Orthopedics, but he had shoulder surgery and is done seeing them. Now his pain is in his back. Using #30 Bigelow/month; OK with this amount. Some days are better than others. Past medical history, appointments, medications, allergies reviewed. Previous Medical History PAST MEDICAL HISTORY Diagnosis Date Anxiety and depression 07/01/2015 ASHD (arteriosclerotic heart disease) 11/21/2010 stent CKD (chronic kidney disease) stage 3, GFR 30-59 ml/min ([facility]) 07/23/2016 COPD (chronic obstructive pulmonary disease) ([facility]) History of COVID-19 HTN (hypertension) HYPERLIPIDEMIA NEC/NOS 10/16/2005 Incisional hernia 03/02/2013 Inguinal hernia 07/25/2013 Internal hemorrhoids without mention of complication Left inguinal hernia 09/05/[address] Multiple lung nodules on CT 01/31/202101/2021 CT showing bilateral nodules, ground glass, repeat CT of chest in 6 months ordered Obstructive sleep apnea syndrome 07/01/2015 CPAP Other anxiety states S/P angioplasty with stent S/P CABG x 4 09/28/2012 FIGUEROA-LAD, SVG PDA, SVG Ramus and SVG Distal OM Tobacco use disorder 06/01/2007 Previous Surgical History PAST SURGICAL HISTORY Procedure Laterality Date CATARACT EXTRACTION HX COLONOSCOPY FLX DX W/COLLJ SPEC WHEN PFRMD 03/15/2006 Colonoscopy COLONOSCOPY FLX DX W/COLLJ SPEC WHEN PFRMD 09/03/2014 Colonoscopy CORONARY ARTERY BYP W/VEIN & ARTERY GRAFT 4 VEIN 09/28/2012 FIGUEROA- LAD, SVG PDA, SVG Ramus, SVG distal OM1 CORONARY STENT EA VESSEL 10/01/2010 single stent HEART SURGERY HX IMPLANT MESH OPN HERNIA RPR/DEBRIDEMENT CLOSURE 03/02/2013 LAPAROSCOPY SURG RPR INITIAL INGUINAL HERNIA 09/05/2013 left PAST SURGICAL HISTORY OF 10/20/2000 Exc. mole right lower back PAST SURGICAL HISTORY OF Left 04/30/2022 Left shoulder reversal, rotator cuff tear PT ED ORTHOPAEDICS Left 04/30/2022 Torn rotator cuff- shoulder reversal REPAIR FIRST ABDOMINAL WALL HERNIA 03/02/2013 STRESS TEST 11/29/2014 [facility] - see scanned documents TONSILLECTOMY HX Family History FAMILY HISTORY Problem Relation Age of Onset other (leukemia) Mother 57 other (Myocardial infarction) Father 65 2 VT's of [place] other (brain aneurysm) Maternal Grandfather 78 Ischemic Heart Disease Paternal Grandfather 50 unsure cause of Patient Allergies ALLERGIES No Known Allergies Current Medications Current Outpatient Medications on File Prior to Visit Medication Sig HYDROcodone-acetaminophen (NORCO) 5-325 mg per tablet Take 1 tablet by mouth every 8 hours as needed for pain for up to 30 days. meloxicam (MOBIC) 15 mg tablet Take 1 tablet by mouth once daily. gabapentin (NEURONTIN) 300 mg capsule Take 1 capsule by mouth three times daily for 90 days. metoprolol succinate ER (TOPROL XL) 25 mg 24 hr tablet Take 1 tablet by mouth once daily. cyclobenzaprine (FLEXERIL) 10 mg tablet Take 1 tablet by mouth three times daily as needed for muscle spasm. clopidogrel (PLAVIX) 75 mg tablet TAKE 1 TABLET EVERY DAY isosorbide mononitrate ER (IMDUR) 30 mg 24 hr tablet TAKE 1 TABLET EVERY DAY atorvastatin (LIPITOR) 80 mg tablet TAKE 1 TABLET EVERY DAY losartan (COZAAR) 25 mg tablet TAKE 1 TABLET EVERY DAY metFORMIN ER (GLUCOPHAGE XR) 500 mg 24 hr tablet Take 1 tablet by mouth twice daily with meals. citalopram (CELEXA) 20 mg tablet Take 0.5 tablets by mouth once daily. Ascorbic Acid (VITAMIN C) 1,000 mg tablet Take 1 tablet by mouth once daily. STIOLTO RESPIMAT 2.5-2.5 mcg/actuation INHALE 2 PUFFS ONE TIME DAILY INSTRUCTED MAGNESIUM ORAL Take 500 mg by mouth once daily. Glucosamine 1,000 mg tab Take by mouth once daily. ranolazine ER (RANEXA) 500 mg 12 hr tablet Take 1 tablet by mouth twice daily. nitroglycerin sublingual (NITROQUICK) 0.4 mg SL tablet Dissolve 0.4 mg under the tongue every 5 minutes as needed. sodium chloride-aloe vera (AYR GEL W/ALOE) topical nasal gel by INTRANASAL route as needed. Cholecalciferol, Vitamin D3, 1,000 unit cap Take 1 capsule by mouth once daily. aspirin, enteric coated 81 mg EC tablet Take 1 tablet by mouth once daily. No current facility-administered medications on file prior to visit. Social History Social History Tobacco Use Smoking status: Former Packs/day: 2.00 Years: 43.00 Pack years: 86.00 Types: Cigarettes Quit date: 12/03/2014 Years since quittin.9 Smokeless tobacco: Never Tobacco comments: start age: 20 Vaping Use Vaping Use: Never used Substance Use Topics Alcohol use: Yes Comment: occasionally Drug use: No EXAM: There were no vitals taken for this visit. Health Maintenance List ABDOMINAL AORTIC ANEURYSM SCREENING Never done ALPHA-1 ANTITRYPSIN DEFICIENCY SCREENING Never done ADVANCE DIRECTIVE DISCUSSION due on 05/03/2022 BP CONTROLLED (<130/80) due on 10/16/2022 LUNG CANCER SCREENING due on 07/10/2023 LDL CHOLESTEROL due on 07/16/2023 ANNUAL PCP TEAM CHRONIC DISEASE VISIT due on 07/28/2023 COLORECTAL CANCER SCREENING due on 09/03/2024 DIABETES SCREEN due on 07/15/2025 LIPID SCREEN due on 07/16/2027 DTAP,TDAP,TD(4 - Td or Tdap) due on 05/27/2031 SPIROMETRY Completed INFLUENZA Completed DEPRESSION ASSESSMENT Completed HEPATITIS C SCREENING Completed SHINGRIX VACCINE Completed COVID-19 VACCINE Completed PNEUMOCOCCAL: 65+ Completed Data reviewed None ASSESSMENT/PLAN: 1. Essential hypertension, benign - ICD9: 401.1, ICD10: I10 (primary diagnosis) - Controlled - Continue current medications - Recommend home blood pressure monitoring, to bring results to next visit - Encouraged sodium restriction, DASH or Mediterranean diet - Recommend regular aerobic exercise 2. SPINAL STENOSIS-LUMBAR - ICD9: 724.02, ICD10: M48.061 Continue with Bigelow #30/month; discussed the goal of getting off this completely in the future 3. LUMB DISC DIS W MYELOPAT - ICD9: 722.73, ICD10: M51.06 4. Hyperlipidemia LDL goal <100 - ICD9: 272.4, ICD10: E78.5 5. Anxiety and depression - ICD9: 300.00, 311, ICD10: F41.9, F32.A Continue current medications. 6. Impaired fasting glucose - ICD9: 790.21, ICD10: R73.01 7. Elevated glucose - ICD9: 790.29, ICD10: R73.09 8. Stage 1 mild COPD by GOLD classification (HCC) - ICD9: 496, ICD10: J44.9 Follow up in 3 months with labs Anuradha Hurtado MD documented in this encounter [facility] 08-27-2022 Miscellaneous Notes Spoke with pt and information listed below given. Pt verbalizes understanding. Cherelle Fagan LPN He is getting pain meds from Dr Bass, so I cannot give additional medication Anuradha Hurtado MD Patient phones requesting refills as follows: Requested Prescriptions Pending Prescriptions Disp Refills HYDROcodone-acetaminophen (NORCO) 5-325 mg per tablet 30 tablet 0 Sig: Take 1 tablet by mouth every 8 hours as needed for pain for up to 30 days. LINDA-07/27/22 Labs-07/15/22 NOV-01/25/23 Please review and advise. Maria D Au LPN documented in this encounter [facility] 08-10-2022 Miscellaneous Notes The following approved medication requests have been transmitted electronically. Requested Prescriptions Pending Prescriptions Disp Refills metoprolol succinate ER (TOPROL XL) 25 mg 24 hr tablet 90 tablet 3 Sig: Take 1 tablet by mouth once daily. Melyssa Shell APRN.CNP documented in this encounter [facility] 08-10-2022 Miscellaneous Notes The following approved medication requests have been transmitted electronically. Requested Prescriptions Pending Prescriptions Disp Refills gabapentin (NEURONTIN) 300 mg capsule 90 capsule 2 Sig: Take 1 capsule by mouth three times daily for 90 days. Melyssa Shell APRN.CNP documented in this encounter [facility] 08-06-2022 Note HNO ID: [id number] Author: Kesha Cerda MD Service: ? Author Type: Physician Type: Progress Notes Filed: 08/06/2022 2:17 PM Note Text: Date of test 07/29/2022: Testing time 9 hours and 49 minutes Lowest SPO2 87% Total time SPO2 less than 88% 16 seconds CPAP adequate [facility] 08-06-2022 History of Present illness Narrative Date of test 07/29/2022: Testing time 9 hours and 49 minutes Lowest SPO2 87% Total time SPO2 less than 88% 16 seconds CPAP adequate documented in this encounter [facility] 07-27-2022 Note HNO ID: [id number] Author: Melyssa Shell APRN.CNP Service: ? Author Type: Nurse Practitioner Type: Progress Notes Filed: 07/27/2022 1:46 PM Note Text: Chief Complaint Patient presents with: F/U 6 months HPI Иван Agosto is a 72 year old male who presents here today for Chronic Medical Conditions. follow up for chronic pain, hyperlipidemia, ASHD, COPD, anxiety depression, prediabetes, hypertension. Prescribed Bigelow as needed for chronic pain. Also taking gabapentin, Flexeril, meloxicam. Pain is located in lower back, shoulders. HYPERLIPIDEMIA: Patient is taking medications: Yes. Patient is watching diet: Yes. Patient denies myalgias: Yes. Patient denies gi upset: Yes Taking metformin 500 mg XR once daily for prediabetes. Following with pulmonary for COPD. Prescribed inhalers, using as directed. Had mention some increased shortness of breath at recent visit with pulmonology. More testing being completed. Follows with [facility] for heart disease, hypertension. Does not check blood pressure at home. Denies any chest pain, dizziness. Anxiety and depression: Prescribed Celexa, Vistaril. Vistaril doesn't really work. Previously on Xanax. Had shoulder surgery in April. Had a dislocation 3 days after surgery. He is in PHYSICAL THERAPY now. Past medical history, appointments, medications, allergies reviewed. EXAM: BP 127/82 Pulse 83 Temp 36.6 ?C (97.9 ?F) (Left Tympanic) Resp 16 Wt 132.9 kg (293 lb) SpO2 97% BMI 42.04 kg/m? General Appearance: Well appearing, alert, in no acute distress, well-hydrated, well nourished. and Overweight. Neck: Supple, no adenopathy; thyroid symmetric, normal size Lungs: Lungs clear to auscultation. No wheezing, rhonchi, rales.. Heart: RRR without murmur, gallop, or rubs. No ectopy. Abdomen: Normal abdominal exam, Abdomen soft, non-tender. Bowel sounds normal. No masses, organomegaly. Extremities: No deformities, edema Component Latest Ref Rng AND Units 07/15/2022 Protein, Total 6.3 - 8.0 g/dL 6.6 Albumin 3.9 - 4.9 g/dL 4.0 Calcium 8.5 - 10.2 mg/dL 9.5 Bilirubin, Total 0.2 - 1.3 mg/dL 0.6 Alkaline Phosphatase 38 - 113 U/L 77 AST 14 - 40 U/L 25 ALT 10 - 54 U/L 25 Glucose 74 - 99 mg/dL 102 (H) BUN 9 - 24 mg/dL 16 Creatinine 0.73 - 1.22 mg/dL 1.15 Sodium 136 - 144 mmol/L 138 Potassium 3.7 - 5.1 mmol/L 4.8 Chloride 97 - 105 mmol/L 102 CO2 22 - 30 mmol/L 27 Anion Gap 9 - 18 mmol/L 9 eGFR >=60 mL/min/1.73mA? 68 Cholesterol, Total <200 mg/dL 129 Triglyceride <150 mg/dL 98 HDL Cholesterol >39 mg/dL 54 Non HDL Cholesterol <130 mg/dL 75 Fasting Time hrs 13 VLDL Cholesterol <30 mg/dL 20 TC:HDL Ratio <5.10 2.39 LDL Cholesterol <100 mg/dL 55 LDL:HDL Ratio <2.54 1.02 Hemoglobin A1C 4.3 - 5.6 % 5.9 (H) Estimated Average Glucose mg/dL 123 ASSESSMENT/PLAN: 1. Stage 1 mild COPD by GOLD classification (HCC) - ICD9: 496, ICD10: J44.9 (primary diagnosis) -Stable, continue follow-up with pulmonary 2. SPINAL STENOSIS-LUMBAR - ICD9: 724.02, ICD10: M48.061 Stable, continue as needed use of Bigelow. - HYDROCODONE 5 MG-ACETAMINOPHEN 325 MG TABLET 3. LUMB DISC DIS W MYELOPAT - ICD9: 722.73, ICD10: M51.06 -Stable, continue as needed use Bigelow - HYDROCODONE 5 MG-ACETAMINOPHEN 325 MG TABLET 4. Hyperlipidemia LDL goal <100 - ICD9: 272.4, ICD10: E78.5 - good control - Continue current medication. - Encouraged following a low fat, low cholesterol diet. - Discussed the benefits of regular aerobic exercise and weight loss. - LIPID PANEL BASIC - COMP METABOLIC PANEL 5. Essential hypertension, benign - ICD9: 401.1, ICD10: I10 - good control - Continue current medication(s) - Recommended regular aerobic exercise. - Recommend home blood pressure monitoring, to bring results in on next visit - Goal of BP <130/80 - COMP METABOLIC PANEL 6. ASHD (arteriosclerotic heart disease) - ICD9: 414.00, ICD10: I25.10 Continue following with cardiology 7. Anxiety and depression - ICD9: 300.00, 311, ICD10: F41.9, F32.A -Stable, discussed trial of trazodone at night for sleep but patient declined. 8. Impaired fasting glucose - ICD9: 790.21, ICD10: R73.01 -Stable, continue metformin as prescribed. - HGB A1C Melyssa Shell APRN.PROGRAM COUNSELOR RTO in 6 months, sooner if needed. This note was partly generated using [employer] voice recognition dictation and may contain some misspelled or inaccurate words missed on review. [facility] 07-27-2022 History of Present illness Narrative Chief Complaint Patient presents with: F/U 6 months HPI Иван Agosto is a 72 year old male who presents here today for Chronic Medical Conditions. follow up for chronic pain, hyperlipidemia, ASHD, COPD, anxiety depression, prediabetes, hypertension. Prescribed Bigelow as needed for chronic pain. Also taking gabapentin, Flexeril, meloxicam. Pain is located in lower back, shoulders. HYPERLIPIDEMIA: Patient is taking medications: Yes. Patient is watching diet: Yes. Patient denies myalgias: Yes. Patient denies gi upset: Yes Taking metformin 500 mg XR once daily for prediabetes. Following with pulmonary for COPD. Prescribed inhalers, using as directed. Had mention some increased shortness of breath at recent visit with pulmonology. More testing being completed. Follows with [facility] for heart disease, hypertension. Does not check blood pressure at home. Denies any chest pain, dizziness. Anxiety and depression: Prescribed Celexa, Vistaril. Vistaril doesn't really work. Previously on Xanax. Had shoulder surgery in April. Had a dislocation 3 days after surgery. He is in PHYSICAL THERAPY now. Past medical history, appointments, medications, allergies reviewed. EXAM: BP 127/82 Pulse 83 Temp 36.6 C (97.9 F) (Left Tympanic) Resp 16 Wt 132.9 kg (293 lb) SpO2 97% BMI 42.04 kg/m General Appearance: Well appearing, alert, in no acute distress, well-hydrated, well nourished. and Overweight. Neck: Supple, no adenopathy; thyroid symmetric, normal size Lungs: Lungs clear to auscultation. No wheezing, rhonchi, rales.. Heart: RRR without murmur, gallop, or rubs. No ectopy. Abdomen: Normal abdominal exam, Abdomen soft, non-tender. Bowel sounds normal. No masses, organomegaly. Extremities: No deformities, edema Component Latest Ref Rng & Units 07/15/2022 Protein, Total 6.3 - 8.0 g/dL 6.6 Albumin 3.9 - 4.9 g/dL 4.0 Calcium 8.5 - 10.2 mg/dL 9.5 Bilirubin, Total 0.2 - 1.3 mg/dL 0.6 Alkaline Phosphatase 38 - 113 U/L 77 AST 14 - 40 U/L 25 ALT 10 - 54 U/L 25 Glucose 74 - 99 mg/dL 102 (H) BUN 9 - 24 mg/dL 16 Creatinine 0.73 - 1.22 mg/dL 1.15 Sodium 136 - 144 mmol/L 138 Potassium 3.7 - 5.1 mmol/L 4.8 Chloride 97 - 105 mmol/L 102 CO2 22 - 30 mmol/L 27 Anion Gap 9 - 18 mmol/L 9 eGFR >=60 mL/min/1.73m 68 Cholesterol, Total <200 mg/dL 129 Triglyceride <150 mg/dL 98 HDL Cholesterol >39 mg/dL 54 Non HDL Cholesterol <130 mg/dL 75 Fasting Time hrs 13 VLDL Cholesterol <30 mg/dL 20 TC:HDL Ratio <5.10 2.39 LDL Cholesterol <100 mg/dL 55 LDL:HDL Ratio <2.54 1.02 Hemoglobin A1C 4.3 - 5.6 % 5.9 (H) Estimated Average Glucose mg/dL 123 ASSESSMENT/PLAN: 1. Stage 1 mild COPD by GOLD classification (HCC) - ICD9: 496, ICD10: J44.9 (primary diagnosis) -Stable, continue follow-up with pulmonary 2. SPINAL STENOSIS-LUMBAR - ICD9: 724.02, ICD10: M48.061 Stable, continue as needed use of Bigelow. - HYDROCODONE 5 MG-ACETAMINOPHEN 325 MG TABLET 3. LUMB DISC DIS W MYELOPAT - ICD9: 722.73, ICD10: M51.06 -Stable, continue as needed use Bigelow - HYDROCODONE 5 MG-ACETAMINOPHEN 325 MG TABLET 4. Hyperlipidemia LDL goal <100 - ICD9: 272.4, ICD10: E78.5 - good control - Continue current medication. - Encouraged following a low fat, low cholesterol diet. - Discussed the benefits of regular aerobic exercise and weight loss. - LIPID PANEL BASIC - COMP METABOLIC PANEL 5. Essential hypertension, benign - ICD9: 401.1, ICD10: I10 - good control - Continue current medication(s) - Recommended regular aerobic exercise. - Recommend home blood pressure monitoring, to bring results in on next visit - Goal of BP <130/80 - COMP METABOLIC PANEL 6. ASHD (arteriosclerotic heart disease) - ICD9: 414.00, ICD10: I25.10 Continue following with cardiology 7. Anxiety and depression - ICD9: 300.00, 311, ICD10: F41.9, F32.A -Stable, discussed trial of trazodone at night for sleep but patient declined. 8. Impaired fasting glucose - ICD9: 790.21, ICD10: R73.01 -Stable, continue metformin as prescribed. - HGB A1C Melyssa Shell APRN.CNP RTO in 6 months, sooner if needed. This note was partly generated using [employer] voice recognition dictation and may contain some misspelled or inaccurate words missed on review. documented in this encounter [facility] 07-13-2022 Note HNO ID: [id number] Author: Kesha Cerda MD Service: ? Author Type: Physician Type: Progress Notes Filed: 07/13/2022 10:30 AM Note Text: . Respiratory [place] Note Patient name: Иван Agosto PCP: Anuradha Hurtado MD CC: Follow-up chest CT HPI: Иван Agosto 71 year old morbidly obese male former [id number] smoker and quit in 2014 with PMH significant for CAD s/p stents and CABG, CKD, HTN, HLD, BABS on CPAP, history of COVID 03/2020, mild COPD and abnormal chest CT with pulmonary nodularity and groundglass opacities. Last seen in office for pulmonary clearance prior to reverse shoulder surgery. Not issues with recent surgery. Therapy for COPD consists of Stiolto Respimat and as needed albuterol. Presents today for follow-up after chest CT. Was enrolled in lung cancer screening program at [place] with original CT in 2019. Chest CT shows stable mild reticulations, scarring, groundglass opacities consistent with his previous COVID infection. Small 2 to 3 mm right lung nodule and several left lower lobe lung nodules all stable. Today states he has noticed more SOB with activity. No associated, cough, chest pain or wheezing. No recent URI. Remains tobacco free. Compliant with CPAP use. DME: [employer] DATA: Labs: Most recent laboratory tests shows normal chemistry except for slightly elevated glucose at 112 and CBC significant for mild polycythemia H/H 16.7/50.4 Imaging / Diagnostic Studies: DATE OF EXAM: Jul 09 2022 10:13AM [facility] 0541 - CT CHEST WO IVCON / EXAMINATION: CHEST CT WITHOUT CONTRAST CLINICAL HISTORY: Lung nodules follow-up. Comparison: 08/01/2021. RESULT: Limitations: None. Lines, tubes, and devices: None. Lung parenchyma and airways: There are mild subpleural reticulations and tiny bilateral lung nodules are stable, for example: 3 mm nodule anterior right lung base (6:145), 2 mm subpleural right middle lobe nodule (6:84). There is no new nodule or infiltrate. Visualized airways are patent. Pleural space: No pleural effusion. No pleural thickening. Lower neck, lymph nodes, and mediastinum: The imaged thyroid gland is normal. No lymphadenopathy in the supraclavicular, axillary, mediastinal, or hilar regions. Heart, pericardium, and thoracic vessels: Thoracic aorta and main pulmonary artery are normal in caliber. There are atherosclerotic calcifications in the thoracic aorta and coronary arteries. There is evidence of prior CABG. The heart size is normal. There is no pericardial effusion. Bones and soft tissues: No destructive bone lesion. Chest wall is unremarkable. Upper abdomen: Cholelithiasis. Diffuse fatty liver infiltration. IMPRESSION: Stable mild subpleural reticulations and tiny bilateral lung nodules. No new or acute findings. I personally reviewed the images as well as with the patient which shows stable images PAST MEDICAL HISTORY Diagnosis Date Anxiety and depression 07/01/2015 ASHD (arteriosclerotic heart disease) 11/21/2010 stent CKD (chronic kidney disease) stage 3, GFR 30-59 ml/min (HCC) 07/23/2016 COPD (chronic obstructive pulmonary disease) (HCC) History of COVID-19 HTN (hypertension) HYPERLIPIDEMIA NEC/NOS 10/16/2005 Incisional hernia 03/02/2013 Inguinal hernia 07/25/2013 Internal hemorrhoids without mention of complication Left inguinal hernia 09/05/2013 Multiple lung nodules on CT 01/31/202101/2021 CT showing bilateral nodules, ground glass, repeat CT of chest in 6 months ordered Obstructive sleep apnea syndrome 07/01/2015 CPAP Other anxiety states S/P angioplasty with stent S/P CABG x 4 09/28/2012 FIGUEROA-LAD, SVG PDA, SVG Ramus and SVG Distal OM Tobacco use disorder 06/01/2007 ALLERGIES No Known Allergies HYDROcodone-acetaminophen (NORCO) 5-325 mg per tablet Take 1 tablet by mouth every 8 hours as needed for pain for up to 30 days. cyclobenzaprine (FLEXERIL) 10 mg tablet Take 1 tablet by mouth three times daily as needed for muscle spasm. gabapentin (NEURONTIN) 300 mg capsule Take 1 capsule by mouth three times daily for 90 days. clopidogrel (PLAVIX) 75 mg tablet TAKE 1 TABLET EVERY DAY isosorbide mononitrate ER (IMDUR) 30 mg 24 hr tablet TAKE 1 TABLET EVERY DAY atorvastatin (LIPITOR) 80 mg tablet TAKE 1 TABLET EVERY DAY losartan (COZAAR) 25 mg tablet TAKE 1 TABLET EVERY DAY metFORMIN ER (GLUCOPHAGE XR) 500 mg 24 hr tablet Take 1 tablet by mouth twice daily with meals. citalopram (CELEXA) 20 mg tablet Take 0.5 tablets by mouth once daily. metoprolol succinate ER (TOPROL XL) 25 mg 24 hr tablet Take 1 tablet by mouth once daily. Ascorbic Acid (VITAMIN C) 1,000 mg tablet Take 1 tablet by mouth once daily. STIOLTO RESPIMAT 2.5-2.5 mcg/actuation INHALE 2 PUFFS ONE TIME DAILY INSTRUCTED hydrOXYzine pamoate (VISTARIL) 25 mg capsule Take 1-2 capsules by mouth three times daily as needed for anxiety. MAGNESIUM ORAL Take 500 (more content not included)... [facility] 07-13-2022 History of Present illness Narrative Images from the original note were not included. . Respiratory [place] Note Patient name: Иван Agosto PCP: Anuradha Hurtado MD CC: Follow-up chest CT HPI: Иван Agosto 71 year old morbidly obese male former [id number] smoker and quit in 2014 with PMH significant for CAD s/p stents and CABG, CKD, HTN, HLD, BABS on CPAP, history of COVID 03/2020, mild COPD and abnormal chest CT with pulmonary nodularity and groundglass opacities. Last seen in office for pulmonary clearance prior to reverse shoulder surgery. Not issues with recent surgery. Therapy for COPD consists of Stiolto Respimat and as needed albuterol. Presents today for follow-up after chest CT. Was enrolled in lung cancer screening program at [place] with original CT in 2019. Chest CT shows stable mild reticulations, scarring, groundglass opacities consistent with his previous COVID infection. Small 2 to 3 mm right lung nodule and several left lower lobe lung nodules all stable. Today states he has noticed more SOB with activity. No associated, cough, chest pain or wheezing. No recent URI. Remains tobacco free. Compliant with CPAP use. DME: [employer] DATA: Labs: Most recent laboratory tests shows normal chemistry except for slightly elevated glucose at 112 and CBC significant for mild polycythemia H/H 16.7/50.4 Imaging / Diagnostic Studies: DATE OF EXAM: Jul 09 2022 10:13AM [facility] 0541 - CT CHEST WO IVCON / EXAMINATION: CHEST CT WITHOUT CONTRAST CLINICAL HISTORY: Lung nodules follow-up. Comparison: 08/01/2021. RESULT: Limitations: None. Lines, tubes, and devices: None. Lung parenchyma and airways: There are mild subpleural reticulations and tiny bilateral lung nodules are stable, for example: 3 mm nodule anterior right lung base (6:145), 2 mm subpleural right middle lobe nodule (6:84). There is no new nodule or infiltrate. Visualized airways are patent. Pleural space: No pleural effusion. No pleural thickening. Lower neck, lymph nodes, and mediastinum: The imaged thyroid gland is normal. No lymphadenopathy in the supraclavicular, axillary, mediastinal, or hilar regions. Heart, pericardium, and thoracic vessels: Thoracic aorta and main pulmonary artery are normal in caliber. There are atherosclerotic calcifications in the thoracic aorta and coronary arteries. There is evidence of prior CABG. The heart size is normal. There is no pericardial effusion. Bones and soft tissues: No destructive bone lesion. Chest wall is unremarkable. Upper abdomen: Cholelithiasis. Diffuse fatty liver infiltration. IMPRESSION: Stable mild subpleural reticulations and tiny bilateral lung nodules. No new or acute findings. I personally reviewed the images as well as with the patient which shows stable images PAST MEDICAL HISTORY Diagnosis Date Anxiety and depression 07/01/2015 ASHD (arteriosclerotic heart disease) 11/21/2010 stent CKD (chronic kidney disease) stage 3, GFR 30-59 ml/min ([facility]) 07/23/2016 COPD (chronic obstructive pulmonary disease) ([facility]) History of COVID-19 HTN (hypertension) HYPERLIPIDEMIA NEC/NOS 10/16/2005 Incisional hernia 03/02/2013 Inguinal hernia 07/25/2013 Internal hemorrhoids without mention of complication Left inguinal hernia 09/05/2013 Multiple lung nodules on CT 01/31/202101/2021 CT showing bilateral nodules, ground glass, repeat CT of chest in 6 months ordered Obstructive sleep apnea syndrome 07/01/2015 CPAP Other anxiety states S/P angioplasty with stent S/P CABG x 4 09/28/2012 FIGUEROA-LAD, SVG PDA, SVG Ramus and SVG Distal OM Tobacco use disorder 06/01/2007 ALLERGIES No Known Allergies HYDROcodone-acetaminophen (NORCO) 5-325 mg per tablet Take 1 tablet by mouth every 8 hours as needed for pain for up to 30 days. cyclobenzaprine (FLEXERIL) 10 mg tablet Take 1 tablet by mouth three times daily as needed for muscle spasm. gabapentin (NEURONTIN) 300 mg capsule Take 1 capsule by mouth three times daily for 90 days. clopidogrel (PLAVIX) 75 mg tablet TAKE 1 TABLET EVERY DAY isosorbide mononitrate ER (IMDUR) 30 mg 24 hr tablet TAKE 1 TABLET EVERY DAY atorvastatin (LIPITOR) 80 mg tablet TAKE 1 TABLET EVERY DAY losartan (COZAAR) 25 mg tablet TAKE 1 TABLET EVERY DAY metFORMIN ER (GLUCOPHAGE XR) 500 mg 24 hr tablet Take 1 tablet by mouth twice daily with meals. citalopram (CELEXA) 20 mg tablet Take 0.5 tablets by mouth once daily. metoprolol succinate ER (TOPROL XL) 25 mg 24 hr tablet Take 1 tablet by mouth once daily. Ascorbic Acid (VITAMIN C) 1,000 mg tablet Take 1 tablet by mouth once daily. STIOLTO RESPIMAT 2.5-2.5 mcg/actuation INHALE 2 PUFFS ONE TIME DAILY INSTRUCTED hydrOXYzine pamoate (VISTARIL) 25 mg capsule Take 1-2 capsules by mouth three times daily as needed for anxiety. MAGNESIUM ORAL Take 500 mg by mouth once daily. Glucosamine 1,000 mg tab Take by mouth once daily. ranolazine ER (RANEXA) 500 mg 12 hr tablet Take 1 tablet by mouth twice daily. nitroglycerin sublingual (NITROQUICK) 0.4 mg SL tablet Dissolve 0.4 mg under the tongue every 5 minutes as needed. sodium chloride-aloe vera (AYR GEL W/ALOE) topical nasal gel by INTRANASAL route as needed. Cholecalciferol, Vitamin D3, 1,000 unit cap Take 1 capsule by mouth once daily. aspirin, enteric coated 81 mg EC tablet Take 1 tablet by mouth once daily. Social History Tobacco Use Smoking status: Former Packs/day: 2.00 Years: 43.00 Pack years: 86.00 Types: Cigarettes Quit date: 12/03/2014 Years since quittin.6 Smokeless tobacco: Never Tobacco comments: start age: 20 Vaping Use Vaping Use: Never used Substance Use Topics Alcohol use: Yes Comment: occasionally Drug use: No PMH, Social history, family history and surgical history reviewed and updated in EMR REVIEW OF SYSTEMS: CONSTITUTIONAL: No fevers, chills, nightsweats, unintended weight loss or weight gain HEENT: Denies nasal congestion/sinus symptoms CARDIOVASCULAR: No chest pain,palpitations, orthopnea, PND, edema. PULM: See HPI NEURO: No new balance problems, peripheral weakness/paresthesias or numbness of concern. Feels lightheaded in the morning. Has to rest on side of bed MUSC-SKEL: Arthritis pain PHYSICAL EXAMINATION: BP 124/82 Pulse 70 Resp 14 Ht 5' 10 (1.78m) Wt 295 lb (133.8kg) SpO2 98% BMI 42.33 kg/(m^2). General Appearance: Morbidly obese male, NAD Skin: Skin color, texture, turgor normal, no suspicious rashes or lesions. Head: Normocephalic, no masses, lesions, tenderness or abnormalities. Eyes: Sclera, conjunctiva normal Neck: No JVD, no masses, no adenopathy Lungs: Not labored, normal to percussion, no wheezes or crackles Heart: Regular rate and rhythm, no murmurs gallops Extremities: No edema clubbing Assessment/Plan: Mild COPD -Update Spirometry -Continue Stiolto Respimat for now Morbid obesity -Class 3 obesity, BMI 42 -Weight loss strongly advised Mild polycythemia -Check overnight oximetry on CPAP to assess adequacy of current settings -Ambulation oximetry Lung nodules -Stable over two years -Still qualifies for chest CT for screening due to past smoking Former cigarette smoker -Former 80 pack year smoker with sequelae of mild COPD -Due for annual lung cancer screening in July 2022 Kesha Cerda MD [facility] [place] documented in this encounter [facility] 07-09-2022 Note HNO ID: [id number] Author: RT Janet(Esteban) Service: ? Author Type: Embedded Software Developer Type: Progress Notes Filed: 07/09/2022 2:49 PM Note Text: Radiology Service Progress Note PATIENT NAME: Иван Agosto DATE OF SERVICE: July 09, 2022 TIME: 2:49 PM PATIENT IDENTITY VERIFICATION COMPLETED USING TWO (2) IDENTIFIERS: Name and Date of confirmed by patient verbally. FALL SCREENING: Has the patient had 2 falls in the last year or 1 fall with injury or currently using an Ambulatory Assistive Device (Walker, Cane, Wheelchair, Crutches, etc.)? No PATIENT GENDER DATA: Male PATIENT RELEVANT IMPLANT DATA REVIEWED: Yes RADIOLOGY DEPARTMENT: CT; Exam(s) Completed: Chest PERIPHERAL IV DATA: Not applicable SIGNED BY: RT Jack(R) July 09, 2022 2:49 PM [facility] 07-09-2022 History of Present illness Narrative Radiology Service Progress Note PATIENT NAME: Иван Agosto DATE OF SERVICE: July 09, 2022 TIME: 2:49 PM PATIENT IDENTITY VERIFICATION COMPLETED USING TWO (2) IDENTIFIERS: Name and Date of confirmed by patient verbally. FALL SCREENING: Has the patient had 2 falls in the last year or 1 fall with injury or currently using an Ambulatory Assistive Device (Walker, Cane, Wheelchair, Crutches, etc.)? No PATIENT GENDER DATA: Male PATIENT RELEVANT IMPLANT DATA REVIEWED: Yes RADIOLOGY DEPARTMENT: CT; Exam(s) Completed: Chest PERIPHERAL IV DATA: Not applicable SIGNED BY: RT Jack(Esteban) July 09, 2022 2:49 PM documented in this encounter [facility] 05-26-2022 Miscellaneous Notes Sent a oDesk message to let pt know his prescription was sent to the pharmacy. Cherelle Fagan LPN OK to refill as ordered Anuradha Hurtaod MD Last entry for medicaiton below was a med update. Please review and add qty and refills. Cherelle Fagan LPN Patient has been identified by name and date of : Yes, Provider Dr. Hurtado Date 05/26/22 Time 11:25 am Patient phones for refill(s): Requested Prescriptions Pending Prescriptions Disp Refills cyclobenzaprine (FLEXERIL) 10 mg tablet Sig: Take 1 tablet by mouth three times daily as needed for muscle spasm. Date of last office visit in primary care: 03/23/22 next apt 07/23/22 Last 2 Encounter Wt Readings: Date: Wt: 03/24/2022 133.4 kg (294 lb) 03/23/2022 133.8 kg (295 lb) Previous labs/tests for medication: Not applicable Thank you. Cherelle Fagan LPN documented in this encounter [facility] 03-24-2022 Note HNO ID: [id number] Author: Kesha Cerda MD Service: ? Author Type: Physician Type: Progress Notes Filed: 03/24/2022 12:24 PM Note Text: . Respiratory [place] Note Patient name: Иван Agosto PCP: Anuradha Hurtado MD CC: Follow-up COPD HPI: Иван Agosto 71 year old morbidly obese male former greater than [id number] smoker, quitting in 2014 with PMH significant for HTN, CAD status post stents and CABG, CKD, HDL, BABS on CPAP, mild COPD, history of COVID 03/2020, abnormal chest CT. Current therapy consists of Stiolto Respimat and as needed albuterol. Chest CT showed pulmonary nodularity and groundglass opacities which have remained stable. Last Chest CT 08/2021. At last office visit, he did not feel that Stiolto was helpful. Plan was to hold Stiolto Respimat and only use albuterol as needed. Weight loss strongly encouraged. Recently ill with pneumonia. Symptoms at that time SOB, wheezing, cough with discolored sputum. Really noticed a difference since he had been off his Stiolto Respimat which he restarted. Seen at Urgent Care where chest x-ray showed faint infiltrate left lower lobe. Treated with antibiotics and steroids. Currently back to his baseline. Denies cough, wheezing, chest pain or significant dyspnea. Scheduled for shoulder reversal at the end of April, Dr. Tyrone Bass. Needs pulmonary clearance. DATA: PFT: Imaging / Diagnostic Studies: DATE OF EXAM: Mar 09 2022 1:46PM [facility] [id number] - XR CHEST 2V FRONTAL/LAT / EXAMINATION: CHEST RADIOGRAPH (2 VIEW FRONTAL AND LATERAL) CLINICAL HISTORY: Acute cough MQ: XC2_6 EXAM DATE/TIME: 03/09/2022 1:46 PM COMPARISON: This x-ray dated August 25, 2011 RESULT: Lines, tubes, and devices: None. Lungs and pleura: Mild opacity at the left base. No pleural effusion or pneumothorax. Cardiomediastinal silhouette: Cardiomediastinal silhouette stable in size. Postsurgical changes from median sternotomy. Bones and soft tissues: Degenerative changes are present within the thoracic spine. IMPRESSION: Mild opacity at the left base, atelectasis and/or pneumonia in the appropriate clinical setting. Personally reviewed images as well as with the patient and agree with the above assessment PAST MEDICAL HISTORY Diagnosis Date Anxiety and depression 07/01/2015 ASHD (arteriosclerotic heart disease) 11/21/2010 stent CKD (chronic kidney disease) stage 3, GFR 30-59 ml/min ([facility]) 07/23/2016 History of COVID-19 HTN (hypertension) HYPERLIPIDEMIA NEC/NOS 10/16/2005 Incisional hernia 03/02/2013 Inguinal hernia 07/25/2013 Internal hemorrhoids without mention of complication Left inguinal hernia 09/05/2013 Multiple lung nodules on CT 01/31/202101/2021 CT showing bilateral nodules, ground glass, repeat CT of chest in 6 months ordered Obstructive sleep apnea syndrome 07/01/2015 CPAP Other anxiety states S/P angioplasty with stent S/P CABG x 4 09/28/2012 FIGUEROA-LAD, SVG PDA, SVG Ramus and SVG Distal OM Tobacco use disorder 06/01/2007 ALLERGIES No Known Allergies STIOLTO RESPIMAT 2.5-2.5 mcg/actuation INHALE 2 PUFFS ONE TIME DAILY INSTRUCTED gabapentin (NEURONTIN) 300 mg capsule Take 1 capsule by mouth three times daily for 90 days. clopidogrel (PLAVIX) 75 mg tablet TAKE 1 TABLET EVERY DAY isosorbide mononitrate ER (IMDUR) 30 mg 24 hr tablet TAKE 1 TABLET EVERY DAY atorvastatin (LIPITOR) 80 mg tablet TAKE 1 TABLET EVERY DAY losartan (COZAAR) 25 mg tablet TAKE 1 TABLET EVERY DAY HYDROcodone-acetaminophen (NORCO) 5-325 mg per tablet Take 1 tablet by mouth every 8 hours as needed for pain for up to 10 days. metFORMIN ER (GLUCOPHAGE XR) 500 mg 24 hr tablet Take 1 tablet by mouth twice daily with meals. citalopram (CELEXA) 20 mg tablet Take 0.5 tablets by mouth once daily. metoprolol succinate ER (TOPROL XL) 25 mg 24 hr tablet Take 1 tablet by mouth once daily. cyclobenzaprine (FLEXERIL) 10 mg tablet Take 1 tablet by mouth three times daily as needed for muscle spasm. Ascorbic Acid (VITAMIN C) 1,000 mg tablet Take 1 tablet by mouth once daily. hydrOXYzine pamoate (VISTARIL) 25 mg capsule Take 1-2 capsules by mouth three times daily as needed for anxiety. MAGNESIUM ORAL Take 500 mg by mouth once daily. Glucosamine 1,000 mg tab Take by mouth. ranolazine ER (RANEXA) 500 mg 12 hr tablet Take 1 tablet by mouth twice daily. nitroglycerin sublingual (NITROQUICK) 0.4 mg SL tablet Dissolve 0.4 mg under the tongue every 5 minutes as needed. sodium chloride-aloe vera (AYR GEL W/ALOE) topical nasal gel by INTRANASAL route as needed. Cholecalciferol, Vitamin D3, 1,000 unit cap Take 1 capsule by mouth once daily. aspirin, enteric coated 81 mg EC tablet Take 1 tablet by mouth once daily. Social History Tobacco Use Smoking status: Former Packs/day: 2.00 Years: 43.00 Pack years: 86.00 Types: Cigarettes Quit date: 12/03/2014 Years since q (more content not included)... [facility] 03-24-2022 History of Present illness Narrative Images from the original note were not included. . Respiratory [place] Note Patient name: Иван Agosto PCP: Anuradha Hurtado MD CC: Follow-up COPD HPI: Иван Agosto 71 year old morbidly obese male former greater than [id number]-[id number] smoker, quitting in 2014 with PMH significant for HTN, CAD status post stents and CABG, CKD, HDL, BABS on CPAP, mild COPD, history of COVID 03/2020, abnormal chest CT. Current therapy consists of Stiolto Respimat and as needed albuterol. Chest CT showed pulmonary nodularity and groundglass opacities which have remained stable. Last Chest CT 08/2021. At last office visit, he did not feel that Stiolto was helpful. Plan was to hold Stiolto Respimat and only use albuterol as needed. Weight loss strongly encouraged. Recently ill with pneumonia. Symptoms at that time SOB, wheezing, cough with discolored sputum. Really noticed a difference since he had been off his Stiolto Respimat which he restarted. Seen at Urgent Care where chest x-ray showed faint infiltrate left lower lobe. Treated with antibiotics and steroids. Currently back to his baseline. Denies cough, wheezing, chest pain or significant dyspnea. Scheduled for shoulder reversal at the end of April, Dr. Tyrone Bass. Needs pulmonary clearance. DATA: PFT: Imaging / Diagnostic Studies: DATE OF EXAM: Mar 09 2022 1:46PM [facility] [id number] - XR CHEST 2V FRONTAL/LAT / EXAMINATION: CHEST RADIOGRAPH (2 VIEW FRONTAL & LATERAL) CLINICAL HISTORY: Acute cough MQ: XC2_6 EXAM DATE/TIME: 03/09/2022 1:46 PM COMPARISON: This x-ray dated August 25, 2011 RESULT: Lines, tubes, and devices: None. Lungs and pleura: Mild opacity at the left base. No pleural effusion or pneumothorax. Cardiomediastinal silhouette: Cardiomediastinal silhouette stable in size. Postsurgical changes from median sternotomy. Bones and soft tissues: Degenerative changes are present within the thoracic spine. IMPRESSION: Mild opacity at the left base, atelectasis and/or pneumonia in the appropriate clinical setting. Personally reviewed images as well as with the patient and agree with the above assessment PAST MEDICAL HISTORY Diagnosis Date Anxiety and depression 07/01/2015 ASHD (arteriosclerotic heart disease) 11/21/2010 stent CKD (chronic kidney disease) stage 3, GFR 30-59 ml/min ([facility]) 07/23/2016 History of COVID-19 HTN (hypertension) HYPERLIPIDEMIA NEC/NOS 10/16/2005 Incisional hernia 03/02/2013 Inguinal hernia 07/25/2013 Internal hemorrhoids without mention of complication Left inguinal hernia 09/05/2013 Multiple lung nodules on CT 01/31/202101/2021 CT showing bilateral nodules, ground glass, repeat CT of chest in 6 months ordered Obstructive sleep apnea syndrome 07/01/2015 CPAP Other anxiety states S/P angioplasty with stent S/P CABG x 4 09/28/2012 FIGUEROA-LAD, SVG PDA, SVG Ramus and SVG Distal OM Tobacco use disorder 06/01/2007 ALLERGIES No Known Allergies STIOLTO RESPIMAT 2.5-2.5 mcg/actuation INHALE 2 PUFFS ONE TIME DAILY INSTRUCTED gabapentin (NEURONTIN) 300 mg capsule Take 1 capsule by mouth three times daily for 90 days. clopidogrel (PLAVIX) 75 mg tablet TAKE 1 TABLET EVERY DAY isosorbide mononitrate ER (IMDUR) 30 mg 24 hr tablet TAKE 1 TABLET EVERY DAY atorvastatin (LIPITOR) 80 mg tablet TAKE 1 TABLET EVERY DAY losartan (COZAAR) 25 mg tablet TAKE 1 TABLET EVERY DAY HYDROcodone-acetaminophen (NORCO) 5-325 mg per tablet Take 1 tablet by mouth every 8 hours as needed for pain for up to 10 days. metFORMIN ER (GLUCOPHAGE XR) 500 mg 24 hr tablet Take 1 tablet by mouth twice daily with meals. citalopram (CELEXA) 20 mg tablet Take 0.5 tablets by mouth once daily. metoprolol succinate ER (TOPROL XL) 25 mg 24 hr tablet Take 1 tablet by mouth once daily. cyclobenzaprine (FLEXERIL) 10 mg tablet Take 1 tablet by mouth three times daily as needed for muscle spasm. Ascorbic Acid (VITAMIN C) 1,000 mg tablet Take 1 tablet by mouth once daily. hydrOXYzine pamoate (VISTARIL) 25 mg capsule Take 1-2 capsules by mouth three times daily as needed for anxiety. MAGNESIUM ORAL Take 500 mg by mouth once daily. Glucosamine 1,000 mg tab Take by mouth. ranolazine ER (RANEXA) 500 mg 12 hr tablet Take 1 tablet by mouth twice daily. nitroglycerin sublingual (NITROQUICK) 0.4 mg SL tablet Dissolve 0.4 mg under the tongue every 5 minutes as needed. sodium chloride-aloe vera (AYR GEL W/ALOE) topical nasal gel by INTRANASAL route as needed. Cholecalciferol, Vitamin D3, 1,000 unit cap Take 1 capsule by mouth once daily. aspirin, enteric coated 81 mg EC tablet Take 1 tablet by mouth once daily. Social History Tobacco Use Smoking status: Former Packs/day: 2.00 Years: 43.00 Pack years: 86.00 Types: Cigarettes Quit date: 12/03/2014 Years since quittin.3 Smokeless tobacco: Never Tobacco comments: start age: 20 Substance Use Topics Alcohol use: Yes Comment: occasionally Drug use: No FAMILY HISTORY Problem Relation Age of Onset other (leukemia) Mother 57 other (Myocardial infarction) Father 65 2 VT's of [place] other (brain aneurysm) Maternal Grandfather 78 Ischemic Heart Disease Paternal Grandfather 50 unsure cause of PAST SURGICAL HISTORY Procedure Laterality Date CATARACT EXTRACTION HX COLONOSCOPY FLX DX W/COLLJ SPEC WHEN PFRMD 03/15/2006 Colonoscopy COLONOSCOPY FLX DX W/COLLJ SPEC WHEN PFRMD 09/03/14 Colonoscopy CORONARY ARTERY BYP W/VEIN & ARTERY GRAFT 4 VEIN 09/28/2012 FIGUEROA- LAD, SVG PDA, SVG Ramus, SVG distal OM1 CORONARY STENT EA VESSEL 10/2010 single stent HEART SURGERY HX IMPLANT MESH OPN HERNIA RPR/DEBRIDEMENT CLOSURE 03/02/13 LAPAROSCOPY SURG RPR INITIAL INGUINAL HERNIA 09/05/13 left PAST SURGICAL HISTORY OF 10/20/00 Exc. mole right lower back REPAIR FIRST ABDOMINAL WALL HERNIA 03/02/13 STRESS TEST 11/29/2014 [facility] - see scanned documents TONSILLECTOMY HX PMH, Social history, family history and surgical history reviewed and updated in EMR REVIEW OF SYSTEMS: CONSTITUTIONAL: No fevers, chills, nightsweats, unintended weight loss HEENT: Denies nasal congestion/sinus symptoms, allergy problems. CARDIOVASCULAR: No chest pain, dyspnea, palpitations, orthopnea, PND, edema. PULM: See HPI GI: No dysphagia/odynophagia, problematic reflux NEURO: No new balance problems, peripheral weakness/paresthesias or numbness of concern. MUSC-SKEL: Hands and shoulder pain PSY: No concerns regarding depression, anxiety INTEGUMENTARY: No new skin changes or rashes PHYSICAL EXAMINATION: Wt 294 lb (133.4kg) BP 140/86, pulse 73, RR 16, SPO2 98% on room air General Appearance: Morbidly obese male, NAD Skin: Skin color, texture, turgor normal, no suspicious rashes or lesions. Head: Normocephalic, no masses, lesions, tenderness or abnormalities. Eyes: Sclera, conjunctiva normal Neck: No JVD, no masses, no adenopathy Lungs: Not labored, normal to percussion, no wheezes or crackles Heart: Regular rate and rhythm, no murmurs or gallops Extremities: Arthritis. No edema or clubbing Assessment/Plan: 1. Mild COPD -Recommend continued use of Stiolto Respimat with as needed albuterol -Patient should use his inhalers on the day of surgery 2. Preoperative clearance -Camacho pulmonary score 0.3% risk of respiratory failure requiring mechanical ventilation greater than 48 hours postsurgery, ARISCAT score low risk for postoperative pulmonary complications, [facility] respiratory failure risk index score 24 point correlates with a 5% risk of postoperative respiratory failure requiring mechanical ventilation greater than 48 hours after surgery or unplanned intubation less than 30 days from surgery (the score actually includes COPD as a risk factor). -Cleared from a pulmonary standpoint to undergo reverse shoulder surgery at the end of April. At risk for postoperative hypoxemia based on his morbid obesity. Recommend use of his inhalers on day of surgery 3. Lung nodules -Due for follow-up CT in August 4. Former cigarette smoker -Former [id number] smoker having quit in 2014 with sequelae of mild COPD -Continued abstinence -Continue lung cancer screening until 15 years from smoking 5. Morbid obesity -Class III obesity, BMI 41 -Weight loss advised Kesha Cerda MD Respiratory [place] documented in this encounter [facility] 03-24-2022 Miscellaneous Notes Pre op form and OV faxed to [facility]. Pt cleared for left reverse total shoulder arthroplasty with Dr. Bass. Luisa Lucero Ma documented in this encounter [facility] 03-23-2022 Note HNO ID: [id number] Author: Anuradha Hurtado MD Service: ? Author Type: Physician Type: Progress Notes Filed: 03/23/2022 6:08 PM Note Text: Chief Complaint Patient presents with: 6 Month Exam Pre-Op Exam: Immunizations: Flu vaccination HPI Иван Agosto is a 71 year old male who presents here today for 6 month follow and Pre Op exam. Has 2 grandchildren ages 7 and 4 y.o. He likes to phillips and fish. No bowel, Gi, or urinary issues. HTN/ASHD: Is currently on Imdur 30 mg daily, Losartan 25 mg daily, Toprol XL 50 mg daily Ranexa 500 mg BID, Potassium prn, and Plavix 75 mg daily. Follows with [facility]. Denies checking BP at home, no chest pains, dizziness, or SOB. He only checks BP if he feels it might be off. DM: Started on Metformin xr 500 mg 1 pill BID last visit. Does not check BS at home. Denies any hypoglycemic episodes. Denies any neuropathy sx in feet. Lipid: On lipitor 80 mg daily, tolerating well. Tries to watch diet. Does get a lot of walking when he hunts. Denies any regular exercise regimen. They eat mostly [place] and deer meat. Denies eating much beef. Anxiety: Stable with Celexa 20 mg half pill daily and Vistaril 25 mg 1-2 pills TID prn. Pt thinks that he is going to try to go off the Celexa after he has the surgery. The vistaril he only takes as needed but he feels that it takes a long time for the Vistaril to kick in and then he feels really groggy through the next day. He has used Xanax in the past which worked well for him. Pain: Chronic back and shoulders. Is on Bigelow 5-325 mg prn, Gabapentin 300 mg TID prn, Flexeril 5 mg TID, Mobic 15 mg daily. He states he will not use the Bigelow while on whatever pain meds he gets after surgery. COPD: Follows with Dr. Cerda Pulawa. Gets CT chest done yearly to monitor lung nodule. Is on Stiolto Respimat inhaler daily. Breathing is doing well, does not feel it has worsened. Did have pneumonia in the past and recently was ill with possible flu. He has also had COVID infection in past. He is able to walk out to [place]. Is scheduled for pre op testing on 04/13/[address] Bass and then will be having left reverse total shoulder arthroplasty surgery on 04/30/22 through [facility]. He injured the shoulder when he pushed himself up from a step and felt something crack and had issues with the shoulder ever sense. Past medical history, appointments, medications, allergies reviewed. Previous Medical History PAST MEDICAL HISTORY Diagnosis Date Anxiety and depression 07/01/2015 ASHD (arteriosclerotic heart disease) 11/21/2010 stent CKD (chronic kidney disease) stage 3, GFR 30-59 ml/min ([facility]) 07/23/2016 History of COVID-19 HTN (hypertension) HYPERLIPIDEMIA NEC/NOS 10/16/2005 Incisional hernia 03/02/2013 Inguinal hernia 07/25/2013 Internal hemorrhoids without mention of complication Left inguinal hernia 09/05/[address] Multiple lung nodules on CT 01/31/202101/2021 CT showing bilateral nodules, ground glass, repeat CT of chest in 6 months ordered Obstructive sleep apnea syndrome 07/01/2015 CPAP Other anxiety states S/P angioplasty with stent S/P CABG x 4 09/28/2012 FIGUEROA-LAD, SVG PDA, SVG Ramus and SVG Distal OM Tobacco use disorder 06/01/2007 Previous Surgical History PAST SURGICAL HISTORY Procedure Laterality Date CATARACT EXTRACTION HX COLONOSCOPY FLX DX W/COLLJ SPEC WHEN PFRMD 03/15/2006 Colonoscopy COLONOSCOPY FLX DX W/COLLJ SPEC WHEN PFRMD 09/03/14 Colonoscopy CORONARY ARTERY BYP W/VEIN AND ARTERY GRAFT 4 VEIN 09/28/2012 FIGUEROA- LAD, SVG PDA, SVG Ramus, SVG distal OM1 CORONARY STENT EA VESSEL 10/2010 single stent HEART SURGERY HX IMPLANT MESH OPN HERNIA RPR/DEBRIDEMENT CLOSURE 03/02/13 LAPAROSCOPY SURG RPR INITIAL INGUINAL HERNIA 09/05/13 left PAST SURGICAL HISTORY OF 10/20/00 Exc. mole right lower back REPAIR FIRST ABDOMINAL WALL HERNIA 03/02/13 STRESS TEST 11/29/2014 [facility] - see scanned documents TONSILLECTOMY HX Family History FAMILY HISTORY Problem Relation Age of Onset other (leukemia) Mother 57 other (Myocardial infarction) Father 65 2 VT's of [place] other (brain aneurysm) Maternal Grandfather 78 Ischemic Heart Disease Paternal Grandfather 50 unsure cause of Patient Allergies ALLERGIES No Known Allergies Current Medications Current Outpatient Medications on File Prior to Visit Medication Sig atorvastatin (LIPITOR) 80 mg tablet TAKE 1 TABLET EVERY DAY losartan (COZAAR) 25 mg tablet TAKE 1 TABLET EVERY DAY predniSONE (DELTASONE) 50 mg Take 1 tablet by mouth once daily for 5 days. doxycycline monohydrate (MONODOX) 100 mg capsule Take 1 capsule by mouth twice daily for 7 days. amoxicillin-clavulanic acid (AUGMENTIN) 875-125 mg per tablet Take 1 tablet by mouth twice daily for 5 days. HYDROcodone-acetaminophen (NORCO) 5-325 mg per tablet Take 1 tablet by mouth every 8 hours as needed for pain for up to 10 days. metFORMIN ER (GLUC (more content not included)... [facility] 03-23-2022 Miscellaneous Notes Gabapentin refilled today during OV. Luisa Lucero Ma documented in this encounter [facility] 03-23-2022 History of Present illness Narrative Chief Complaint Patient presents with: 6 Month Exam Pre-Op Exam: Immunizations: Flu vaccination HPI Иван Agosto is a 71 year old male who presents here today for 6 month follow and Pre Op exam. Has 2 grandchildren ages 7 and 4 y.o. He likes to [place] and fish. No bowel, Gi, or urinary issues. HTN/ASHD: Is currently on Imdur 30 mg daily, Losartan 25 mg daily, Toprol XL 50 mg daily Ranexa 500 mg BID, Potassium prn, and Plavix 75 mg daily. Follows with [facility]. Denies checking BP at home, no chest pains, dizziness, or SOB. He only checks BP if he feels it might be off. DM: Started on Metformin xr 500 mg 1 pill BID last visit. Does not check BS at home. Denies any hypoglycemic episodes. Denies any neuropathy sx in feet. Lipid: On lipitor 80 mg daily, tolerating well. Tries to watch diet. Does get a lot of walking when he hunts. Denies any regular exercise regimen. They eat mostly [place] and deer meat. Denies eating much beef. Anxiety: Stable with Celexa 20 mg half pill daily and Vistaril 25 mg 1-2 pills TID prn. Pt thinks that he is going to try to go off the Celexa after he has the surgery. The vistaril he only takes as needed but he feels that it takes a long time for the Vistaril to kick in and then he feels really groggy through the next day. He has used Xanax in the past which worked well for him. Pain: Chronic back and shoulders. Is on Bigelow 5-325 mg prn, Gabapentin 300 mg TID prn, Flexeril 5 mg TID, Mobic 15 mg daily. He states he will not use the Bigelow while on whatever pain meds he gets after surgery. COPD: Follows with Dr. Cerda Pulawa. Gets CT chest done yearly to monitor lung nodule. Is on Stiolto Respimat inhaler daily. Breathing is doing well, does not feel it has worsened. Did have pneumonia in the past and recently was ill with possible flu. He has also had COVID infection in past. He is able to walk out to [place]. Is scheduled for pre op testing on 04/13/[address] Bass and then will be having left reverse total shoulder arthroplasty surgery on 04/30/22 through [facility]. He injured the shoulder when he pushed himself up from a step and felt something crack and had issues with the shoulder ever sense. Past medical history, appointments, medications, allergies reviewed. Previous Medical History PAST MEDICAL HISTORY Diagnosis Date Anxiety and depression 07/01/2015 ASHD (arteriosclerotic heart disease) 11/21/2010 stent CKD (chronic kidney disease) stage 3, GFR 30-59 ml/min ([facility]) 07/23/2016 History of COVID-19 HTN (hypertension) HYPERLIPIDEMIA NEC/NOS 10/16/2005 Incisional hernia 03/02/2013 Inguinal hernia 07/25/2013 Internal hemorrhoids without mention of complication Left inguinal hernia 09/05/[address] Multiple lung nodules on CT 01/31/202101/2021 CT showing bilateral nodules, ground glass, repeat CT of chest in 6 months ordered Obstructive sleep apnea syndrome 07/01/2015 CPAP Other anxiety states S/P angioplasty with stent S/P CABG x 4 09/28/2012 FIGUEROA-LAD, SVG PDA, SVG Ramus and SVG Distal OM Tobacco use disorder 06/01/2007 Previous Surgical History PAST SURGICAL HISTORY Procedure Laterality Date CATARACT EXTRACTION HX COLONOSCOPY FLX DX W/COLLJ SPEC WHEN PFRMD 03/15/2006 Colonoscopy COLONOSCOPY FLX DX W/COLLJ SPEC WHEN PFRMD 09/03/14 Colonoscopy CORONARY ARTERY BYP W/VEIN & ARTERY GRAFT 4 VEIN 09/28/2012 FIGUEROA- LAD, SVG PDA, SVG Ramus, SVG distal OM1 CORONARY STENT EA VESSEL 10/2010 single stent HEART SURGERY HX IMPLANT MESH OPN HERNIA RPR/DEBRIDEMENT CLOSURE 03/02/13 LAPAROSCOPY SURG RPR INITIAL INGUINAL HERNIA 09/05/13 left PAST SURGICAL HISTORY OF 10/20/00 Exc. mole right lower back REPAIR FIRST ABDOMINAL WALL HERNIA 03/02/13 STRESS TEST 11/29/2014 [facility] - see scanned documents TONSILLECTOMY HX Family History FAMILY HISTORY Problem Relation Age of Onset other (leukemia) Mother 57 other (Myocardial infarction) Father 65 2 VT's of [place] other (brain aneurysm) Maternal Grandfather 78 Ischemic Heart Disease Paternal Grandfather 50 unsure cause of Patient Allergies ALLERGIES No Known Allergies Current Medications Current Outpatient Medications on File Prior to Visit Medication Sig atorvastatin (LIPITOR) 80 mg tablet TAKE 1 TABLET EVERY DAY losartan (COZAAR) 25 mg tablet TAKE 1 TABLET EVERY DAY predniSONE (DELTASONE) 50 mg Take 1 tablet by mouth once daily for 5 days. doxycycline monohydrate (MONODOX) 100 mg capsule Take 1 capsule by mouth twice daily for 7 days. amoxicillin-clavulanic acid (AUGMENTIN) 875-125 mg per tablet Take 1 tablet by mouth twice daily for 5 days. HYDROcodone-acetaminophen (NORCO) 5-325 mg per tablet Take 1 tablet by mouth every 8 hours as needed for pain for up to 10 days. metFORMIN ER (GLUCOPHAGE XR) 500 mg 24 hr tablet Take 1 tablet by mouth twice daily with meals. gabapentin (NEURONTIN) 300 mg capsule Take 1 capsule by mouth three times daily for 90 days. citalopram (CELEXA) 20 mg tablet Take 0.5 tablets by mouth once daily. metoprolol succinate ER (TOPROL XL) 25 mg 24 hr tablet Take 1 tablet by mouth once daily. cyclobenzaprine (FLEXERIL) 10 mg tablet Take 1 tablet by mouth three times daily as needed for muscle spasm. Ascorbic Acid (VITAMIN C) 1,000 mg tablet Take 1 tablet by mouth once daily. STIOLTO RESPIMAT 2.5-2.5 mcg/actuation INHALE 2 PUFFS ONE TIME DAILY INSTRUCTED hydrOXYzine pamoate (VISTARIL) 25 mg capsule Take 1-2 capsules by mouth three times daily as needed for anxiety. isosorbide mononitrate ER (IMDUR) 30 mg 24 hr tablet TAKE 1 TABLET EVERY DAY clopidogrel (PLAVIX) 75 mg tablet TAKE 1 TABLET EVERY DAY MAGNESIUM ORAL Take 500 mg by mouth once daily. Glucosamine 1,000 mg tab Take by mouth. ranolazine ER (RANEXA) 500 mg 12 hr tablet Take 1 tablet by mouth twice daily. nitroglycerin sublingual (NITROQUICK) 0.4 mg SL tablet Dissolve 0.4 mg under the tongue every 5 minutes as needed. sodium chloride-aloe vera (AYR GEL W/ALOE) topical nasal gel by INTRANASAL route as needed. Cholecalciferol, Vitamin D3, 1,000 unit cap Take 1 capsule by mouth once daily. aspirin, enteric coated 81 mg EC tablet Take 1 tablet by mouth once daily. No current facility-administered medications on file prior to visit. Social History Social History Tobacco Use Smoking status: Former Packs/day: 2.00 Years: 43.00 Pack years: 86.00 Types: Cigarettes Quit date: 12/03/2014 Years since quittin.3 Smokeless tobacco: Never Tobacco comments: start age: 20 Substance Use Topics Alcohol use: Yes Comment: occasionally Drug use: No EXAM: BP 130/80 Pulse 74 Resp 18 Wt 133.8 kg (295 lb) BMI 41.14 kg/m General Appearance: Well appearing, alert, in no acute distress, well-hydrated, well nourished.. Lungs: Lungs clear to auscultation. No wheezing, rhonchi, rales.. Heart: RRR without murmur, gallop, or rubs. No ectopy. Health Maintenance List ABDOMINAL AORTIC ANEURYSM SCREENING Never done ALPHA-1 ANTITRYPSIN DEFICIENCY SCREENING Never done DEPRESSION ASSESSMENT Never done COVID-19 VACCINE(4 - Booster for Moderna series) due on 06/24/2021 INFLUENZA(1) due on 01/01/2022 LUNG CANCER SCREENING due on 08/01/2022 LDL CHOLESTEROL due on 10/08/2022 ANNUAL PCP TEAM CHRONIC DISEASE VISIT due on 10/16/2022 BP CONTROLLED (<130/80) due on 10/16/2022 COLORECTAL CANCER SCREENING due on 09/03/2024 DIABETES SCREEN due on 01/09/2025 LIPID SCREEN due on 10/08/2026 DTAP,TDAP,TD(4 - Td or Tdap) due on 05/27/2031 SPIROMETRY Completed ADVANCE DIRECTIVE DISCUSSION Completed HEPATITIS C SCREENING Completed SHINGRIX VACCINE Completed PNEUMOCOCCAL: 65+ Completed Data reviewed Pre op form ASSESSMENT/PLAN: 1. Essential hypertension, benign - ICD9: 401.1, ICD10: I10 (primary diagnosis) - good control - Continue current medication(s) - Recommended regular aerobic exercise. - Recommend home blood pressure monitoring, to bring results in on next visit - Goal of BP <130/80 2. Need for influenza vaccination - ICD9: V04.81, ICD10: Z23 - INFLUENZA SEASONAL QUADRIVALENT HIGH DOSE AGE 65+ 3. Need for vaccination - ICD9: V05.9, ICD10: Z23 Covid vaccine given today 4. Hyperlipidemia LDL goal <100 - ICD9: 272.4, ICD10: E78.5 - good control - Continue current medication. - Encouraged following a low fat, low cholesterol diet. - Discussed the benefits of regular aerobic exercise and weight loss. 5. ASHD (arteriosclerotic heart disease) - ICD9: 414.00, ICD10: I25.10 Continue current medications. Continue with Cardio 6. Multiple lung nodules on CT - ICD9: 793.19, ICD10: R91.8 Continue current medications. Continue with Pulm 7. Stage 1 mild COPD by GOLD classification (HCC) - ICD9: 496, ICD10: J44.9 Continue current medications. Continue with Pulm 8. Spinal stenosis, lumbar region, without neurogenic claudication - ICD9: 724.02, ICD10: M48.061 Continue current medications. Reduce Bigelow to #20 pills a month 9. Situational anxiety - ICD9: 300.09, ICD10: F41.8 Try increasing the Celexa to 20 mg at night May stop Vistaril if needed 10. Pre-op exam - ICD9: V72.84, ICD10: Z01.818 Medically stable for the planned procedure Form completed and will be fax[facility] to [facility]. Follow up in 4 months with fasting labs prior. I agree with the Chief Complaint, ROS, and Past Histories independently gathered by the clinical retail support specialist and the remaining scribed note accurately describes my personal service to the patient. Medical Decision Making: Problems: Moderate: 2+ stable chronic illnesses Risk: Moderate: Drug management Medical Decision Making Level: 4 - Moderate Anuradha Hurtado MD The documentation for this note was completed by Luisa Lucero Ma acting as scribe for Anuradha Hurtado MD. March 23, 2022 10:29 AM. Luisa Lucero Ma documented in this encounter [facility] 03-16-2022 Miscellaneous Notes OK to refill as ordered Anuradha Hurtado MD Last office visit: 10/16/21 F/u scheduled: 03/23/22 Luisa Lucero Ma documented in this encounter [facility] 03-09-2022 Note HNO ID: [id number] Author: RT Lucie(R) Service: Nuclear Medicine Author Type: Technologist Type: Progress Notes Filed: 03/09/2022 1:46 PM Note Text: Radiology Service Progress Note PATIENT NAME: Иван Agosto DATE OF SERVICE: March 09, 2022 TIME: 1:35 PM PATIENT IDENTITY VERIFICATION COMPLETED USING TWO (2) IDENTIFIERS: Name and Date of confirmed by patient verbally. FALL SCREENING: Has the patient had 2 falls in the last year or 1 fall with injury or currently using an Ambulatory Assistive Device (Walker, Cane, Wheelchair, Crutches, etc.)? No PATIENT GENDER DATA: Male PATIENT RELEVANT IMPLANT DATA REVIEWED: Not Applicable RADIOLOGY DEPARTMENT: General X-ray: Exam(s) Completed: Chest X-Ray PERIPHERAL IV DATA: Not applicable SIGNED BY: Ebony Le, RT(R) March 09, 2022 1:35 PM [facility] 03-09-2022 Note HNO ID: [id number] Author: Jeb Lopez APRN.PROGRAM COUNSELOR Service: ? Author Type: Nurse Practitioner Type: Progress Notes Filed: 03/09/2022 3:00 PM Note Text: This note was created using [employer]. Subjective Иван Agosto is a 71 year old male. 71 year old male with PMH HTN, hyperlipidemia, sleep apnea, Stage 1 mild COPD presents for illness. Acute onset 10 days ago +cough +fever +emesis with coughing +fatigue +body aches Endorses that some symptoms have improved, But he continues with cough and fatigued. Denies hemoptysis. Denies CP Denies feelings of near syncope. Grandchildren have been ill. Used to be a former smoker. Endorses that symptoms seem to be worsening. The history is provided by the patient. No mobile application tester was used. Cough This is a new problem. The current episode started more than 1 week ago. The problem occurs constantly. The problem has not changed since onset.The cough is Productive of sputum. The maximum temperature recorded prior to his arrival was 100 to 100.9 F. Pertinent negatives include no chest pain, no chills, no sweats, no weight loss, no ear congestion, no ear pain, no headaches, no rhinorrhea, no sore throat, no myalgias, no shortness of breath, no wheezing and no eye redness. He has tried nothing for the symptoms. The treatment provided no relief. He is not a smoker. His past medical history is significant for COPD. His past medical history does not include bronchitis, pneumonia, bronchiectasis, emphysema or asthma. PAST MEDICAL HISTORY Diagnosis Date Anxiety and depression 07/01/2015 ASHD (arteriosclerotic heart disease) 11/21/2010 stent CKD (chronic kidney disease) stage 3, GFR 30-59 ml/min ([facility]) 07/23/2016 History of COVID-19 HTN (hypertension) HYPERLIPIDEMIA NEC/NOS 10/16/2005 Incisional hernia 03/02/2013 Inguinal hernia 07/25/2013 Internal hemorrhoids without mention of complication Left inguinal hernia 09/05/2013 Multiple lung nodules on CT 01/31/202101/2021 CT showing bilateral nodules, ground glass, repeat CT of chest in 6 months ordered Obstructive sleep apnea syndrome 07/01/2015 CPAP Other anxiety states S/P angioplasty with stent S/P CABG x 4 09/28/2012 FIGUEROA-LAD, SVG PDA, SVG Ramus and SVG Distal OM Tobacco use disorder 06/01/2007 PAST SURGICAL HISTORY Procedure Laterality Date CATARACT EXTRACTION HX COLONOSCOPY FLX DX W/COLLJ SPEC WHEN PFRMD 03/15/2006 Colonoscopy COLONOSCOPY FLX DX W/COLLJ SPEC WHEN PFRMD 09/03/14 Colonoscopy CORONARY ARTERY BYP W/VEIN AND ARTERY GRAFT 4 VEIN 09/28/2012 FIGUEROA- LAD, SVG PDA, SVG Ramus, SVG distal OM1 CORONARY STENT EA VESSEL 10/2010 single stent HEART SURGERY HX IMPLANT MESH OPN HERNIA RPR/DEBRIDEMENT CLOSURE 03/02/13 LAPAROSCOPY SURG RPR INITIAL INGUINAL HERNIA 09/05/13 left PAST SURGICAL HISTORY OF 10/20/00 Exc. mole right lower back REPAIR FIRST ABDOMINAL WALL HERNIA 03/02/13 STRESS TEST 11/29/2014 [facility] - see scanned documents TONSILLECTOMY HX ALLERGIES Patient has no known allergies. MEDICATIONS atorvastatin (LIPITOR) 80 mg tablet TAKE 1 TABLET EVERY DAY losartan (COZAAR) 25 mg tablet TAKE 1 TABLET EVERY DAY HYDROcodone-acetaminophen (NORCO) 5-325 mg per tablet Take 1 tablet by mouth every 8 hours as needed for pain for up to 10 days. metFORMIN ER (GLUCOPHAGE XR) 500 mg 24 hr tablet Take 1 tablet by mouth twice daily with meals. gabapentin (NEURONTIN) 300 mg capsule Take 1 capsule by mouth three times daily for 90 days. citalopram (CELEXA) 20 mg tablet Take 0.5 tablets by mouth once daily. metoprolol succinate ER (TOPROL XL) 25 mg 24 hr tablet Take 1 tablet by mouth once daily. cyclobenzaprine (FLEXERIL) 10 mg tablet Take 1 tablet by mouth three times daily as needed for muscle spasm. Ascorbic Acid (VITAMIN C) 1,000 mg tablet Take 1 tablet by mouth once daily. STIOLTO RESPIMAT 2.5-2.5 mcg/actuation INHALE 2 PUFFS ONE TIME DAILY INSTRUCTED hydrOXYzine pamoate (VISTARIL) 25 mg capsule Take 1-2 capsules by mouth three times daily as needed for anxiety. isosorbide mononitrate ER (IMDUR) 30 mg 24 hr tablet TAKE 1 TABLET EVERY DAY clopidogrel (PLAVIX) 75 mg tablet TAKE 1 TABLET EVERY DAY MAGNESIUM ORAL Take 500 mg by mouth once daily. Glucosamine 1,000 mg tab Take by mouth. ranolazine ER (RANEXA) 500 mg 12 hr tablet Take 1 tablet by mouth twice daily. nitroglycerin sublingual (NITROQUICK) 0.4 mg SL tablet Dissolve 0.4 mg under the tongue every 5 minutes as needed. sodium chloride-aloe vera (AYR GEL W/ALOE) topical nasal gel by INTRANASAL route as needed. Cholecalciferol, Vitamin D3, 1,000 unit cap Take 1 capsule by mouth once daily. aspirin, enteric coated 81 mg EC tablet Take 1 tablet by mouth once daily. predniSONE (DELTASONE) 50 mg Take 1 tablet by mouth once daily for 5 days. doxycycline monohydrate (MONODOX) 100 mg capsule Take 1 capsule by mouth twice daily for 7 days. amoxicillin-clavulanic ac (more content not included)... [facility] 03-09-2022 Miscellaneous Notes The following approved medication requests have been transmitted electronically. Requested Prescriptions Pending Prescriptions Disp Refills atorvastatin (LIPITOR) 80 mg tablet [Pharmacy Med Name: ATORVASTATIN CALCIUM 80 MG Tablet] 90 tablet 3 Sig: TAKE 1 TABLET EVERY DAY losartan (COZAAR) 25 mg tablet [Pharmacy Med Name: LOSARTAN POTASSIUM 25 MG Tablet] 90 tablet 3 Sig: TAKE 1 TABLET EVERY DAY Melyssa Shell APRN.CNP Patient phones requesting refills as follows: Requested Prescriptions Pending Prescriptions Disp Refills atorvastatin (LIPITOR) 80 mg tablet [Pharmacy Med Name: ATORVASTATIN CALCIUM 80 MG Tablet] 90 tablet 3 Sig: TAKE 1 TABLET EVERY DAY losartan (COZAAR) 25 mg tablet [Pharmacy Med Name: LOSARTAN POTASSIUM 25 MG Tablet] 90 tablet 3 Sig: TAKE 1 TABLET EVERY DAY LINDA-10/16/21 Labs-10/08/21 NOV-03/23/22 meds filled 02/28/21 Please review and advise. Maria D Au LPN documented in this encounter [facility] 01-14-2022 Miscellaneous Notes The following approved medication requests have been transmitted electronically. Requested Prescriptions Signed Prescriptions Disp Refills metFORMIN ER (GLUCOPHAGE XR) 500 mg 24 hr tablet 60 tablet 11 Sig: Take 1 tablet by mouth twice daily with meals. Authorizing Provider: CIELO JAVED APRN.REMY Spoke with pt he is agreeable to increasing metformin to twice a day. He uses [facility] . Voices understanding of all other information provided. Can you please call the patient and let him know that I reviewed his lab results. Labs were relatively normal however his glucose is elevated at 115 and A1c is unchanged at 6.2. At last visit was started on metformin 500 mg daily, another option is to increase this to twice per day. If patient is agreeable I can send in a new prescription, please verify pharmacy. I would encourage lifestyle changes at home. Try to decrease higher carbohydrate and processed foods. Increase protein, vegetables, and get some form of exercise. Please let me know if he has any questions. Thank you. Cielo Javed APRN.REMY documented in this encounter [facility] 01-08-2022 Miscellaneous Notes Approved. PDMP website checked and validated. All prescriptions have been APPROPRIATELY filled. No suspicious activity was identified. 01/08/2022 by Melyssa Shell APRN.CNP The following approved medication requests have been transmitted electronically. Requested Prescriptions Signed Prescriptions Disp Refills HYDROcodone-acetaminophen (NORCO) 5-325 mg per tablet 20 tablet 0 Sig: Take 1 tablet by mouth every 8 hours as needed for pain for up to 10 days. Authorizing Provider: MELYSSA SHELL APRN.CNP Patient phones requesting refills as follows: Requested Prescriptions Pending Prescriptions Disp Refills HYDROcodone-acetaminophen (NORCO) 5-325 mg per tablet 20 tablet 0 Sig: Take 1 tablet by mouth every 8 hours as needed for pain for up to 10 days. LINDA-10/16/21 Labs-10/08/21Mar-04/20/22 med filled 12/05/21 Please review and advise. Maria D Au LPN documented in this encounter [facility] 12-05-2021 Miscellaneous Notes Notified via dscoutt. OK to refill as ordered for #20 pills Anuradha Hurtado MD Patient phones requesting refills as follows: Pending Prescriptions Disp Refills HYDROCODONE 5 MG-ACETAMINOPHEN 325 MG TABLET 25 tablet 0 Sig: Take 1 tablet by mouth every 8 hours as needed for pain for up to 10 days. INDIRA Class: C-II MELANIE: No LINDA-10/16/21 Labs-/12/22-04/20/22 med filled 11/04/21 ends 11/14/21 Please review and advise. Maria D Au LPN documented in this encounter [facility] 11-04-2021 Miscellaneous Notes Last office visit: 10/16/21 F/u scheduled: 04/20/22 Last refilled on: Bigelow #15 on 10/13/21 See [facility] message. Luisa Lucero Ma documented in this encounter [facility] 10-29-2021 Miscellaneous Notes The following approved medication requests have been transmitted electronically. Pending Prescriptions Disp Refills GABAPENTIN 300 MG CAPSULE 90 capsule 2 Sig: Take 1 capsule by mouth three times daily for 90 days. MELANIE: No Melyssa Shell APRN.REMY Last office visit: 10/16/21 F/u scheduled: 04/20/22 Luisa Lucero Ma documented in this encounter [facility] 10-20-2021 History of Present illness Narrative Subjective HPI HPI Иван Agosto is a 71 year old male who presents today for CC of left ankle pain. This started 1-2 weeks ago, no known injury. Has tried otc medication and ice for relief. Symptoms are worsened by nothing. Risk factors denies hx of gout. .Patient presents with: Pain (foot): left x 1-2 weeks, possible twisted PAST MEDICAL HISTORY Diagnosis Date Anxiety and depression 07/01/2015 ASHD (arteriosclerotic heart disease) 11/21/2010 stent CKD (chronic kidney disease) stage 3, GFR 30-59 ml/min ([facility]) 07/23/2016 History of COVID-19 HTN (hypertension) HYPERLIPIDEMIA NEC/NOS 10/16/2005 Incisional hernia 03/02/2013 Inguinal hernia 07/25/2013 Internal hemorrhoids without mention of complication Left inguinal hernia 09/05/[address] Multiple lung nodules on CT 01/31/202101/2021 CT showing bilateral nodules, ground glass, repeat CT of chest in 6 months ordered Obstructive sleep apnea syndrome 07/01/2015 CPAP Other anxiety states S/P angioplasty with stent S/P CABG x 4 09/28/2012 FIGUEROA-LAD, SVG PDA, SVG Ramus and SVG Distal OM Tobacco use disorder 06/01/2007 PAST SURGICAL HISTORY Procedure Laterality Date CATARACT EXTRACTION HX COLONOSCOPY FLX DX W/COLLJ SPEC WHEN PFRMD 03/15/2006 Colonoscopy COLONOSCOPY FLX DX W/COLLJ SPEC WHEN PFRMD 09/03/14 Colonoscopy CORONARY ARTERY BYP W/VEIN & ARTERY GRAFT 4 VEIN 09/28/2012 FIGUEROA- LAD, SVG PDA, SVG Ramus, SVG distal OM1 CORONARY STENT EA VESSEL 10/2010 single stent HEART SURGERY HX IMPLANT MESH OPN HERNIA RPR/DEBRIDEMENT CLOSURE 03/02/13 LAPAROSCOPY SURG RPR INITIAL INGUINAL HERNIA 09/05/13 left PAST SURGICAL HISTORY OF 10/20/00 Exc. mole right lower back REPAIR FIRST ABDOMINAL WALL HERNIA 03/02/13 STRESS TEST 11/29/2014 [facility] - see scanned documents TONSILLECTOMY HX ALLERGIES Patient has no known allergies. MEDICATIONS meloxicam (MOBIC) 15 mg tablet Take 1 tablet by mouth once daily. metFORMIN ER (GLUCOPHAGE XR) 500 mg 24 hr tablet Take 1 tablet by mouth daily with breakfast. HYDROcodone-acetaminophen (NORCO) 5-325 mg per tablet Take 1 tablet by mouth every 8 hours as needed for pain for up to 10 days. citalopram (CELEXA) 20 mg tablet Take 0.5 tablets by mouth once daily. metoprolol succinate ER (TOPROL XL) 25 mg 24 hr tablet Take 1 tablet by mouth once daily. cyclobenzaprine (FLEXERIL) 10 mg tablet Take 1 tablet by mouth three times daily as needed for muscle spasm. Ascorbic Acid (VITAMIN C) 1,000 mg tablet Take 1 tablet by mouth once daily. STIOLTO RESPIMAT 2.5-2.5 mcg/actuation INHALE 2 PUFFS ONE TIME DAILY INSTRUCTED hydrOXYzine pamoate (VISTARIL) 25 mg capsule Take 1-2 capsules by mouth three times daily as needed for anxiety. atorvastatin (LIPITOR) 80 mg tablet TAKE 1 TABLET EVERY DAY isosorbide mononitrate ER (IMDUR) 30 mg 24 hr tablet TAKE 1 TABLET EVERY DAY clopidogrel (PLAVIX) 75 mg tablet TAKE 1 TABLET EVERY DAY losartan (COZAAR) 25 mg tablet TAKE 1 TABLET EVERY DAY MAGNESIUM ORAL Take 500 mg by mouth once daily. Glucosamine (GLUCOSAMINE RELIEF) 1,000 mg tab Take by mouth. ranolazine ER (RANEXA) 500 mg 12 hr tablet Take 1 tablet by mouth twice daily. nitroglycerin sublingual (NITROQUICK) 0.4 mg SL tablet Dissolve 0.4 mg under the tongue every 5 minutes as needed. sodium chloride-aloe vera (SALINE NASAL, ALOE VERA,) topical nasal gel by INTRANASAL route as needed. Cholecalciferol, Vitamin D3, 1,000 unit cap Take 1 capsule by mouth once daily. aspirin, enteric coated 81 mg EC tablet Take 1 tablet by mouth once daily. gabapentin (NEURONTIN) 300 mg capsule take 1 capsule by mouth three times a day FAMILY HISTORY Problem Relation Age of Onset other (leukemia) Mother 57 other (Myocardial infarction) Father 65 2 VT's of VT other (brain aneurysm) Maternal Grandfather 78 Ischemic Heart Disease Paternal Grandfather 50 unsure cause of Social History Tobacco Use Smoking status: Former Smoker Packs/day: 2.00 Years: 43.00 Pack years: 86.00 Types: Cigarettes Quit date: 12/03/2014 Years since quittin.8 Smokeless tobacco: Never Used Tobacco comment: start age: 20 Substance Use Topics Alcohol use: Yes Comment: occasionally Drug use: No ROS Objective Blood pressure 134/80, pulse 72, temperature 36.8 C (98.2 F), resp. rate 18, weight (!) 145.2 kg (320 lb), SpO2 97 %. Component Latest Ref Rng & Units 10/08/2021 Protein, Total 6.3 - 8.0 g/dL 6.5 Albumin 3.9 - 4.9 g/dL 3.9 Calcium 8.5 - 10.2 mg/dL 8.9 Bilirubin, Total 0.2 - 1.3 mg/dL 0.5 Alkaline Phosphatase 38 - 113 U/L 66 AST 14 - 40 U/L 36 ALT 10 - 54 U/L 55 (H) Glucose 74 - 99 mg/dL 120 (H) BUN 9 - 24 mg/dL 24 Creatinine 0.73 - 1.22 mg/dL 1.18 Sodium 136 - 144 mmol/L 138 Potassium 3.7 - 5.1 mmol/L 4.6 Chloride 97 - 105 mmol/L 105 CO2 22 - 30 mmol/L 24 Anion Gap 9 - 18 mmol/L 9 eGFR >=60 mL/min/1.73m 66 Physical Exam Constitutional: General: He is not in acute distress. Appearance: He is not toxic-appearing or diaphoretic. HENT: Head: Normocephalic and atraumatic. Cardiovascular: Pulses: Dorsalis pedis pulses are 2+ on the left side. Posterior tibial pulses are 2+ on the left side. Pulmonary: Effort: Pulmonary effort is normal. No accessory muscle usage or respiratory distress. Musculoskeletal: Left ankle: Swelling present. No deformity, ecchymosis or lacerations. Tenderness present over the medial malleolus. Decreased range of motion. Normal pulse. Left Achilles Tendon: Normal. Neurological: Mental Status: He is alert and oriented to person, place, and time. ASSESSMENT/PLAN: 1. Acute left ankle pain - ICD9: 719.47, ICD10: M25.572 -no bony abnormality noted on xray -Rest, Ice, Compression, Elevation discussed -follow up with primary care if symptoms persist/worsen in 10-14 days - XR ANKLE GENERAL 3V AP/LAT/OBL LEFT IMPRESSION: No radiographic evidence of acute osseous injury Dictated by : MAEVE BOLAÑOS MD - METHYLPREDNISOLONE 4 MG TABLETS IN A DOSE PACK Agrees to plan Declines avs Mohamud Edmonds APRN.PROGRAM COUNSELOR documented in this encounter [facility] 10-16-2021 Instructions Cielo Javed APRN.CNP - 10/16/2021 11:12 AM EDT 1.) Get labs completed any time after 01/16/2022 2.) Start taking metformin daily with a meal. 3.) Work on eating a low carb diet, increase protein, veggies, and get some exercise. 4.) Continue to take all medication as prescribed. 5.) Schedule appointment to follow up with orthopedics as needed. 6.) Follow up in 6 months or sooner as needed. documented in this encounter [facility] 10-16-2021 History of Present illness Narrative This is a 71 year old male who presents today with: Patient presents with: F/U 3 Month HISTORY OF PRESENT ILLNESS: Иван Agosto is a 71 year old male. Patient presents with: F/U 3 Month Here in the office for 3 month follow up. Chronic Pain: Pain in back and shoulders. Currently taking Bigelow 5/325 mg PRN, Gabapentin 300 mg TID PRN, Mobic 15 mg daily, Flexeril 5 mg as needed. Taking [id number] glucosamine to help with joints. Needs to schedule follow-up with orthopedics. Anxiety: Taking Celexa 10 mg daily and Vistaril 25 mg 1-2 tablets 3 times daily as needed. Symptoms well controlled. Denies any SI/HI. HTN /ASHD: Taking Imdur 30 mg daily, Plavix 75 mg daily, losartan 25 mg daily, Toprol XL 50 mg daily, Ranexa 500 mg twice daily. Using potassium as needed.Seeing cardiology at [facility], last visit June. Next follow up next year. Tolerating medication well. Does not check blood pressure at home regularly usually only if he is not feeling well. Denies chest pain, palpitations, dizziness, or edema. Lipids: Taking atorvastatin 80 mg daily. Trying to work on lifestyle changes at this time. Staying active with grandchildren and family. COPD: Following with pulmonology, Dr. Cerda. Was taking Stiolto Respimat 2.5 mg inhaler but was instructed by pulmonology to hold inhaler unless symptomatic and work on weight loss. Still using inhaler if needed. Chest CT showed no change in lung nodules. Will be due for repeat CT in 1 year. Vaccines: Up to date. Labs completed prior to this visit. CBC and lipids within normal limits. CMP showed elevated glucose at 120. A1c unchanged at 6.2. PAST MEDICAL HISTORY: PAST MEDICAL HISTORY Diagnosis Date Anxiety and depression 07/01/2015 ASHD (arteriosclerotic heart disease) 11/21/2010 stent CKD (chronic kidney disease) stage 3, GFR 30-59 ml/min ([facility]) 07/23/2016 History of COVID-19 HTN (hypertension) HYPERLIPIDEMIA NEC/NOS 10/16/2005 Incisional hernia 03/02/2013 Inguinal hernia 07/25/2013 Internal hemorrhoids without mention of complication Left inguinal hernia 09/05/2013 Multiple lung nodules on CT 01/31/202101/2021 CT showing bilateral nodules, ground glass, repeat CT of chest in 6 months ordered Obstructive sleep apnea syndrome 07/01/2015 CPAP Other anxiety states S/P angioplasty with stent S/P CABG x 4 09/28/2012 FIGUEROA-LAD, SVG PDA, SVG Ramus and SVG Distal OM Tobacco use disorder 06/01/2007 PAST SURGICAL HISTORY Procedure Laterality Date CATARACT EXTRACTION HX COLONOSCOPY FLX DX W/COLLJ SPEC WHEN PFRMD 03/15/2006 Colonoscopy COLONOSCOPY FLX DX W/COLLJ SPEC WHEN PFRMD 09/03/14 Colonoscopy CORONARY ARTERY BYP W/VEIN & ARTERY GRAFT 4 VEIN 09/28/2012 FIGUEROA- LAD, SVG PDA, SVG Ramus, SVG distal OM1 CORONARY STENT EA VESSEL 10/2010 single stent HEART SURGERY HX IMPLANT MESH OPN HERNIA RPR/DEBRIDEMENT CLOSURE 03/02/13 LAPAROSCOPY SURG RPR INITIAL INGUINAL HERNIA 09/05/13 left PAST SURGICAL HISTORY OF 10/20/00 Exc. mole right lower back REPAIR FIRST ABDOMINAL WALL HERNIA 03/02/13 STRESS TEST 11/29/2014 [facility] - see scanned documents TONSILLECTOMY HX ALLERGIES Patient has no known allergies. MEDICATIONS Current Outpatient Medications Medication Sig HYDROcodone-acetaminophen (NORCO) 5-325 mg per tablet Take 1 tablet by mouth every 8 hours as needed for pain for up to 10 days. citalopram (CELEXA) 20 mg tablet Take 0.5 tablets by mouth once daily. metoprolol succinate ER (TOPROL XL) 25 mg 24 hr tablet Take 1 tablet by mouth once daily. cyclobenzaprine (FLEXERIL) 10 mg tablet Take 1 tablet by mouth three times daily as needed for muscle spasm. Ascorbic Acid (VITAMIN C) 1,000 mg tablet Take 1 tablet by mouth once daily. STIOLTO RESPIMAT 2.5-2.5 mcg/actuation INHALE 2 PUFFS ONE TIME DAILY INSTRUCTED gabapentin (NEURONTIN) 300 mg capsule take 1 capsule by mouth three times a day meloxicam (MOBIC) 15 mg tablet Take 1 tablet by mouth once daily. hydrOXYzine pamoate (VISTARIL) 25 mg capsule Take 1-2 capsules by mouth three times daily as needed for anxiety. atorvastatin (LIPITOR) 80 mg tablet TAKE 1 TABLET EVERY DAY isosorbide mononitrate ER (IMDUR) 30 mg 24 hr tablet TAKE 1 TABLET EVERY DAY clopidogrel (PLAVIX) 75 mg tablet TAKE 1 TABLET EVERY DAY losartan (COZAAR) 25 mg tablet TAKE 1 TABLET EVERY DAY MAGNESIUM ORAL Take 500 mg by mouth once daily. Glucosamine (GLUCOSAMINE RELIEF) 1,000 mg tab Take by mouth. ranolazine ER (RANEXA) 500 mg 12 hr tablet Take 1 tablet by mouth twice daily. nitroglycerin sublingual (NITROQUICK) 0.4 mg SL tablet Dissolve 0.4 mg under the tongue every 5 minutes as needed. sodium chloride-aloe vera (SALINE NASAL, ALOE VERA,) topical nasal gel by INTRANASAL route as needed. Cholecalciferol, Vitamin D3, 1,000 unit cap Take 1 capsule by mouth once daily. aspirin, enteric coated 81 mg EC tablet Take 1 tablet by mouth once daily. No current facility-administered medications for this visit. FAMILY HISTORY Problem Relation Age of Onset other (leukemia) Mother 57 other (Myocardial infarction) Father 65 2 VT's of VT other (brain aneurysm) Maternal Grandfather 78 Ischemic Heart Disease Paternal Grandfather 50 unsure cause of Social History Tobacco Use Smoking status: Former Smoker Packs/day: 2.00 Years: 43.00 Pack years: 86.00 Types: Cigarettes Quit date: 12/03/2014 Years since quittin.8 Smokeless tobacco: Never Used Tobacco comment: start age: 20 Substance Use Topics Alcohol use: Yes Comment: occasionally Drug use: No REVIEW OF SYSTEMS GENERAL: No weight loss, malaise or fevers/chills HEENT: Negative for frequent or significant headaches, No changes in hearing or vision. NECK: Negative for lumps, goiter, pain and significant neck swelling RESPIRATORY: Negative for cough, hemoptysis, wheezing, dyspnea or shortness of breath CARDIOVASCULAR: Negative for chest pain, leg swelling, orthopnea, or palpitations GI: No nausea, vomiting, or diarrhea/constipation. No hematochezia/melena. No heartburn or reflux symptoms. : No history of dysuria, frequency or incontinence MUSCULOSKELETAL: Negative for joint pain or swelling. SKIN: Negative for lesions, rash, and itching ENDOCRINE: Negative for cold or heat intolerance, polyuria, polydipsia and goiter NEURO: No history of headaches, syncope, paralysis, seizures or tremors MOOD: Negative for depression, anxiety, or suicidal ideation. EXAM: BP 120/86 Pulse 60 Resp 18 Wt (!) 146.9 kg (323 lb 12.8 oz) BMI 45.16 kg/m PHYSICAL EXAM: General Appearance: Well appearing, alert, in no acute distress, well-hydrated, well nourished. Skin: Skin color, texture, turgor normal, no suspicious rashes or lesions. Head: Normocephalic, no masses, lesions, tenderness or abnormalities. Eyes: Anicteric sclera. Extraocular movements are intact. Lungs: Lungs clear to auscultation. No wheezing, rhonchi, rales. Heart: RRR without murmur, gallop, or rubs. No ectopy. Extremities: No deformities, edema, skin discoloration, clubbing or cyanosis. Good capillary refill. Peripheral Pulses: Normal, Capillary refill <2secs, strong peripheral pulses, Pulses palpable. Neurologic: Gait normal. Reflexes normal and symmetric. Sensation grossly intact. ASSESSMENT/PLAN: 1. Essential hypertension, benign - ICD9: 401.1, ICD10: I10 (primary diagnosis) - good control - Continue current medication(s) - Encouraged dietary sodium restriction/DASH diet - Recommended regular aerobic exercise. - Discussed need and benefit for weight loss. - Goal of BP <130/80 2. ASHD (arteriosclerotic heart disease) - ICD9: 414.00, ICD10: I25.10 - Continue current medication. 3. Hyperlipidemia LDL goal <100 - ICD9: 272.4, ICD10: E78.5 - good control - Continue current medication. 4. Anxiety - ICD9: 300.00, ICD10: F41.9 - Continue current medication. 5. Elevated glucose - ICD9: 790.29, ICD10: R73.09 - Due to elevated glucose and A1C patient agreeable to try metformin to help with insulin resistance. - Discussed lifestyle changes in great detail. - Work on eating a low carb diet, increase protein, veggies, and get some form of exercise. - Get repeat labs in 3 months. - METFORMIN ER 500 MG TABLET,EXTENDED RELEASE 24 HR - COMP METABOLIC PANEL - HGB A1C 6. Spinal stenosis, lumbar region, without neurogenic claudication - ICD9: 724.02, ICD10: M48.061 - Continue with current medication. - Schedule follow up with orthopedics as needed. - MELOXICAM 15 MG TABLET Follow-up in 6 months or sooner as needed. Discussed treatment plan and patient voices understanding. Patient's questions answered appropriately. Medications and potential side effects were discussed and patient voices understanding. Cielo Javed APRN.REMY This note was partially generated using [employer] voice recognition system. Note was reviewed for accuracy. There may be minor misspellings or grammar miscues with [employer] voice recognition. documented in this encounter [facility] 09-08-2021 History of Present illness Narrative Images from the original note were not included. . Respiratory [place] Note Patient name: Иван Agosto PCP: Anuradha Hurtado MD CC: Follow-up chest CT and COPD HPI: Иван Agosto 71 year old male former > 80 pack year smoker, quitting in 2014 with PMH significant for morbid obesity, HTN, CAD s/p stents and CABG, CKD 3, HDL, BABS on CPAP, stage 1 COPD and history of COVID 03/2020. He is on Stiolto Respimat with as needed albuterol for his COPD and weight loss advised due to restriction on PFTs. Has pulmonary nodules/GGO and most recent chest CT showed no change in nodules. Today he states that he does not feel that the Stiolto Respimat has been helpful for his dyspnea. No current chronic coughing, sputum production, wheezing, chest pain. No recent bronchitis, recurrent COVID, ED visits or hospitalization. DATA: Labs: Recent outside laboratory testing showed normal liver and cholesterol Imaging / Diagnostic Studies: DATE OF EXAM: Aug 01 2021 10:30AM [facility] [id number] - CT CHEST WO IVCON / PROCEDURE REASON: multiple diagnoses EXAMINATION: CHEST CT WITHOUT CONTRAST CLINICAL HISTORY: Lung nodules Shortness of breath Ground glass opacities, nodules in the bilateral lungs. Radiology recommending [address] for surveillance. Comparison: CT chest dated 01/31/2021 RESULT: Limitations: None. Lines, tubes, and devices: None. Lung parenchyma and airways: Central airways are patent. No focal airspace consolidation. There is very minimal subpleural reticular opacities and small subpleural groundglass opacities, for example in the left upper lobe (series 6 image 65), right middle lobe (series 6 image 95) and right lower lobe (series 6 image 134). These appear unchanged compared to the prior exam and could represent sequela of prior infectious/inflammatory process with some minimal scarring or early interstitial lung abnormality. There is minimal scarring adjacent to the thoracic osteophytes in the right and left lower lobes. Stable 2 mm subpleural nodule in the lateral right middle lobe adjacent to the minor fissure (series 6 image 85). No new or enlarging pulmonary nodules. Pleural space: No pleural effusion. No pleural thickening. Lower neck, lymph nodes, and mediastinum: The imaged thyroid gland is normal. No lymphadenopathy in the supraclavicular, axillary, mediastinal, or hilar regions. Heart, pericardium, and thoracic vessels: The thoracic aorta and main pulmonary artery are normal in caliber. Scattered atherosclerotic vascular calcifications of the visualized aorta. Mild cardiomegaly with prominent left atrial enlargement. Postsurgical changes of CABG. There are coronary artery atherosclerotic calcifications are noted, although the study is not optimized for coronary assessment. No pericardial effusion or thickening. Bones and soft tissues: No destructive bone lesion. Vertebral body heights are maintained. Multilevel degenerative changes in the visualized spine. Median sternotomy changes. Upper abdomen: Diffuse low attenuation of the hepatic parenchyma, compatible with hepatic steatosis. Small layering hyperdensity within the gallbladder, likely cholelithiasis. IMPRESSION: In comparison to the prior CT from 01/31/2021, no significant interval change. No acute intrathoracic process. Stable minimal subpleural reticulation with small groundglass opacities, which could represent sequela of post infectious/inflammatory process or early interstitial lung abnormality. I personally reviewed images as well as with the patient PAST MEDICAL HISTORY Diagnosis Date Anxiety and depression 07/01/2015 ASHD (arteriosclerotic heart disease) 11/21/2010 stent Chronic cough 08/06/2011 CKD (chronic kidney disease) stage 3, GFR 30-59 ml/min ([facility]) 07/23/2016 Essential hypertension, benign History of COVID-19 HTN (hypertension) HYPERLIPIDEMIA NEC/NOS 10/16/2005 Incisional hernia 03/02/2013 Inguinal hernia 07/25/2013 Internal hemorrhoids without mention of complication Left inguinal hernia 09/05/[address] lung nodules on CT 01/31/202101/2021 CT showing bilateral nodules, ground glass, repeat CT of chest in 6 months ordered Obstructive sleep apnea syndrome 07/01/2015 CPAP Other anxiety states S/P angioplasty with stent S/P CABG x 4 09/28/2012 FIGUEROA-LAD, SVG PDA, SVG Ramus and SVG Distal OM Tobacco use disorder 06/01/2007 ALLERGIES No Known Allergies HYDROcodone-acetaminophen (NORCO) 5-325 mg per tablet Take 1 tablet by mouth every 8 hours as needed for pain for up to 10 days. citalopram (CELEXA) 20 mg tablet Take 0.5 tablets by mouth once daily. metoprolol succinate ER (TOPROL XL) 25 mg 24 hr tablet Take 1 tablet by mouth once daily. cyclobenzaprine (FLEXERIL) 10 mg tablet Take 1 tablet by mouth three times daily as needed for muscle spasm. Ascorbic Acid (VITAMIN C) 1,000 mg tablet Take 1 tablet by mouth once daily. STIOLTO RESPIMAT 2.5-2.5 mcg/actuation INHALE 2 PUFFS ONE TIME DAILY INSTRUCTED gabapentin (NEURONTIN) 300 mg capsule take 1 capsule by mouth three times a day meloxicam (MOBIC) 15 mg tablet Take 1 tablet by mouth once daily. atorvastatin (LIPITOR) 80 mg tablet TAKE 1 TABLET EVERY DAY isosorbide mononitrate ER (IMDUR) 30 mg 24 hr tablet TAKE 1 TABLET EVERY DAY clopidogrel (PLAVIX) 75 mg tablet TAKE 1 TABLET EVERY DAY losartan (COZAAR) 25 mg tablet TAKE 1 TABLET EVERY DAY MAGNESIUM ORAL Take 500 mg by mouth once daily. Glucosamine (GLUCOSAMINE RELIEF) 1,000 mg tab Take by mouth. ranolazine ER (RANEXA) 500 mg 12 hr tablet Take 1 tablet by mouth twice daily. nitroglycerin sublingual (NITROQUICK) 0.4 mg SL tablet Dissolve 0.4 mg under the tongue every 5 minutes as needed. sodium chloride-aloe vera (SALINE NASAL, ALOE VERA,) topical nasal gel by INTRANASAL route as needed. Cholecalciferol, Vitamin D3, 1,000 unit cap Take 1 capsule by mouth once daily. aspirin, enteric coated 81 mg EC tablet Take 1 tablet by mouth once daily. hydrOXYzine pamoate (VISTARIL) 25 mg capsule Take 1-2 capsules by mouth three times daily as needed for anxiety. Social History Tobacco Use Smoking status: Former Smoker Packs/day: 2.00 Years: 43.00 Pack years: 86.00 Types: Cigarettes Quit date: 12/03/2014 Years since quittin.7 Smokeless tobacco: Never Used Tobacco comment: start age: 20 Substance Use Topics Alcohol use: Yes Comment: occasionally Drug use: No PMH, Social history, family history and surgical history reviewed and updated in EMR REVIEW OF SYSTEMS: CONSTITUTIONAL: No fevers, chills, nightsweats, unintended weight loss HEENT: Denies nasal congestion/sinus symptoms CARDIOVASCULAR: No chest pain, palpitations, orthopnea PULM: See HPI GI: No dysphagia/odynophagia, problematic reflux. INTEGUMENTARY: No new skin changes or rashes PHYSICAL EXAMINATION: BP 133/78 Pulse 63 Resp 14 Ht 5' 11 (1.80m) Wt 324 lb (147.0kg) SpO2 97% BMI 45.21 kg/(m^2). General Appearance: Morbidly obese male, NAD Skin: Skin color, texture, turgor normal, no suspicious rashes or lesions. Head: Normocephalic, no masses, lesions, tenderness or abnormalities. Neck: No JVD, no masses, no adenopathy Lungs: Not labored, normal to percussion, no wheezes or crackles Heart: RRR, no murmur appreciated Extremities: No edema, no clubbing Assessment/Plan: 1. Mild COPD, GOLD stage 1 -Patient will hold Stiolto Respimat. If has worsening of his dyspnea on exertion then he will restart his inhaled therapy. -Main reason for dyspnea related to his obesity. Weight loss advised 2. Groundglass opacity on chest imaging -Stable groundglass opacity in left upper lobe -Continued surveillance for at least 5 years -Patient qualifies for yearly low-dose chest CT for cancer screening based on his smoking duration and smoking cessation less than 15 years 3. Morbid obesity -Class 3 morbid obesity with BMI 45 -Weight loss advised 4. Former cigarette smoker -Former greater than 12-[id number] smoker having quit in 2014 with sequelae of mild COPD -Continue smoking cessation -Due for low-dose chest CT in 1 year Kesha Cerda MD [facility] [place] documented in this encounter [facility] 08-13-2021 Miscellaneous Notes Pt sent mychart message notifying him of results below. If questions to contact office. No future order placed at this time. Raissa Medeiros Ma Please let patient know that his CT of his chest shows unchanged lung nodules. I had his pulmonlogist review the imaging. Recommendation is repeating CT of the chest in 1 year. Melyssa Shell APRN.REMY documented in this encounter [facility] 08-12-2021 Miscellaneous Notes The following approved medication requests have been transmitted electronically. Signed Prescriptions Disp Refills HYDROcodone-acetaminophen (NORCO) 5-325 mg per tablet 15 tablet 0 Sig: Take 1 tablet by mouth every 8 hours as needed for pain for up to 10 days. INDIRA Class: C-II MELANIE: No Authorizing Provider: ANURADHA HURTADO Ma OK to refill as ordered Anuradha Hurtado MD Last office visit: 07/16/21 F/u scheduled: 10/16/21 Last refilled on: [facility] #[email or web address] on 07/11/21 Luisa Lucero Ma documented in this encounter [facility] 08-01-2021 History of Present illness Narrative Radiology Service Progress Note PATIENT NAME: Иван Agosto DATE OF SERVICE: August 01, 2021 TIME: 4:20 PM PATIENT IDENTITY VERIFICATION COMPLETED USING TWO (2) IDENTIFIERS: Name and Date of confirmed by patient verbally. FALL SCREENING: Has the patient had 2 falls in the last year or 1 fall with injury or currently using an Ambulatory Assistive Device (Walker, Cane, Wheelchair, Crutches, etc.)? No PATIENT GENDER DATA: Male PATIENT RELEVANT IMPLANT DATA REVIEWED: Not Applicable RADIOLOGY DEPARTMENT: CT; Exam(s) Completed: Chest PERIPHERAL IV DATA: Not applicable SIGNED BY: RT Jack(R) August 01, 2021 4:20 PM documented in this encounter [facility] 01-31-2021 Note HNO ID: [id number] Author: SYLVIA Manley) Service: Radiology Author Type: Technologist Type: Progress Notes Filed: 01/31/2021 7:06 AM Note Text: Radiology Service Progress Note PATIENT NAME: Иван Agosto DATE OF SERVICE: January 31, 2021 TIME: 7:05 AM PATIENT IDENTITY VERIFICATION COMPLETED USING TWO (2) IDENTIFIERS: Name and Date of confirmed by patient verbally and Name and Date of confirmed by identification band. FALL SCREENING: Has the patient had 2 falls in the last year or 1 fall with injury or currently using an Ambulatory Assistive Device (Walker, Cane, Wheelchair, Crutches, etc.)? No PATIENT GENDER DATA: Male PATIENT RELEVANT IMPLANT DATA REVIEWED: Not Applicable RADIOLOGY DEPARTMENT: CT; Exam(s) Completed: Chest PERIPHERAL IV DATA: Inpatient: see LDA documentation SIGNED BY: RT Vineet(Esteban) January 31, 2021 7:05 AM [facility] documented as of this encounter (statuses as of 10/29/2022) [facility]21 History of Past illness Narrative* Problem Noted Date Diagnosed Date Resolved Date Polysubstance dependence in controlled environment 10/22/2020 10/29/2022 CKD (chronic kidney disease) stage 3, GFR 30-59 ml/min 07/23/2016 05/26/2018 Anxiety and depression 07/01/201511/04 Inguinal hernia 07/25/2013 07/26/2014 Chronic cough 08/06/2011 07/23/2016 Tobacco use disorder 06/01/2007 013 documented as of this encounter (statuses as of 11/12/2022) [facility] History of Past illness Narrative* Problem Noted Date Diagnosed Date Resolved Date Polysubstance dependence in controlled environment 10/22/2020 10/29/2022 CKD (chronic kidney disease) stage 3, GFR 30-59 ml/min 07/23/2016 05/26/2018 Anxiety and depression 07/01/201511/04 Inguinal hernia 07/25/2013 07/26/2014 Chronic cough 08/06/2011 07/23/2016 Tobacco use disorder 06/01/2007 013 documented as of this encounter (statuses as of 12/15/2022) [facility] History of Past illness Narrative* Problem Noted Date Diagnosed Date Resolved Date Polysubstance dependence in controlled environment 10/22/2020 10/29/2022 CKD (chronic kidney disease) stage 3, GFR 30-59 ml/min 07/23/2016 05/26/2018 Anxiety and depression 07/01/201511/04 Inguinal hernia 07/25/2013 07/26/2014 Chronic cough 08/06/2011 07/23/2016 Tobacco use disorder 06/01/2007 013 documented as of this encounter (statuses as of 12/17/2022) [facility] History of Past illness Narrative* Problem Noted Date Diagnosed Date Resolved Date Polysubstance dependence in controlled environment 10/22/2020 10/29/2022 CKD (chronic kidney disease) stage 3, GFR 30-59 ml/min 07/23/2016 05/26/2018 Anxiety and depression 07/01/201511/04 Inguinal hernia 07/25/2013 07/26/2014 Chronic cough 08/06/2011 07/23/2016 Tobacco use disorder 06/01/2007 013 documented as of this encounter (statuses as of 12/22/2022) [facility] History of Past illness Narrative* Problem Noted Date Diagnosed Date Resolved Date Polysubstance dependence in controlled environment 10/22/2020 10/29/2022 CKD (chronic kidney disease) stage 3, GFR 30-59 ml/min 07/23/2016 05/26/2018 Anxiety and depression 07/01/201511/04 Inguinal hernia 07/25/2013 07/26/2014 Chronic cough 08/06/2011 07/23/2016 Tobacco use disorder 06/01/2007 013 documented as of this encounter (statuses as of 12/23/2022) [facility] History of Past illness Narrative* Problem Noted Date Diagnosed Date Resolved Date Polysubstance dependence in controlled environment 10/22/2020 10/29/2022 CKD (chronic kidney disease) stage 3, GFR 30-59 ml/min 07/23/2016 05/26/2018 Anxiety and depression 07/01/201511/04 Inguinal hernia 07/25/2013 07/26/2014 Chronic cough 08/06/2011 07/23/2016 Tobacco use disorder 06/01/2007 013 documented as of this encounter (statuses as of 01/05/2023) [facility] History of Past illness Narrative* Problem Noted Date Diagnosed Date Resolved Date Polysubstance dependence in controlled environment 10/22/2020 10/29/2022 CKD (chronic kidney disease) stage 3, GFR 30-59 ml/min 07/23/2016 05/26/2018 Anxiety and depression 07/01/201511/04 Inguinal hernia 07/25/2013 07/26/2014 Chronic cough 08/06/2011 07/23/2016 Tobacco use disorder 06/01/2007 013 documented as of this encounter (statuses as of 01/05/2023) [facility] History of Past illness Narrative* Problem Noted Date Diagnosed Date Resolved Date Polysubstance dependence in controlled environment 10/22/2020 10/29/2022 CKD (chronic kidney disease) stage 3, GFR 30-59 ml/min 07/23/2016 05/26/2018 Anxiety and depression 07/01/201511/04 Inguinal hernia 07/25/2013 07/26/2014 Chronic cough 08/06/2011 07/23/2016 Tobacco use disorder 06/01/2007 013 documented as of this encounter (statuses as of 01/12/2023) [facility] History of Past illness Narrative* Problem Noted Date Diagnosed Date Resolved Date Polysubstance dependence in controlled environment 10/22/2020 10/29/2022 CKD (chronic kidney disease) stage 3, GFR 30-59 ml/min 07/23/2016 05/26/2018 Anxiety and depression 07/01/201511/04 Inguinal hernia 07/25/2013 07/26/2014 Chronic cough 08/06/2011 07/23/2016 Tobacco use disorder 06/01/2007 013 documented as of this encounter (statuses as of 01/26/2023) [facility] History of Past illness Narrative* Problem Noted Date Diagnosed Date Resolved Date Polysubstance dependence in controlled environment 10/22/2020 10/29/2022 CKD (chronic kidney disease) stage 3, GFR 30-59 ml/min 07/23/2016 05/26/2018 Anxiety and depression 07/01/201511/04 Inguinal hernia 07/25/2013 07/26/2014 Chronic cough 08/06/2011 07/23/2016 Tobacco use disorder 06/01/2007 013 documented as of this encounter (statuses as of 02/09/2023) [facility] History of Past illness Narrative* Problem Noted Date Diagnosed Date Resolved Date Polysubstance dependence in controlled environment 10/22/2020 10/29/2022 CKD (chronic kidney disease) stage 3, GFR 30-59 ml/min 07/23/2016 05/26/2018 Anxiety and depression 07/01/201511/04 Inguinal hernia 07/25/2013 07/26/2014 Chronic cough 08/06/2011 07/23/2016 Tobacco use disorder 06/01/2007 013 documented as of this encounter (statuses as of 03/07/2023) [facility] History of Past illness Narrative* Problem Noted Date Diagnosed Date Resolved Date Polysubstance dependence in controlled environment 10/22/2020 10/29/2022 CKD (chronic kidney disease) stage 3, GFR 30-59 ml/min 07/23/2016 05/26/2018 Anxiety and depression 07/01/201511/04 Inguinal hernia 07/25/2013 07/26/2014 Chronic cough 08/06/2011 07/23/2016 Tobacco use disorder 06/01/2007 013 documented as of this encounter (statuses as of 03/22/2023) [facility] History of Past illness Narrative* Problem Noted Date Diagnosed Date Resolved Date Polysubstance dependence in controlled environment 10/22/2020 10/29/2022 CKD (chronic kidney disease) stage 3, GFR 30-59 ml/min 07/23/2016 05/26/2018 Anxiety and depression 07/01/201511/04 Inguinal hernia 07/25/2013 07/26/2014 Chronic cough 08/06/2011 07/23/2016 Tobacco use disorder 06/01/2007 013 documented as of this encounter (statuses as of 03/27/2023) [facility] History of Past illness Narrative* Problem Noted Date Diagnosed Date Resolved Date Polysubstance dependence in controlled environment 10/22/2020 10/29/2022 CKD (chronic kidney disease) stage 3, GFR 30-59 ml/min 07/23/2016 05/26/2018 Anxiety and depression 07/01/201511/04 Inguinal hernia 07/25/2013 07/26/2014 Chronic cough 08/06/2011 07/23/2016 Tobacco use disorder 06/01/2007 013 documented as of this encounter (statuses as of 06/07/2023) [facility] History of Past illness Narrative* Problem Noted Date Diagnosed Date Resolved Date Polysubstance dependence in controlled environment 10/22/2020 10/29/2022 CKD (chronic kidney disease) stage 3, GFR 30-59 ml/min 07/23/2016 05/26/2018 Anxiety and depression 07/01/201511/04 Inguinal hernia 07/25/2013 07/26/2014 Chronic cough 08/06/2011 07/23/2016 Tobacco use disorder 06/01/2007 013 documented as of this encounter (statuses as of 07/02/2023) [facility] History of Past illness Narrative* Problem Noted Date Resolved Date CKD (chronic kidney disease) stage 3, GFR 30-59 ml/min 07/23/2016 05/26/2018 Anxiety and depression 07/01/2015 8 Inguinal hernia 07/25/2013 07/26/2014 Chronic cough 08/06/2011 07/23/2016 Tobacco use disorder 06/01/2007 12/01/2012 documented as of this encounter (statuses as of 08/02/2021) [facility] History of Past illness Narrative* Problem Noted Date Resolved Date CKD (chronic kidney disease) stage 3, GFR 30-59 ml/min 07/23/2016 05/26/2018 Anxiety and depression 07/01/2015 8 Inguinal hernia 07/25/2013 07/26/2014 Chronic cough 08/06/2011 07/23/2016 Tobacco use disorder 06/01/2007 12/01/2012 documented as of this encounter (statuses as of 08/12/2021) [facility] History of Past illness Narrative* Problem Noted Date Resolved Date CKD (chronic kidney disease) stage 3, GFR 30-59 ml/min 07/23/2016 05/26/2018 Anxiety and depression 07/01/2015 8 Inguinal hernia 07/25/2013 07/26/2014 Chronic cough 08/06/2011 07/23/2016 Tobacco use disorder 06/01/2007 12/01/2012 documented as of this encounter (statuses as of 08/13/2021) [facility] History of Past illness Narrative* Problem Noted Date Resolved Date CKD (chronic kidney disease) stage 3, GFR 30-59 ml/min 07/23/2016 05/26/2018 Anxiety and depression 07/01/2015 8 Inguinal hernia 07/25/2013 07/26/2014 Chronic cough 08/06/2011 07/23/2016 Tobacco use disorder 06/01/2007 12/01/2012 documented as of this encounter (statuses as of 09/08/2021) [facility] History of Past illness Narrative* Problem Noted Date Resolved Date CKD (chronic kidney disease) stage 3, GFR 30-59 ml/min 07/23/2016 05/26/2018 Anxiety and depression 07/01/2015 8 Inguinal hernia 07/25/2013 07/26/2014 Chronic cough 08/06/2011 07/23/2016 Tobacco use disorder 06/01/2007 12/01/2012 documented as of this encounter (statuses as of 10/16/2021) [facility] History of Past illness Narrative* Problem Noted Date Resolved Date CKD (chronic kidney disease) stage 3, GFR 30-59 ml/min 07/23/2016 05/26/2018 Anxiety and depression 07/01/2015 8 Inguinal hernia 07/25/2013 07/26/2014 Chronic cough 08/06/2011 07/23/2016 Tobacco use disorder 06/01/2007 12/01/2012 documented as of this encounter (statuses as of 10/20/2021) [facility] History of Past illness Narrative* Problem Noted Date Resolved Date CKD (chronic kidney disease) stage 3, GFR 30-59 ml/min 07/23/2016 05/26/2018 Anxiety and depression 07/01/2015 8 Inguinal hernia 07/25/2013 07/26/2014 Chronic cough 08/06/2011 07/23/2016 Tobacco use disorder 06/01/2007 12/01/2012 documented as of this encounter (statuses as of 10/29/2021) [facility] History of Past illness Narrative* Problem Noted Date Resolved Date CKD (chronic kidney disease) stage 3, GFR 30-59 ml/min 07/23/2016 05/26/2018 Anxiety and depression 07/01/2015 8 Inguinal hernia 07/25/2013 07/26/2014 Chronic cough 08/06/2011 07/23/2016 Tobacco use disorder 06/01/2007 12/01/2012 documented as of this encounter (statuses as of 11/04/2021) [facility] History of Past illness Narrative* Problem Noted Date Resolved Date CKD (chronic kidney disease) stage 3, GFR 30-59 ml/min 07/23/2016 05/26/2018 Anxiety and depression 07/01/2015 8 Inguinal hernia 07/25/2013 07/26/2014 Chronic cough 08/06/2011 07/23/2016 Tobacco use disorder 06/01/2007 12/01/2012 documented as of this encounter (statuses as of 12/05/2021) [address] History of Past illness Narrative* Problem Noted Date Resolved Date CKD (chronic kidney disease) stage 3, GFR 30-59 ml/min 07/23/2016 05/26/2018 Anxiety and depression 07/01/2015 8 Inguinal hernia 07/25/2013 07/26/2014 Chronic cough 08/06/2011 07/23/2016 Tobacco use disorder 06/01/2007 12/01/2012 documented as of this encounter (statuses as of 01/08/2022) [facility] History of Past illness Narrative* Problem Noted Date Resolved Date CKD (chronic kidney disease) stage 3, GFR 30-59 ml/min 07/23/2016 05/26/2018 Anxiety and depression 07/01/2015 8 Inguinal hernia 07/25/2013 07/26/2014 Chronic cough 08/06/2011 07/23/2016 Tobacco use disorder 06/01/2007 12/01/2012 documented as of this encounter (statuses as of 01/14/2022) [facility] History of Past illness Narrative* Problem Noted Date Resolved Date CKD (chronic kidney disease) stage 3, GFR 30-59 ml/min 07/23/2016 05/26/2018 Anxiety and depression 07/01/2015 8 Inguinal hernia 07/25/2013 07/26/2014 Chronic cough 08/06/2011 07/23/2016 Tobacco use disorder 06/01/2007 12/01/2012 documented as of this encounter (statuses as of 03/09/2022) [facility] History of Past illness Narrative* Problem Noted Date Resolved Date CKD (chronic kidney disease) stage 3, GFR 30-59 ml/min 07/23/2016 05/26/2018 Anxiety and depression 07/01/2015 8 Inguinal hernia 07/25/2013 07/26/2014 Chronic cough 08/06/2011 07/23/2016 Tobacco use disorder 06/01/2007 12/01/2012 documented as of this encounter (statuses as of 03/16/2022) [facility] History of Past illness Narrative* Problem Noted Date Resolved Date CKD (chronic kidney disease) stage 3, GFR 30-59 ml/min 07/23/2016 05/26/2018 Anxiety and depression 07/01/2015 8 Inguinal hernia 07/25/2013 07/26/2014 Chronic cough 08/06/2011 07/23/2016 Tobacco use disorder 06/01/2007 12/01/2012 documented as of this encounter (statuses as of 03/23/2022) [address]2017 History of Past illness Narrative* Problem Noted Date Resolved Date CKD (chronic kidney disease) stage 3, GFR 30-59 ml/min 07/23/2016 05/26/2018 Anxiety and depression 07/01/2015 8 Inguinal hernia 07/25/2013 07/26/2014 Chronic cough 08/06/2011 07/23/2016 Tobacco use disorder 06/01/2007 12/01/2012 documented as of this encounter (statuses as of 03/24/2022) [address]2017 History of Past illness Narrative* Problem Noted Date Resolved Date CKD (chronic kidney disease) stage 3, GFR 30-59 ml/min 07/23/2016 05/26/2018 Anxiety and depression 07/01/2015 8 Inguinal hernia 07/25/2013 07/26/2014 Chronic cough 08/06/2011 07/23/2016 Tobacco use disorder 06/01/2007 12/01/2012 documented as of this encounter (statuses as of 03/24/2022) [address]2017 History of Past illness Narrative* Problem Noted Date Resolved Date CKD (chronic kidney disease) stage 3, GFR 30-59 ml/min 07/23/2016 05/26/2018 Anxiety and depression 07/01/2015 8 Inguinal hernia 07/25/2013 07/26/2014 Chronic cough 08/06/2011 07/23/2016 Tobacco use disorder 06/01/2007 12/01/2012 documented as of this encounter (statuses as of 03/24/2022) [place] [id number] History of Past illness Narrative* Problem Noted Date Resolved Date CKD (chronic kidney disease) stage 3, GFR 30-59 ml/min 07/23/2016 05/26/2018 Anxiety and depression 07/01/2015 8 Inguinal hernia 07/25/2013 07/26/2014 Chronic cough 08/06/2011 07/23/2016 Tobacco use disorder 06/01/2007 12/01/2012 documented as of this encounter (statuses as of 05/26/2022) [address] History of Past illness Narrative* Problem Noted Date Resolved Date CKD (chronic kidney disease) stage 3, GFR 30-59 ml/min 07/23/2016 05/26/2018 Anxiety and depression 07/01/2015 8 Inguinal hernia 07/25/2013 07/26/2014 Chronic cough 08/06/2011 07/23/2016 Tobacco use disorder 06/01/2007 12/01/2012 documented as of this encounter (statuses as of 07/13/2022) [address]2017 History of Past illness Narrative* Problem Noted Date Resolved Date CKD (chronic kidney disease) stage 3, GFR 30-59 ml/min 07/23/2016 05/26/2018 Anxiety and depression 07/01/2015 8 Inguinal hernia 07/25/2013 07/26/2014 Chronic cough 08/06/2011 07/23/2016 Tobacco use disorder 06/01/2007 12/01/2012 documented as of this encounter (statuses as of 07/27/2022) [facility] History of Past illness Narrative* Problem Noted Date Resolved Date CKD (chronic kidney disease) stage 3, GFR 30-59 ml/min 07/23/2016 05/26/2018 Anxiety and depression 07/01/2015 8 Inguinal hernia 07/25/2013 07/26/2014 Chronic cough 08/06/2011 07/23/2016 Tobacco use disorder 06/01/2007 12/01/2012 documented as of this encounter (statuses as of 08/06/2022) [facility] History of Past illness Narrative* Problem Noted Date Resolved Date CKD (chronic kidney disease) stage 3, GFR 30-59 ml/min 07/23/2016 05/26/2018 Anxiety and depression 07/01/2015 8 Inguinal hernia 07/25/2013 07/26/2014 Chronic cough 08/06/2011 07/23/2016 Tobacco use disorder 06/01/2007 12/01/2012 documented as of this encounter (statuses as of 08/10/2022) [address]2017 History of Past illness Narrative* Problem Noted Date Resolved Date CKD (chronic kidney disease) stage 3, GFR 30-59 ml/min 07/23/2016 05/26/2018 Anxiety and depression 07/01/2015 8 Inguinal hernia 07/25/2013 07/26/2014 Chronic cough 08/06/2011 07/23/2016 Tobacco use disorder 06/01/2007 12/01/2012 documented as of this encounter (statuses as of 08/10/2022) [facility] History of Past illness Narrative* Problem Noted Date Resolved Date CKD (chronic kidney disease) stage 3, GFR 30-59 ml/min 07/23/2016 05/26/2018 Anxiety and depression 07/01/2015 8 Inguinal hernia 07/25/2013 07/26/2014 Chronic cough 08/06/2011 07/23/2016 Tobacco use disorder 06/01/2007 12/01/2012 documented as of this encounter (statuses as of 08/11/2022) [facility]03-23-2017 History of Past illness Narrative* Problem Noted Date Resolved Date CKD (chronic kidney disease) stage 3, GFR 30-59 ml/min 07/23/2016 05/26/2018 Anxiety and depression 07/01/2015 8 Inguinal hernia 07/25/2013 07/26/2014 Chronic cough 08/06/2011 07/23/2016 Tobacco use disorder 06/01/2007 12/01/2012 documented as of this encounter (statuses as of 08/27/2022) [facility] note* Diagnosis Bilateral hand numbness Disturbance of skin sensation [facility]: Evaluation [facility]* Diagnosis Lung nodules Other nonspecific abnormal finding of lung field Shortness of breath [facility]* Diagnosis SPINAL STENOSIS-LUMBAR Spinal stenosis, lumbar region, without neurogenic claudication LUMB DISC 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, lumbar region Polysubstance dependence in controlled environment ([facility]) Combinations of drug dependence excluding opioid type drug, unspecified documented [facility] this [facility]* Diagnosis Multiple lung nodules on CT documented in this encounter [facility] note* Diagnosis Stage 1 mild COPD by GOLD classification ([facility])- Primary Ground glass opacity present on imaging of lung Morbid obesity ([facility]) Morbid obesity Former cigarette smoker Personal history of tobacco use, presenting hazards to health [facility]* Diagnosis Essential hypertension, benign- Primary ASHD (arteriosclerotic heart disease) Coronary atherosclerosis of unspecified type of vessel, [place] or graft Hyperlipidemia LDL goal <100 Other and unspecified hyperlipidemia Anxiety Anxiety state, unspecified Elevated glucose Other abnormal glucose Spinal stenosis, lumbar region, without neurogenic claudication documented in this encounter [facility] note* Diagnosis Acute left ankle pain- Primary documented in this encounter [facility] note* Diagnosis Spinal stenosis, lumbar region, without neurogenic claudication Intervertebral lumbar disc disorder with myelopathy, lumbar region documented in this encounter [facility] note* Diagnosis SPINAL STENOSIS-LUMBAR Spinal stenosis, lumbar region, without neurogenic claudication LUMB DISC 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, lumbar region Polysubstance dependence in controlled environment ([facility]) Combinations of drug dependence excluding opioid type drug, unspecified documented in this encounter [facility] note* Diagnosis SPINAL STENOSIS-LUMBAR Spinal stenosis, lumbar region, without neurogenic claudication LUMB DISC 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, lumbar region Polysubstance dependence in controlled environment ([facility]) Combinations of drug dependence excluding opioid type drug, unspecified documented in this encounter [facility] note* Diagnosis SPINAL STENOSIS-LUMBAR Spinal stenosis, lumbar region, without neurogenic claudication LUMB DISC 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, lumbar region Polysubstance dependence in controlled environment ([facility]) Combinations of drug dependence excluding opioid type drug, unspecified documented in this encounter [facility] note* Diagnosis Elevated glucose- Primary Other abnormal glucose documented [facility] this [facility]* Diagnosis Hyperlipidemia LDL goal <100 Other and unspecified hyperlipidemia Essential hypertension, benign documented in this encounter [facility] note* Diagnosis Spinal stenosis, lumbar region, without neurogenic claudication Intervertebral lumbar disc disorder with myelopathy, lumbar region documented in this encounter [facility] note* Diagnosis Essential hypertension, benign- Primary Need for influenza vaccination Need for prophylactic vaccination and inoculation against influenza Need for vaccination Need for prophylactic vaccination and inoculation against unspecified single disease Hyperlipidemia LDL goal <100 Other and unspecified hyperlipidemia ASHD (arteriosclerotic heart disease) Coronary atherosclerosis of unspecified type of vessel, [place] or graft Multiple lung nodules on CT Stage 1 mild COPD by GOLD classification ([facility]) SPINAL STENOSIS-LUMBAR Spinal stenosis, lumbar region, without neurogenic claudication Situational anxiety Other anxiety states Pre-op exam Preoperative examination, unspecified LUMB DISC 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, lumbar region Elevated glucose Other abnormal glucose [facility]* Diagnosis Stage 1 mild COPD by GOLD classification ([facility])- Primary Pre-operative clearance Preoperative examination, unspecified Lung nodules Other nonspecific abnormal finding of lung field Former cigarette smoker Personal history of tobacco use, presenting hazards to health Morbid obesity ([facility]) Morbid obesity [facility]* Diagnosis Stage 1 mild COPD by GOLD classification ([facility])- Primary Morbid obesity with BMI of 40.0-44.9, adult ([facility]) Morbid obesity Polycythemia Polycythemia vera Lung nodules Other nonspecific abnormal finding of lung field Former cigarette smoker Personal history of tobacco use, presenting hazards to health [facility]* Diagnosis Stage 1 mild COPD by GOLD classification ([facility])- Primary SPINAL STENOSIS-LUMBAR Spinal stenosis, lumbar region, without neurogenic claudication LUMB DISC 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, lumbar region Hyperlipidemia LDL goal <100 Other and unspecified hyperlipidemia Essential hypertension, benign ASHD (arteriosclerotic heart disease) Coronary atherosclerosis of unspecified type of vessel, [place] or graft Anxiety and depression Dysthymic disorder Impaired fasting glucose [facility]* Diagnosis SPINAL STENOSIS-LUMBAR Spinal stenosis, lumbar region, without neurogenic claudication LUMB DISC 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, lumbar region [facility]* Diagnosis Essential hypertension, benign- Primary SPINAL STENOSIS-LUMBAR Spinal stenosis, lumbar region, without neurogenic claudication LUMB DISC 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, lumbar region Hyperlipidemia LDL goal <100 Other and unspecified hyperlipidemia Anxiety and depression Dysthymic disorder Impaired fasting glucose Elevated glucose Other abnormal glucose Stage 1 mild COPD by GOLD classification ([facility]) [facility]* Diagnosis SPINAL STENOSIS-LUMBAR Spinal stenosis, lumbar region, without neurogenic claudication LUMB DISC 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, lumbar region [facility]* Diagnosis SPINAL STENOSIS-LUMBAR Spinal stenosis, lumbar region, without neurogenic claudication LUMB DISC 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, lumbar region [facility]* Diagnosis Obstructive sleep apnea syndrome- Primary Obstructive sleep apnea (adult) (pediatric) documented [facility]* Diagnosis Spinal stenosis, lumbar region, without neurogenic claudication Intervertebral lumbar disc disorder with myelopathy, lumbar region [facility]* Diagnosis Elevated glucose Other abnormal glucose documented in this encounter [facility] note* Diagnosis SPINAL STENOSIS-LUMBAR Spinal stenosis, lumbar region, without neurogenic claudication LUMB DISC 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, lumbar region [facility]* Diagnosis Hyperlipidemia LDL goal <100- Primary Other and unspecified hyperlipidemia Elevated glucose Other abnormal glucose [facility]* Diagnosis Lung nodules Other nonspecific abnormal finding of lung field [facility]* Diagnosis SPINAL STENOSIS-LUMBAR Spinal stenosis, lumbar region, without neurogenic claudication LUMB DISC 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, lumbar region documented [facility] this [facility]* Diagnosis Hyperlipidemia LDL goal <100 Other and unspecified hyperlipidemia Essential hypertension, benign [facility]* Diagnosis SPINAL STENOSIS-LUMBAR Spinal stenosis, lumbar region, without neurogenic claudication LUMB DISC 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, lumbar region [facility]* Diagnosis Former cigarette smoker- Primary Personal history of tobacco use, presenting hazards to health Displaced fracture of acromial process, left shoulder, initial encounter for closed fracture Status post total shoulder replacement, left documented in this encounter [facility] for referral (narrative)* Diagnostic Procedure Only (Urgent) - Closed Specialty Diagnoses / Procedures Referred By Steve t Referred To Contact XR IMAGING Diagnoses Acute left ankle pain Procedures XR ANKLE GENERAL 3V AP/LAT/OBL LEFT RADEX ANKLE COMPLETE MINIMUM 3 VIEWS Mohamud Edmonds APRN.CNP [address] [place] [address] Xr Imaging Referral ID Status Reason Start Date Expiration Date V isits Requested Visits Authorized [id number] Closed Auto-Generate d Referral 10/20/2021 11/19/2022 1 [facility] Procedure (Routine) - Authorized Specialty Diagnoses / Procedures Referred By Contac t Referred To Contact [facility] Diagnoses Stage 1 mild COPD by GOLD classification ([facility]) Procedures SPIROMETRY WITH DILATOR IF OBSTRUCTED BRNCDILAT RSPSE SPMTRY PRE&POST-BRNCDILAT Kesha Ochoa MD [address] [facility] [place] [address] [facility] [place] [address] [place] [id number] Referral ID Status Reason Start Date Expiration Date Visits Requested Visits Authorized [id number] Authorized Auto-Generat ed Referral 07/13/2022 08/12/2023 1 1 * Outpatient Procedure (Routine) - Authorized Specialty Diagnoses / Procedures Referred By Contac t Referred To Contact [facility] Diagnoses Stage 1 mild COPD by GOLD classification ([facility]) Procedures OXIMETRY WITH AMBULATION NONINVASIVE EAR/PULSE OXIMETRY MULTIPLE Kesha Goldsmith MD [address] [place] [address] [id number] [place] [address] Referral ID Status Reason Start Date Expiration Date Visits Requested Visits Authorized [id number] Authorized Auto-Generat ed Referral 07/13/2022 08/12/2023 1 1 [facility] Reason for Referral Status Reason Specialty Diagnoses / Procedures Referre d By Contact Referred To Contact Closed Neurology Diagnoses Bilateral hand numbness Procedures Nerve Conduction Test with EMG Colton Koroma MD [address] [facility] [address] [place] [id number] Specialty Diagnoses / Procedures Referred By Contac t Referred To Contact CT IMAGING Diagnoses Lung nodules Shortness of breath Procedures CT CHEST WO IVCON CAT SCAN OF CHEST Trent, RINA Michaud.PROGRAM COUNSELOR [address] [place] [address] Ct Imaging Referral ID Status Reason Start Date Expiration Date V isits Requested Visits Authorized [id number] Closed Auto-Generate d Referral 08/01/2021 03/02/2022 1 1 Specialty Diagnoses / Procedures Referred By Contac t Referred To Contact CT IMAGING Diagnoses Lung nodules Procedures CT CHEST WO IVCON DIAGNOSTIC COMPUTED TOMOGRAPHY THORAX W/O Kesha Tripathi MD [address] [place] [address] Ct Imaging Referral ID Status Reason Start Date Expiration Date Visits Requested Visits Authorized [id number] Authorized Auto-Generat ed Referral 08/10/2022 04/23/2023 1 1 Specialty Diagnoses / Procedures Referred By Contac t Referred To Contact CT IMAGING Diagnoses Lung nodules Procedures CT CHEST WO IVCON DIAGNOSTIC COMPUTED TOMOGRAPHY THORAX W/O Kesha Tripathi MD [address] [facility] [place] [address] [place] [address] Referral ID Status Reason Start Date Expiration Date V isits Requested Visits Authorized [id number] Closed Auto-Generate d Referral 08/10/2022 04/23/2023 1 1 Specialty Diagnoses / Procedures Referred By Contac t Referred To Contact CT IMAGING Diagnoses Former cigarette smoker Procedures CT LUNG SCREEN WO IVCON COMPUTED TOMOGRAPHY THORAX LW DOSE LNG CA SCR Amado- Christie Prabhakar, QUANTITATIVE MANAGER.PROGRAM COUNSELOR [address] [place] [address] Ct Imaging [facility] Referral ID Status Reason Start Date Expiration Date Visits Requested Visits Authorized [id number] Pending Review Auto-Generat ed Referral 07/02/2023 07/31/2024 1 1 Advance Directives Documents on File Type Date Recorded 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 ACP-Advance Directive 10/22/2020 12:00 AM Documents on File Type Date Recorded 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 ACP-Advance Directive 10/22/2020 12:00 AM Summary Purpose Family History No Family History Records FoundNo Family History Records Found Additional Source Comments Reason for Visit (unrecogniz ed section and content) Reason Comments Radiology CT Specialty Diagnoses / Procedures Referred By Contac t Referred To Contact CT IMAGING Diagnoses Lung nodules Shortness of breath Procedures CT CHEST WO IVCON CAT SCAN OF CHEST Trent, Melyssa, QUANTITATIVE MANAGER.PROGRAM COUNSELOR [address] [place] [address] Ct Imaging Referral ID Status Reason Start Date Expiration Date V isits Requested Visits Authorized Closed Auto-Generate d Referral 08/01/2021 03/02/2022 1 1 Reason Onset Date Comments Refill Request 08/12/2021 Reason Comments Results Reason Comments Follow Up follow-up chest CT Reason Comments F/U 3 Month Reason Comments Pain (foot) left x 1-2 weeks, po ssible twisted Reason Onset Date Comments Refill Request 10/28/2021 Reason Onset Date Comments Refill Request 12/05/2021 Reason Onset Date Comments Refill Request 01/07/2022 Reason Comments Results Labs Reason Comments Refill Request Reason Onset Date Comments Refill Request 03/23/2022 Reason Onset Date Comments 6 Month Exam Pre-Op Exam Immunizations 03/23/2022 Flu vaccination Reason Comments Forms Pre op [facility] Reason Comments Established Patient Reason Onset Date Comments Refill Request 05/26/2022 Reason Comments Follow Up COPD Abnormal Chest X-ray Reason Comments F/U 6 months Reason Comments Overnight oximetry on CPAP Reason Onset Date Comments Refill Request 08/10/2022 Reason Onset Date Comments Refill Request 08/27/2022 Reason Comments Follow Up Reason Onset Date Comments Refill Request 11/12/2022 Reason Onset Date Comments Refill Request 12/14/2022 Reason Comments Forms [employer] supplies Reason Onset Date Comments Refill Request 12/23/2022 Reason Onset Date Comments Refill Request 01/04/2023 Reason Onset Date Comments Refill Request 01/03/2023 Reason Onset Date Comments Refill Request 02/08/2023 Specialty Diagnoses / Procedures Referred By Contac t Referred To Contact CT IMAGING Diagnoses Lung nodules Procedures CT CHEST WO IVCON DIAGNOSTIC COMPUTED TOMOGRAPHY THORAX W/O Kesha Tripathi MD [address] [place] [address] [place] [address] Referral ID Status Reason Start Date Expiration Date V isits Requested Visits Authorized [id number] Closed Auto-Generate d Referral 08/10/2022 04/23/2023 1 1 Reason Onset Date Comments Refill Request 03/22/2023 Reason Onset Date Comments Refill Request 06/05/2023 (unrecognized sect ion and content) No Status Records FoundNo Status Records Found INFORMATION SOURCE (unrecogn ized section and content) DATE CREATED AUTHOR AUTHOR'S MANUEL ZARAGOZA 02/01/2023 [facility] Source Comments (unrecognize d section and content) In the event this informatio n is protected by the Federal Confidentiality of Alcohol and Drug Abuse Patient Records regulations: The Federal rules restrict any use of the information to criminally investigate or prosecute any alcohol or drug abuse patient.[facility] the event this information is protected by the Federal Confidentiality of Alcohol and Drug Abuse Patient Records regulations: The Federal rules restrict any use of the information to criminally investigate or prosecute any alcohol or drug abuse patient.[facility] the event this information is protected by the Federal Confidentiality of Alcohol and Drug Abuse Patient Records regulations: The Federal rules restrict any use of the information to criminally investigate or prosecute any alcohol or drug abuse patient.[facility] the event this information is protected by the Federal Confidentiality of Alcohol and Drug Abuse Patient Records regulations: The Federal rules restrict any use of the information to criminally investigate or prosecute any alcohol or drug abuse patient.[facility] the event this information is protected by the Federal Confidentiality of Alcohol and Drug Abuse Patient Records regulations: The Federal rules restrict any use of the information to criminally investigate or prosecute any alcohol or drug abuse patient.[facility] the event this information is protected by the Federal Confidentiality of Alcohol and Drug Abuse Patient Records regulations: The Federal rules restrict any use of the information to criminally investigate or prosecute any alcohol or drug abuse patient.[facility] the event this information is protected by the Federal Confidentiality of Alcohol and Drug Abuse Patient Records regulations: The Federal rules restrict any use of the information to criminally investigate or prosecute any alcohol or drug abuse patient.[facility] the event this information is protected by the Federal Confidentiality of Alcohol and Drug Abuse Patient Records regulations: The Federal rules restrict any use of the information to criminally investigate or prosecute any alcohol or drug abuse patient.[facility] the event this information is protected by the Federal Confidentiality of Alcohol and Drug Abuse Patient Records regulations: The Federal rules restrict any use of the information to criminally investigate or prosecute any alcohol or drug abuse patient.[facility] the event this information is protected by the Federal Confidentiality of Alcohol and Drug Abuse Patient Records regulations: The Federal rules restrict any use of the information to criminally investigate or prosecute any alcohol or drug abuse patient.[facility] the event this information is protected by the Federal Confidentiality of Alcohol and Drug Abuse Patient Records regulations: The Federal rules restrict any use of the information to criminally investigate or prosecute any alcohol or drug abuse patient.[facility] the event this information is protected by the Federal Confidentiality of Alcohol and Drug Abuse Patient Records regulations: The Federal rules restrict any use of the information to criminally investigate or prosecute any alcohol or drug abuse patient.[facility] the event this information is protected by the Federal Confidentiality of Alcohol and Drug Abuse Patient Records regulations: The Federal rules restrict any use of the information to criminally investigate or prosecute any alcohol or drug abuse patient.[facility] the event this information is protected by the Federal Confidentiality of Alcohol and Drug Abuse Patient Records regulations: The Federal rules restrict any use of the information to criminally investigate or prosecute any alcohol or drug abuse patient.[facility] the event this information is protected by the Federal Confidentiality of Alcohol and Drug Abuse Patient Records regulations: The Federal rules restrict any use of the information to criminally investigate or prosecute any alcohol or drug abuse patient.[facility] the event this information is protected by the Federal Confidentiality of Alcohol and Drug Abuse Patient Records regulations: The Federal rules restrict any use of the information to criminally investigate or prosecute any alcohol or drug abuse patient.[facility] the event this information is protected by the Federal Confidentiality of Alcohol and Drug Abuse Patient Records regulations: The Federal rules restrict any use of the information to criminally investigate or prosecute any alcohol or drug abuse patient.[facility] the event this information is protected by the Federal Confidentiality of Alcohol and Drug Abuse Patient Records regulations: The Federal rules restrict any use of the information to criminally investigate or prosecute any alcohol or drug abuse patient.[facility] the event this information is protected by the Federal Confidentiality of Alcohol and Drug Abuse Patient Records regulations: The Federal rules restrict any use of the information to criminally investigate or prosecute any alcohol or drug abuse patient.[facility] the event this information is protected by the Federal Confidentiality of Alcohol and Drug Abuse Patient Records regulations: The Federal rules restrict any use of the information to criminally investigate or prosecute any alcohol or drug abuse patient.[facility] the event this information is protected by the Federal Confidentiality of Alcohol and Drug Abuse Patient Records regulations: The Federal rules restrict any use of the information to criminally investigate or prosecute any alcohol or drug abuse patient.[facility] the event this information is protected by the Federal Confidentiality of Alcohol and Drug Abuse Patient Records regulations: The Federal rules restrict any use of the information to criminally investigate or prosecute any alcohol or drug abuse patient.[facility]In the event this information is protected by the Federal Confidentiality of Alcohol and Drug Abuse Patient Records regulations: The Federal rules restrict any use of the information to criminally investigate or prosecute any alcohol or drug abuse patient.[facility] HospitalIn the event this information is protected by the Federal Confidentiality of Alcohol and Drug Abuse Patient Records regulations: The Federal rules restrict any use of the information to criminally investigate or prosecute any alcohol or drug abuse patient.[facility] HospitalIn the event this information is protected by the Federal Confidentiality of Alcohol and Drug Abuse Patient Records regulations: The Federal rules restrict any use of the information to criminally investigate or prosecute any alcohol or drug abuse patient.[facility] HospitalIn the event this information is protected by the Federal Confidentiality of Alcohol and Drug Abuse Patient Records regulations: The Federal rules restrict any use of the information to criminally investigate or prosecute any alcohol or drug abuse patient.[facility] HospitalIn the event this information is protected by the Federal Confidentiality of Alcohol and Drug Abuse Patient Records regulations: The Federal rules restrict any use of the information to criminally investigate or prosecute any alcohol or drug abuse patient.[facility] HospitalIn the event this information is protected by the Federal Confidentiality of Alcohol and Drug Abuse Patient Records regulations: The Federal rules restrict any use of the information to criminally investigate or prosecute any alcohol or drug abuse patient.[facility]In the event this information is protected by the Federal Confidentiality of Alcohol and Drug Abuse Patient Records regulations: The Federal rules restrict any use of the information to criminally investigate or prosecute any alcohol or drug abuse patient.[facility]In the event this information is protected by the Federal Confidentiality of Alcohol and Drug Abuse Patient Records regulations: The Federal rules restrict any use of the information to criminally investigate or prosecute any alcohol or drug abuse patient.[facility] HospitalIn the event this information is protected by the Federal Confidentiality of Alcohol and Drug Abuse Patient Records regulations: The Federal rules restrict any use of the information to criminally investigate or prosecute any alcohol or drug abuse patient.[facility]In the event this information is protected by the Federal Confidentiality of Alcohol and Drug Abuse Patient Records regulations: The Federal rules restrict any use of the information to criminally investigate or prosecute any alcohol or drug abuse patient.[facility] HospitalIn the event this information is protected by the Federal Confidentiality of Alcohol and Drug Abuse Patient Records regulations: The Federal rules restrict any use of the information to criminally investigate or prosecute any alcohol or drug abuse patient.[facility] HospitalIn the event this information is protected by the Federal Confidentiality of Alcohol and Drug Abuse Patient Records regulations: The Federal rules restrict any use of the information to criminally investigate or prosecute any alcohol or drug abuse patient.[facility]In the event this information is protected by the Federal Confidentiality of Alcohol and Drug Abuse Patient Records regulations: The Federal rules restrict any use of the information to criminally investigate or prosecute any alcohol or drug abuse patient.[facility] HospitalIn the event this information is protected by the Federal Confidentiality of Alcohol and Drug Abuse Patient Records regulations: The Federal rules restrict any use of the information to criminally investigate or prosecute any alcohol or drug abuse patient.[facility] HospitalIn the event this information is protected by the Federal Confidentiality of Alcohol and Drug Abuse Patient Records regulations: The Federal rules restrict any use of the information to criminally investigate or prosecute any alcohol or drug abuse patient.[facility] HospitalIn the event this information is protected by the Federal Confidentiality of Alcohol and Drug Abuse Patient Records regulations: The Federal rules restrict any use of the information to criminally investigate or prosecute any alcohol or drug abuse patient.[facility] HospitalIn the event this information is protected by the Federal Confidentiality of Alcohol and Drug Abuse Patient Records regulations: The Federal rules restrict any use of the information to criminally investigate or prosecute any alcohol or drug abuse patient.[facility] HospitalIn the event this information is protected by the Federal Confidentiality of Alcohol and Drug Abuse Patient Records regulations: The Federal rules restrict any use of the information to criminally investigate or prosecute any alcohol or drug abuse patient.[facility] HospitalIn the event this information is protected by the Federal Confidentiality of Alcohol and Drug Abuse Patient Records regulations: The Federal rules restrict any use of the information to criminally investigate or prosecute any alcohol or drug abuse patient.[facility] Care Teams (unrecognized sec tion and content) [employer] Relationship Specialty Start Date End Date Anuradha Hurtado MD [address] [place] [address] PCP - General Family Practice 01/29/21 [employer] Adjuster Relationship Specialty Start Date End Date Anuradha Hurtado MD [address] [facility] [place] [address] PCP - General Family Practice 01/29/21 [employer] Adjuster Relationship Specialty Start Date End Date Anuradha Hurtado MD [address] [place] [address] PCP - General Family Practice 01/29/21 [employer] Adjuster Relationship Specialty Start Date End Date Anuradha Hurtado MD [address] [place] [address] PCP - General Family Practice 01/29/21 [employer] Adjuster Relationship Specialty Start Date End Date Anuradha Hurtado MD [address] [place] [address] PCP - General Family Practice 01/29/21 [employer] Adjuster Relationship Specialty Start Date End Date Anuradha Hurtado MD [address] [place] [address] PCP - General Family Practice 01/29/21 [employer] Adjuster Relationship Specialty Start Date End Date Anuradha Hurtado MD [address] [place] [address] PCP - General Family Practice 01/29/21 [employer] Adjuster Relationship Specialty Start Date End Date Anuradha Hurtado MD [address] [place] [address] PCP - General Family Practice 01/29/21 [employer] Adjuster Relationship Specialty Start Date End Date Anuradha Hurtado MD [address] [place] [address] PCP - General Family Practice 01/29/21 [employer] Adjuster Relationship Specialty Start Date End Date Anuradha Hurtado MD [address] [place] [address] PCP - General Family Medicine 01/29/21 [employer] Adjuster Relationship Specialty Start Date End Date Anuradha Hurtado MD [address] [place] [address] PCP - General Family Medicine 01/29/21 [employer] Adjuster Relationship Specialty Start Date End Date Anuradha Hurtado MD [address] [place] [address] PCP - General Family Medicine 01/29/21 [employer] Adjuster Relationship Specialty Start Date End Date Anuradha Hurtado MD [address] [place] [address] PCP - General Family Medicine 01/29/21 [employer] Adjuster Relationship Specialty Start Date End Date Anuradha Hurtado MD [address] [place] [address] PCP - General Family Medicine 01/29/21 [employer] Adjuster Relationship Specialty Start Date End Date Anuradha Hurtado MD [address] [place] [address] PCP - General Family Medicine 01/29/21 [employer] Adjuster Relationship Specialty Start Date End Date Anuradha Hurtado MD [address] [place] [address] PCP - General Family Medicine 01/29/21 [employer] Adjuster Relationship Specialty Start Date End Date Anuradha Hurtado MD [address] [place] [address] PCP - General Family Medicine 01/29/21 [employer] Adjuster Relationship Specialty Start Date End Date Anuradha Hurtado MD [address] [place] [address] PCP - General Family Medicine 01/29/21 [employer] Adjuster Relationship Specialty Start Date End Date Anuradha Hurtado MD [address] [place] [address] PCP - General Family Medicine 01/29/21 [employer] Adjuster Relationship Specialty Start Date End Date Anuradha Hurtado MD [address] [place] [address] PCP - General Family Medicine 01/29/21 [employer] Adjuster Relationship Specialty Start Date End Date Anuradha Hurtado MD [address] [place] [address] PCP - General Family Medicine 01/29/21 [employer] Adjuster Relationship Specialty Start Date End Date Anuradha Hurtado MD [address] [place] [address] PCP - General Family Medicine 01/29/21 [employer] Adjuster Relationship Specialty Start Date End Date Anuradha Hurtado MD [address] [place] [address] PCP - General Family Medicine 01/29/21 [employer] Adjuster Relationship Specialty Start Date End Date Anuradha Hurtado MD [address] [place] [address] PCP - General Family Medicine 01/29/21 [employer] Adjuster Relationship Specialty Start Date End Date Anuradha Hurtado MD [address] [place] [address] PCP - General Family Medicine 01/29/21 [employer] Adjuster Relationship Specialty Start Date End Date Anuradha Hurtado MD [address] [place] [address] PCP - General Family Medicine 01/29/21 [employer] Adjuster Relationship Specialty Start Date End Date Anuradha Hurtado MD [address] [place] [address] PCP - General Family Medicine 01/29/21 [employer] Adjuster Relationship Specialty Start Date End Date Anuradha Hurtado MD [address] [place] [address] PCP - General Family Medicine 01/29/21 [employer] Adjuster Relationship Specialty Start Date End Date Anuradha Hurtado MD [address] [place] [address] PCP - General Family Medicine 01/29/21 [employer] Adjuster Relationship Specialty Start Date End Date Anuradha Hurtado MD [address] [place] [address] PCP - General Family Medicine 01/29/21 [employer] Adjuster Relationship Specialty Start Date End Date Anuradha Hurtado MD [address] [place] [address] PCP - General Family Medicine 01/29/21 [employer] Adjuster Relationship Specialty Start Date End Date Anuradha Hurtado MD [address] [place] [address] PCP - General Family Medicine 01/29/21 [employer] Adjuster Relationship Specialty Start Date End Date Anuradha Hurtado MD [address] [place] [address] PCP - General Family Medicine 01/29/21 FOR RECORDS PERTAINING TO PATIENTS WHO ARE OR HAVE BEEN ENROLLED IN A CHEMICAL DEPENDENCY/SUBSTANCEABUSE PROGRAM, SOME INFORMATION MAY BE OMITTED. This clinical summary was aggregated from multiple sources. Caution should be exercised in using it in the provision of clinical care. This summary normalizes information from multiple sources, and as a consequence, information in this document may materially change the coding, format and clinical context of patient data. In addition, data may be omitted in some cases. CLINICAL DECISIONS SHOULD BE BASED ON THE PRIMARY CLINICAL RECORDS. [facility] provides no warranty or guarantee of the accuracy or completeness of information in this document.
--- NOTE | 2023-07-12 08:33 | STRESSREP ---
Stress Test Report Pharmacologic myocardial perfusion stress test. 73-year-old man with a history of coronary artery disease and chest pain Resting EKG demonstrates sinus rhythm with a rate of 63 bpm. A right bundle branch block is noted. Resting blood pressure is 130/82 mmHg. 0.4 mg of regadenoson was infused per usual protocol followed by rapid intravenous saline flush injection. Continuous EKG monitoring was performed. The maximum heart rate was 81 bpm which was 54% of max impacted heart rate the maximum workload was 1 metabolic equivalent. At rest there were no ST or T wave changes noted to suggest ischemia and at peak infusion nonspecific ST changes were noted which did not meet the criteria for ischemia. No clinical angina is noted. The final blood pressure was 134/82 mmHg. Myocardial perfusion protocol. 14.7 mCi of technetium 99m sestamibi was injected at rest. 0.4 mg of regadenoson was infused per usual protocol. At peak infusion 44.6 mCi of technetium 99m sestamibi was injected stress images were obtained stress and rest images were reconstructed and compared in the short axis vertical long and horizontal long axis. Gated images were also obtained. Perfusion SPECT analysis: Review of the stress images demonstrate normal uptake of tracer noted in all areas of the myocardium. There is some GI attenuation artifact noted in the inferior basal wall which is present on rest and stress. The resting images similar demonstrated normal uptake of tracer noted in all areas of the myocardium. No areas of reversibility are noted to suggest ischemia and no previous infarct is noted. Gated SPECT analysis: The gated ejection fraction is 59%. Conclusion: Normal pharmacologic myocardial perfusion stress test. Inferior basal GI attenuation artifact noted Preserved ejection fraction.
== END | disposition home or self-care (01) ==
LOC: CVS 06:02
PROVIDERS: PCP Family Medicine; Referring Provider Nurse Practitioner Gerontology; Visit Provider Nurse Practitioner Gerontology
DX: R06.02 Shortness of breath (principal)
CPT/HCPCS: 78452; 93017; A9500; J2785

== ENCOUNTER → 2024-05-22 | Outpatient (CLI) | payer MEDICARE, OTHER, SELFPAY ==
[2024-05-22 09:35] LABS: AST(SGOT) 22 U/L (15-37); Alanine Aminotransfer ALT/SGPT 32 U/L (16-61); Albumin, Serum 3.5 g/dL (3.2-5.0); Alkaline Phosphatase 67 U/L (45-117); Bilirubin, Direct 0.32 mg/dL (0.00-0.30); Cholesterol 110 mg/dL (200); High Density Lipoprotein 57 mg/dL; Protein, Total 6.5 g/dL (6.4-8.2); Triglycerides 91 mg/dL; Very Low Density Lipoprotein 18 mg/dL (5-40)
== END | disposition home or self-care (01) ==
LOC: LAB 08:44
PROVIDERS: PCP Family Medicine; Referring Provider Physician Assistant Medical; Visit Provider Physician Assistant Medical
DX: E78.5 Hyperlipidemia, unspecified (principal)
CPT/HCPCS: 36415; 80061; 80076

== ENCOUNTER 2024-08-26 18:40 | Emergency (ER) | payer MEDICARE, OTHER, SELFPAY ==
[2024-08-26 18:44] VITALS: BP 169/100; PULSE 65; RESP 20; TEMP 36.4; O2SAT 98; BMI 41.2
--- NOTE | 2024-08-26 18:53 | EX.ED.DYSGE1 ---
HPI History of Present Illness Chief Complaint: Hypertension Detail of Chief Complaint: High blood pressure was the reason that presented to him however he has oth Informant: patient Onset/Context/Timing Onset: Today Context: Sudden Onset Timing: Intermittent Quality: High blood pressure, systolic approximately 170, vertigo when supine and wa Location: Cardiovascular and inner ear Current Severity: Gone Maximum Severity: Severe (With respect to the vertigo.) Worsened by: Vertigo worse with patient is supine, nothing with respect to the discomfor Relieved by: Nothing Associated Symptoms Associated Symptoms: See HPI narrative Narrative Narrative: Patient is a 74-year-old male. He has history of four-vessel bypass surgery, hypertension, type 2 diabetes, hypercholesterolemia who presents because of elevated blood pressure of 170 systolic. He had discomfort in his chest when his blood pressure was elevated. 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 There is no exacerbating or precipitating factors other than the blood pressure. There was no associated symptoms or radiation. Patient states he is always short of breath. He had no new shortness of breath. He denies orthopnea or PND. He then clarified his description of the chest discomfort as a warm sensation in his chest. The vertigo occurs when he is supine. It is alleviated when he is upright. He states it is similar to being really drunk. He denies headache, visual, ocular or auditory symptoms. No trouble speech or swallowing. He denies paresthesia, anesthesia Medicus other than his left upper extremity which she has had since surgery 3 months ago. He denies problems with balance or coordination. Patient denies black or maroon stool. He had several bowel movements today. They were formed. Recent Illness/Hospitalization: No [facility] Medical History Shoulder fracture, left Wears hearing aid Wears glasses Anxiety Alcohol use History of steroid therapy Diabetes Arthritis History of renal disease High cholesterol Restless legs Shortness of breath on exertion Former smoker CPAP (continuous positive airway pressure) dependence Sleep apnea COPD (chronic obstructive pulmonary disease) History of echocardiogram History of stress test Cardiology follow-up encounter Essential hypertension Atherosclerosis of coronary artery bypass graft without angina pectoris Anxiety and depression Snoring Daytime somnolence BABS (obstructive sleep apnea) GERD (gastroesophageal reflux disease) Hyperlipidemia Obesity (BMI 30.0-34.9) Home Medications ?Medication ?Instructions ?Recorded ?Last Taken ?Type aspirin 81 mg tablet,delayed 81 mg PO DAILY@0800 07/15/13 04/29/22 History release atorvastatin 80 mg tablet 80 mg PO QHS 07/15/13 07/14/13 History 2100 cholecalciferol (vitamin D3) 25 1,000 unit PO DAILY 07/15/13 07/14/13 History mcg (1,000 unit) capsule 0800 citalopram 10 mg tablet 10 mg PO DAILY 07/15/13 09/05/13 09:30 History clopidogrel 75 mg tablet 75 mg PO DAILY 07/15/13 04/25/22 History nitroglycerin 0.4 mg sublingual 0.4 mg sublingual Q5M PRN Chest 07/15/13 07/15/13 History tablet Pain 0400 ascorbic acid (vitamin C) 1,000 mg 1 g PO QDAY 07/16/17 Unknown History tablet losartan 25 mg tablet 25 mg PO QDAY 07/16/17 04/30/22 History metoprolol succinate 25 mg 25 mg PO QDAY 07/16/17 04/30/22 History tablet,extended release 24 hr gabapentin 300 mg capsule 600 mg PO QHS 08/30/17 Unknown History glucosamine sulfate 1,000 mg 1,000 mg PO QDAY 08/30/17 Unknown History capsule magnesium oxide 500 mg capsule 500 mg PO QDAY 08/30/17 Unknown History sodium chloride-aloe vera nasal 1 spray intranasal Q1-4H PRN 05/09/18 Unknown History spray ([place] Saline Gel nasal spray) Allergies meloxicam 15 mg tablet 15 mg PO DAILY 03/19/21 Unknown History isosorbide mononitrate 30 mg 30 mg PO DAILY 06/13/21 04/30/22 History tablet,extended release 24 hr tiotropium 2.5 mcg-olodaterol 2.5 2 puff inhalation DAILY 06/13/21 Unknown History mcg/actuation mist for inhalation hydroxyzine pamoate 25 mg capsule 25 mg PO ONCE PRN Anxiety 12/16/21 Unknown History metformin 500 mg tablet,extended 500 mg PO DAILY 12/16/21 Unknown History release 24 hr melatonin 10 mg capsule 10 mg PO HS PRN 05/23/24 Unknown History ranolazine 500 mg tablet,extended 500 mg PO .COMPLEX #180 tabs 06/05/24 Unknown Rx release,12 hr Allergy/AdvReac Type Severity Reaction Status Date / Time No Known Allergies Allergy Verified 08/26/24 18:44 Family History Father CAD (coronary artery disease) Hypertension Myocardial infarction Hx of CABG Surgical History History of shoulder replacement History of heart surgery History of cataract extraction History of hernia repair History of tonsillectomy History of laminectomy Presence of stent in coronary artery (~03/16/13) Postsurgical percutaneous transluminal coronary angioplasty (PTCA) status Presence of aortocoronary bypass graft (~09/28/12) Social History (Updated 08/26/24 @ 18:[address] Azael Caceres MD) household members: spouse Smoking Status: Former smoker how long ago did patient quit smokin years ago alcohol intake: current alcohol intake frequency: a few times a week Alcohol type: beer and hard liquor details: occasional beer substance use type: does not use caffeine: Yes Type: coffee Number of servings: 2 ROS ROS ED Constitutional Constitutional ED: Denies chills, fever(s), subjective or sweats Eyes Eyes: Denies blurry vision, change in vision or diplopia ENT ENT ED: Denies rhinorrhea or sore throat Cardiovascular Cardiovascular: Reports chest pain; Denies orthopnea, palpitations, paroxysmal nocturnal dyspnea or racing heartbeat Respiratory/Chest Respiratory/Chest: Reports dyspnea; Denies cough, dyspnea on exertion, orthopnea, paroxysmal nocturnal dyspnea or sputum Gastrointestinal Gastrointestinal: Denies abdominal pain, nausea or vomiting Musculoskeletal Musculoskeletal: Denies back pain or neck pain Integumentary Denies rash Neurologic Neurologic: Reports paresthesias LUE (Since surgery 3 months ago.); Denies weakness Endocrine Endocrinology: Denies cold intolerance or heat intolerance Hematologic/Lymphatic Hematologic/Lymphatic: Reports systems reviewed and no addt'l complaints, except as documented EXAM Physical Exam Const Vital Signs: 08/26/24 18:44 08/26/24 19:01 Temperature 97.5 F L Temperature Source Temporal Pulse Rate 65 Respiratory Rate 20 H Respiratory Effort Short of Breath Respiratory Pattern Normal Blood Pressure 169/100 H Blood Pressure Mean 123 Pulse Ox 98 Oxygen Delivery Method Room Air Positive well nourished and well developed Constitutional Narrative: BMI is 41.2. He appears in no distress. Blood pressure is elevated. General Appearance ED: well developed; Negative for pallor HEENT HEENT Narrative: Head is atraumatic normocephalic. Patient has hearing aids bilaterally. Nares patent. Posterior pharynx normal. Uvula midline. No deviation with protrusion. No facial asymmetry. Eyes PERRL and EOMs intact bilaterally Eyes Narrative: No nystagmus with central gaze. No visual disturbance. General Eye ED: Negative for pale conjunctiva or scleral icterus Neck no lymphadenopathy, supple and no JVD General: Negative for tenderness Chest Wall inspection of chest normal and palpation of chest normal Resp normal respiratory effort and clear to auscultation bilaterally Cardio regular rate, regular rhythm, S1 normal heart sound, S2 normal heart sound and no murmurs Extremity normal to inspection General Extremety ED: Negative for edema General Extremity: Negative for edema Neuro oriented x3, CN's II-XII intact bilaterally and no sensory deficits noted Neuro Narrative: There is no dysmetria. Gait was observed and normal. The eye askew test was negative. Violette-Hallpike maneuver was positive and worse when his head was to the left. Sensorium / Orientation: alert Motor Exam: strength 5/5 throughout Skin no rashes or lesions noted, no wounds and skin turgor normal General Skin Exam: elasticity normal; Negative for jaundice or pallor MDM MDM MDM Narrative Medical decision making narrative: Patient has multiple risk factors for coronary disease. For this reason we will obtain EKG and troponin especially since onset of pain was greater than 10 hours ago. Will treat with Zofran since he was nauseous with Violette-Hallpike maneuver before performing Yoni maneuver. Will monitor his blood pressure. BMP was obtained to assess glucose, CO2 anion gap and renal function. CBC to rule out anemia. History & Record Review Additional record(s) reviewed:: Prior outpatient record (Outpatient orthopedic note when Plavix was held for procedure. He had other notes where meds were held when he underwent orthopedic procedures as well. H&P performed April [address] Bass was reviewed.) and Prior ED visit (Seen by Dr. Lamas May 2022 for dislocated left shoulder.) Lab Data Attestation: I reviewed the patient's lab results. Lab results narrative: CBC is unremarkable creatinine slightly elevated 1.21. With an estimated GFR 73.7. First troponin with symptoms 10 hours ago was normal. Labs: Laboratory Results - last 24 hr 08/26/24 08/26/24 08/26/24 19:07 19:07 19:07 WBC 8.1 RBC 4.71 Hgb 14.7 Hct 44.0 MCV 93.4 MCH 31.2 MCHC 33.4 RDW Std Deviation 45.8 H RDW Coeff of Eddi 13.3 Plt Count 237 MPV 10.2 Sodium Cancelled 138 Potassium Cancelled 4.3 Chloride Cancelled Carbon Dioxide Anion Gap BUN Creatinine Estim Creat Clear Calc Est GFR (MDRD) Non-Af BUN/Creatinine Ratio Glucose Calcium Troponin T High Sens 08/26/24 08/26/24 08/26/24 19:07 19:07 19:07 WBC RBC Hgb Hct MCV MCH MCHC RDW Std Deviation RDW Coeff of Eddi Plt Count MPV Sodium Potassium Chloride 104 Carbon Dioxide Cancelled 22.9 Anion Gap Cancelled 11 BUN Cancelled Creatinine Estim Creat Clear Calc Est GFR (MDRD) Non-Af BUN/Creatinine Ratio Glucose Calcium Troponin T High Sens 08/26/24 08/26/24 08/26/24 19:07 19:07 19:07 WBC RBC Hgb Hct MCV MCH MCHC RDW Std Deviation RDW Coeff of Eddi Plt Count MPV Sodium Potassium Chloride Carbon Dioxide Anion Gap BUN 24 H Creatinine Cancelled 1.21 H Estim Creat Clear Calc Cancelled 73.76 Est GFR (MDRD) Non-Af Cancelled BUN/Creatinine Ratio Glucose Calcium Troponin T High Sens 08/26/24 08/26/24 08/26/24 19:07 19:07 19:07 WBC RBC Hgb Hct MCV MCH MCHC RDW Std Deviation RDW Coeff of Eddi Plt Count MPV Sodium Potassium Chloride Carbon Dioxide Anion Gap BUN Creatinine Estim Creat Clear Calc Est GFR (MDRD) Non-Af 63 BUN/Creatinine Ratio Cancelled 19.4 Glucose Cancelled 131 H Calcium Cancelled Troponin T High Sens 08/26/24 19:07 WBC RBC Hgb Hct MCV MCH MCHC RDW Std Deviation RDW Coeff of Eddi Plt Count MPV Sodium Potassium Chloride Carbon Dioxide Anion Gap BUN Creatinine Estim Creat Clear Calc Est GFR (MDRD) Non-Af BUN/Creatinine Ratio Glucose Calcium 9.2 Troponin T High Sens 12 Treatment and Re-Evaluation :: Yoni maneuver was performed. Patient was asymptomatic with head to the right and left. Upright position he is now not complaining of pain. When the Thompson-Hallpike maneuver was performed and patient was raised rapidly as when he had symptoms and had obvious nystagmus. This may alleviated/treated his paroxysmal benign positional vertigo. Of note since he does have history of cerumen impaction his ears were assessed. There is 50% narrowing of the canal on the right side and only about 10 to 15% on the left side due to cerumen. TMs appeared normal. Comments:: Patient was reassessed at approximately 2019. He has no vertiginous symptoms. Symptoms are not precipitated with change in position. He will be discharged to home. Discharge Plan Triage Chief Complaint: Hypertension Other Complaint: Dizziness ED Provider: Azael Caceres Dx/Rx/DC Orders Clinical Impression: Benign paroxysmal positional vertigo of left ear, Atherosclerosis of coronary artery bypass graft without angina pectoris, Hyperlipidemia, Elevated blood pressure reading with diagnosis of hypertension, Chest discomfort, BMI greater than 40 Instructions: ED BPV Vertigo, ED Hypertension, Established Prescriptions: No Action magnesium oxide 500 mg capsule 500 mg PO QDAY glucosamine sulfate 1,000 mg capsule 1,000 mg PO QDAY ascorbic acid (vitamin C) 1,000 mg tablet 1 g PO QDAY losartan 25 mg tablet 25 mg PO QDAY metoprolol succinate 25 mg tablet extended release 24 hr 25 mg PO QDAY gabapentin 300 mg capsule 600 mg PO QHS [place] Saline Gel spray,non-aerosol 1 spray INTRANASAL Q1-4H PRN (Reason: Allergies) meloxicam 15 mg tablet 15 mg PO DAILY tiotropium-olodaterol 2.5-2.5 mcg/actuation mist 2 puff inhalation DAILY isosorbide mononitrate 30 mg tablet extended release 24 hr 30 mg PO DAILY metformin 500 mg tablet extended release 24 hr 500 mg PO DAILY hydroxyzine pamoate 25 mg capsule 25 mg PO ONCE PRN (Reason: Anxiety) melatonin 10 mg capsule 10 mg PO HS PRN atorvastatin 80 MG tablet 80 mg PO QHS Patient Comments: LOWERS CHOLESTEROL citalopram 10 MG tablet 10 mg PO DAILY Patient Comments: MOOD/ANXIETY clopidogrel 75 MG tablet 75 mg PO DAILY Patient Comments: PREVENT BLOOD CLOTS aspirin 81 MG tablet 81 mg PO DAILY@0800 Patient Comments: HEART nitroglycerin 0.4 MG tablet 0.4 mg SUBLINGUAL Q5M PRN (Reason: Chest Pain) Patient Comments: CHEST PAIN cholecalciferol (vitamin D3) 1,000 UNIT capsule 1,000 unit PO DAILY Patient Comments: SUPPLEMENT ranolazine 500 mg tablet extended release 12 hr 500 mg PO .COMPLEX Qty: 180 3RF Rx Instructions: 500 mg orally twice daily with food: Fax to [facility] @ ; Primary Care Provider: Fred Cowart Referrals: Fred Cowart MD [Primary Care Provider] - As Needed Print Language: Thai Disposition Disposition: Home, Self Care
--- NOTE | 2024-08-26 19:09 | ED.RN ---
C/O DIZZINESS THAT CHANGES WITH POSITIONING
[2024-08-26] MEDS: Ondansetron ODT 4 MG Tablet PO (19:11)
[2024-08-26 19:13] LABS: Hemoglobin 14.7 g/dL (13.0-16.5); Mean Corp Hgb Conc 33.4 g/dL (32-36); Mean Corpuscular Hgb 31.2 pg (27.0-32.0); Mean Corpuscular Volume 93.4 fL (80-94); Mean Platelet Vol. 10.2 fl (6.2-12.0); Platelet Count 237 K/mm3 (150-450); RBC Distribution Width CV 13.3 % (11.6-14.6); RBC Distribution Width SD 45.8 fl (35.1-43.9); Red Blood Count 4.71 M/mm3 (4.6-6.2); White Blood Count 8.1 K/mm3 (4.4-11.0)
[2024-08-26 19:54] LABS: Anion Gap 11 (5-15); BUN 24 mg/dL (4-19); BUN/Creat Ratio 19.4 RATIO (10-20); Calcium,Total 9.2 mg/dL (7.6-11.0); Carbon Dioxide 22.9 mmol/L (21.0-32.0); Chloride 104 mmol/L (98-108); Creatinine, Serum 1.21 mg/dL (0.70-1.20); EST Glomerular Filtration Rate 63 (>60); Estimated Creatinine Clearance 73.76 ml/min (50-250); Glucose 131 mg/dL (70-99); Potassium 4.3 mmol/L (3.3-5.1); Sodium Level 138 mmol/L (133-145); Troponin T High Sensitivity 12 ng/L (<=22)
[2024-08-26 20:30] VITALS: BP 162/87; PULSE 57; RESP 16; O2SAT 96
== END 2024-08-26 20:33 | disposition home or self-care (01) ==
PROVIDERS: Emergency Provider Emergency Medicine; PCP Family Medicine; Visit Provider Emergency Medicine
DX: H81.12 Benign paroxysmal vertigo, left ear (principal); J44.9 Chronic obstructive pulmonary disease, unspecified; Z68.41 Body mass index [BMI] 40.0-44.9, adult; E11.9 Type 2 diabetes mellitus without complications; R07.89 Other chest pain; I10 Essential (primary) hypertension; I25.10 Atherosclerotic heart disease of native coronary artery without angina pectoris; F41.9 Anxiety disorder, unspecified; K21.9 Gastro-esophageal reflux disease without esophagitis; F32.A Depression, unspecified; E66.9 Obesity, unspecified; E78.00 Pure hypercholesterolemia, unspecified; G47.33 Obstructive sleep apnea (adult) (pediatric); Z95.1 Presence of aortocoronary bypass graft; Z79.82 Long term (current) use of aspirin; Z79.84 Long term (current) use of oral hypoglycemic drugs; Z79.02 Long term (current) use of antithrombotics/antiplatelets; Z79.899 Other long term (current) drug therapy; Z87.891 Personal history of nicotine dependence
CPT/HCPCS: 80048; 84484; 85027; 93005; 99285; A4216